=== PATIENT | female | born 1935 | race Caucasian/White ===

== ENCOUNTER → 2021-10-27 06:20 | Outpatient (CLI) | payer MEDICARE, SELFPAY ==
[2021-10-27 19:09] LABS: Anion Gap 9.3 mEq/L (5-15); Blood Urea Nitrogen 22 mg/dl (7-17); Calcium 9.2 mg/dl (8.4-10.2); Carbon Dioxide 30 mmol/L (22.0-30.0); Chloride 103 mmol/L (98-107); Estimated Glomerular Filt Rate 59 ml/min (>60); GFR (African American) 72 ML/MIN (>60); Glucose 85 mg/dl (74-100); Potassium 4.3 mmoL/L (3.5-5.1); Sodium 138 mmol/L (136-145)
== END ==
PROVIDERS: PCP Nurse Practitioner; Visit Provider Nurse Practitioner
DX: I10 Essential (primary) hypertension (principal)
CPT/HCPCS: 80048

== ENCOUNTER → 2022-02-04 11:25 | Outpatient (CLI) | payer MEDICARE, SELFPAY ==
[2022-02-04 18:16] LABS: Adenovirus,PCR Not Detected (NotDetected); Bordetella Pertussis Not Detected (NotDetected); Chlamydophila Pneumoniae, PCR Not Detected (NotDetected); Coronavirus 19, PCR Not Detected (NotDetected); Coronavirus 229E Not Detected (NotDetected); Coronavirus NL63 Not Detected (NotDetected); Coronavirus OC43 Not Detected (NotDetected); Coronovirus HKU1,PCR Not Detected (NotDetected); Influenza A, PCR Not Detected (NotDetected); Influenza AH1, 2009 Not Detected (NotDetected); Influenza AH1, PCR Not Detected (NotDetected); Influenza AH3,PCR Not Detected (NotDetected); Influenza B, PCR Not Detected (NotDetected); Mycoplasma Pneumoniae, PCR Not Detected (NotDetected); Parainfluenza 1, PCR Not Detected (NotDetected); Parainfluenza 2, PCR Not Detected (NotDetected); Parainfluenza 3, PCR Not Detected (NotDetected); Parainfluenza 4, PCR Not Detected (NotDetected); Respiratory Syncytial Virus Not Detected (NotDetected); Rhinovirus/Enterovirus Not Detected (NotDetected)
[2022-02-04 18:34] LABS: Basophils % 0.7 % (0.1-2.0); Eosinophils # 0.2 K/mm3 (0.0-0.4); Eosinophils % 3.1 % (0.1-12.0); Hematocrit 42.2 % (37.0-47.0); Hemoglobin 13.5 g/dL (12.2-16.2); Lymphocytes # 0.8 K/mm3 (0.7-4.5); Lymphocytes % 15.9 % (10-50); Mean Corpuscular Hemoglobin 30.2 pg (27.0-31.2); Mean Corpuscular Volume 94.4 fl (81-99); Mean Platelet Volume 8.7 fl (7.4-10.4); Monocytes # 0.2 K/mm3 (0.1-1.0); Monocytes % 4.4 % (1.7-9.3); Neutrophils % 75.9 % (37.0-80.0); Platelet Count 155 K/mm3 (142-424); Red Blood Count 4.47 M/mm3 (4.20-5.40); Red Cell Distribution Width 13.8 % (11.5-17.5); White Blood Count 5.3 K/mm3 (4.8-10.8)
[2022-02-05 12:57] LABS: Human Metapneumovirus Detected (NotDetected)
== END ==
PROVIDERS: PCP Nurse Practitioner; Visit Provider Nurse Practitioner
DX: J06.9 Acute upper respiratory infection, unspecified (principal); R05.9 Cough, unspecified; B97.81 Human metapneumovirus as the cause of diseases classified elsewhere
CPT/HCPCS: 85025; 87581; 87632; 87798; C9803; U0003; U0005

== ENCOUNTER → 2023-01-17 07:12 | Outpatient (CLI) | payer MEDICARE, SELFPAY ==
[2023-01-17 19:16] LABS: Basophils % 0.3 % (0.1-2.0); Eosinophils # 0.1 K/mm3 (0.0-0.4); Eosinophils % 2.1 % (0.1-12.0); Hematocrit 44.7 % (37.0-47.0); Hemoglobin 14.9 g/dL (12.2-16.2); Lymphocytes # 1.1 K/mm3 (0.7-4.5); Lymphocytes % 16.1 % (10-50); Mean Corpuscular HGB Conc 33.3 g/dL (31.8-35.4); Mean Corpuscular Hemoglobin 31.5 pg (27.0-31.2); Mean Corpuscular Volume 94.8 fl (81-99); Mean Platelet Volume 9.3 fl (7.4-10.4); Monocytes # 0.4 K/mm3 (0.1-1.0); Monocytes % 5.2 % (1.7-9.3); Neutrophils # 5.1 K/mm3 (1.8-7.8); Neutrophils % 76.3 % (37.0-80.0); Platelet Count 147 K/mm3 (142-424); Red Blood Count 4.72 M/mm3 (4.20-5.40); Red Cell Distribution Width 13.5 % (11.5-17.5); White Blood Count 6.7 K/mm3 (4.8-10.8)
[2023-01-17 19:34] LABS: Alanine Aminotransferase 22 U/L (12-78); Albumin Level 3.8 g/dl (3.5-5.0); Albumin/Globulin Ratio 1.5 (1.1-1.8); Alkaline Phosphatase 79 U/L (38-126); Anion Gap 10.9 mEq/L (5-15); Aspartate Amino Transferase 29 U/L (14-36); Bilirubin,Total 0.3 mg/dl (0.2-1.3); Blood Urea Nitrogen 22 mg/dl (7-17); Calcium 9.2 mg/dl (8.4-10.2); Carbon Dioxide 29 mmol/L (22.0-30.0); Chloride 103 mmol/L (98-107); Estimated Glomerular Filt Rate 52 ml/min (>60); GFR (African American) 63 ML/MIN (>60); Globulin 2.6 g/dL (1.3-3.2); Glucose 81 mg/dl (74-100); Potassium 3.9 mmoL/L (3.5-5.1); Sodium 139 mmol/L (136-145); Total Protein,Serum 6.4 g/dl (6.3-8.2)
[2023-01-17 20:05] LABS: Thyroid Stimulating Hormone 1.79 uIU/mL (0.465-4.68)
== END ==
PROVIDERS: PCP Nurse Practitioner; Visit Provider Nurse Practitioner
DX: I10 Essential (primary) hypertension (principal)
CPT/HCPCS: 80053; 84443; 85025

== ENCOUNTER → 2023-01-20 23:36 | Outpatient (CLI) | payer MEDICARE, SELFPAY ==
[2023-01-20 19:50] LABS: Coronavirus 19, PCR Not Detected (NotDetected); Influenza A, PCR Not Detected (NotDetected); Influenza B, PCR Not Detected (NotDetected)
[2023-01-20 20:00] LABS: Creatinine,Urine Random 82 mg/dL (Not Estab.)
[2023-01-20 20:03] LABS: Microalbumin/Creatinine Ratio 25.4
== END ==
PROVIDERS: PCP Nurse Practitioner; Visit Provider Nurse Practitioner
DX: I10 Essential (primary) hypertension (principal); J06.9 Acute upper respiratory infection, unspecified
CPT/HCPCS: 82043; 82570; 87636

== ENCOUNTER → 2023-02-02 09:18 | Outpatient (CLI) | payer MEDICARE, SELFPAY | PROVIDERS: PCP Nurse Practitioner; Visit Provider Nurse Practitioner | DX: N12 Tubulo-interstitial nephritis, not specified as acute or chronic (principal) | CPT/HCPCS: 87086 ==

== ENCOUNTER 2023-09-06 18:00 | Outpatient (CLI) | payer MEDICARE, SELFPAY ==
[2023-09-06 19:30] LABS: Creatinine,Urine Random 126 mg/dL (Not Estab.)
[2023-09-06 19:33] LABS: Microalbumin/Creatinine Ratio 69.6
[2023-09-06 19:48] LABS: Alanine Aminotransferase 25 U/L (12-78); Albumin Level 3.8 g/dl (3.5-5.0); Albumin/Globulin Ratio 1.4 (1.1-1.8); Alkaline Phosphatase 74 U/L (38-126); Aspartate Amino Transferase 32 U/L (14-36); Bilirubin,Total 0.5 mg/dl (0.2-1.3); Blood Urea Nitrogen 39 mg/dl (7-17); Calcium 9.2 mg/dl (8.4-10.2); Carbon Dioxide 28 mmol/L (22.0-30.0); Chloride 101 mmol/L (98-107); Estimated Glomerular Filt Rate 39 ml/min (>60); GFR (African American) 47 ML/MIN (>60); Globulin 2.7 g/dL (1.3-3.2); Glucose 123 mg/dl (74-100); Sodium 139 mmol/L (136-145); Total Protein,Serum 6.5 g/dl (6.3-8.2)
== END 2023-09-06 23:59 | disposition home or self-care (01) ==
LOC: LAB.DROPOF 09-07 13:54
PROVIDERS: PCP Nurse Practitioner; Visit Provider Nurse Practitioner
DX: I10 Essential (primary) hypertension (principal)
CPT/HCPCS: 80053; 82043; 82570

== ENCOUNTER 2024-02-01 10:15 | Outpatient (CLI) | payer MEDICARE, SELFPAY ==
[2024-02-01 18:53] LABS: Basophils # 0.1 K/mm3 (0-0.2); Basophils % 0.8 % (0.1-2.0); Eosinophils # 0.1 K/mm3 (0.0-0.4); Eosinophils % 1.1 % (0.1-12.0); Hematocrit 46.3 % (37.0-47.0); Hemoglobin 15.5 g/dL (12.2-16.2); Lymphocytes # 0.9 K/mm3 (0.7-4.5); Lymphocytes % 15.4 % (10-50); Mean Corpuscular HGB Conc 33.6 g/dL (31.8-35.4); Mean Corpuscular Hemoglobin 31.4 pg (27.0-31.2); Mean Corpuscular Volume 93.4 fl (81-99); Mean Platelet Volume 8.7 fl (7.4-10.4); Monocytes # 0.3 K/mm3 (0.1-1.0); Monocytes % 4.7 % (1.7-9.3); Neutrophils # 4.8 K/mm3 (1.8-7.8); Platelet Count 186 K/mm3 (142-424); Red Blood Count 4.95 M/mm3 (4.20-5.40); Red Cell Distribution Width 13.6 % (11.5-17.5); White Blood Count 6.1 K/mm3 (4.8-10.8)
[2024-02-01 19:33] LABS: Alanine Aminotransferase 20 U/L (12-78); Albumin Level 4.1 g/dl (3.5-5.0); Albumin/Globulin Ratio 1.7 (1.1-1.8); Alkaline Phosphatase 80 U/L (38-126); Anion Gap 12.9 mEq/L (5-15); Aspartate Amino Transferase 29 U/L (14-36); Bilirubin,Total 0.6 mg/dl (0.2-1.3); Blood Urea Nitrogen 29 mg/dl (7-17); Calcium 9.2 mg/dl (8.4-10.2); Carbon Dioxide 26 mmol/L (22.0-30.0); Chloride 104 mmol/L (98-107); Estimated Glomerular Filt Rate 47 ml/min (>60); GFR (African American) 57 ML/MIN (>60); Globulin 2.4 g/dL (1.3-3.2); Glucose 86 mg/dl (74-100); Potassium 4.9 mmoL/L (3.5-5.1); Sodium 138 mmol/L (136-145); Total Protein,Serum 6.5 g/dl (6.3-8.2)
[2024-02-01 20:11] LABS: Thyroid Stimulating Hormone 0.87 uIU/mL (0.465-4.68)
== END 2024-02-01 23:59 | disposition home or self-care (01) ==
LOC: LAB.DROPOF 02-02 14:37
PROVIDERS: PCP Nurse Practitioner; Visit Provider Nurse Practitioner
DX: I10 Essential (primary) hypertension (principal); N28.9 Disorder of kidney and ureter, unspecified; N39.0 Urinary tract infection, site not specified
CPT/HCPCS: 80053; 84443; 85025; 87086

== ENCOUNTER 2024-09-25 10:36 | Outpatient (CLI) | payer MEDICARE, SELFPAY ==
--- OUTSIDE RECORDS SUMMARY | 2023-02-16 10:40 | XMS_ITS | Continuity of Care Document ---
Author Organization [facility] Address [address] [place] [address] Phone Care Team Providers Care Dust Collector Treater Name Role Phone Stevan Garcia MD Unavailable Unavailable Allergies, Adverse Reactions, Alerts Substance Reaction Status Criticality No Known Allergies Active No Inform ation Medications Medication Instructions Dosage Effective Dates (start - stop) Status Comments PROLENSA 0.07% SOLUTION INSTILL 1 DROP INTO SURGICAL EYE(S) ONCE DAILY, STARTING THE DAY BEFORE AND MORNING OF SURGERY. CONTINUE ONCE DAILY FOR 4 WEEKS. - Active prednisolone acetate 1 % eye drops,suspension instill 1 drop by ophthalmic route 4 times every day into right eye 1.00 drop - Active moxifloxacin 0.5 % eye drops instill 1 drop by ophthalmic route 4 times every day into left eye 1 drop - Active Inveltys 1 % eye drops,suspension instill 1 drop by ophthalmic route in the surgery eye 3 times daily AFTER surgery and Taper as directed - Active Substitute: 1. Lotemax SM-0.38% (If copay is more than $60, please apply coupon card) 2.Prednisolone Acetate 1%. (1&2dispensed same as above)Both-1 drop TID after surgery, taper as directed Besivance 0.6 % eye drops,suspension Instill 1 drop by ophthalmic route TID into operative eye the day before and 1 drop the morning of surgery. Continue TID for 1 week. - Active Subsutution: Vigamox (moxi) 0.5% 3ml-Instill 1 drop by ophthalmic route TID into operative eye 1 day before surgery and 1 drop the morning of surgery. Continue for TID for 1 weeK lisinopril 5 mg tablet take 0.5 tablet by oral route 2 times every day 2.5 MG - Active Patient splits the pill in half and takes one in the morning and one at night Vazalore 81 mg capsule take 1 capsule by oral route every day 1 capsule - Active PROLENSA 0.07% SOLUTION INSTILL 1 DROP INTO SURGICAL EYE(S) ONCE DAILY, STARTING THE DAY BEFORE AND MORNING OF SURGERY. CONTINUE ONCE DAILY FOR 4 WEEKS. - No Longer Active Prolensa 0.07 % eye drops Instill 1 drop by ophthalmic route in the operative eye once the day before surgery and once the morning of. Continue QD x 4 weeks - No Longer Active Substitute: 1. Bromsite 1 drop QD in operative eye day before and morning of surgery, and 4 weeks after. 2.Ketorolac (.4% or .5%) 1 drop QD before surgery & morning of. Taper directed for 4 weeks Procedures Procedure Date Post OP Visit ADB Post Op Follow Up Visit Ophthalmic Biometry W Iol Calculation Pr of Comp Unilateral Toric Florentin Extracapsular Cataract Remov al With IOl Manual Or Pediatric Dermatologist Wo Endoscopic Post Op Follow Up Visit Post OP Visit ADB Toric Florentin Extracapsular Cataract Remov al With IOl Manual Or Pediatric Dermatologist Wo Endoscopic Surg Deposit Dr Surg Deposit Lens Ophthal DX Image Post Retina I And R Uni Or Bi CORNEAL TOPOGRAPHY Oct OFFICE/OUTPATIENT VISIT, NEW Advance Directives Directive Yes / No Effective Date File Name No Information Encounters Encounter Description Practice Location Reason(s) For Visit Diagnoses Date Provider Providers Copied on Encounter [facility] , [address], [place], [address], [place] tel:[phone] [facility] [place] No Information 3 Radha Calles. [address], [place], [place], [id number], [place]. tel:[phone] [facility] , [address] [facility], [place], [place], [facility], tel:[phone] [facility] [place] s/p Phaco (chief complaint) Presence of intraocular lens 3 Francis Graham. [address] [place], [place], [id number], [place]. tel:[phone] Referring Provider: Gladys Blanco, [address] [place], [address]. tel:[phone] [facility] , [address] [facility], [place], [place], [facility], tel:[phone] [facility] [place] [address] same day s/p phaco (chief complaint) Presence of intraocular lens 3 Radha Calles. [address] [facility] , [place], [place], [id number], [place]. tel:[phone] Referring Provider: Stvean Augustin, [address] [facility] , [place], [address]. tel:[phone] [facility] , [address] [facility], [place], [facility], tel:[phone] [facility] Age-related nuclear cataract, left eyeCortical age-related cataract, left eyePosterior subcapsular polar age-related cataract, left eyeRegular astigmatism, left eye 3 Radha Calles. [address] [facility] , [place], [place], [id number], [place]. tel:[phone] Referring Provider: Stevan Augustin, [address] [facility] , [place], [address]. tel:[phone] [facility] , [address] [facility], [place], [facility], tel:[phone] [facility] [place] [address] s/p Phaco (chief complaint) Presence of intraocular lens 3 Radha Calles. [address] [facility] , [place], [place], [id number], [place]. tel:[phone] Referring Provider: Stevan Augustin, [address] [facility] , [place], [address]. tel:[phone] [facility] , [address] [place], [place], [facility], [place] tel:[phone] [facility] [place] [address] S/P Phaco (chief complaint) Presence of intraocular lens 3 Ramila Gonzalez. [address] [place], [place], [id number], [place]. tel:[phone] Referring Provider: Carlos Sommers, [address] [place], [address]. tel:[phone] [facility] , [address] [place], [place], [facility], tel:[phone] [facility] Age-related nuclear cataract, right eyeCortical age-related cataract, right eyePosterior subcapsular polar age-related cataract, right eyeRegular astigmatism, right eye 3 Radha Calles. [address] [facility] , [place], [place], [id number], [place]. tel:[phone] Referring Provider: Stevan Augustin, [address] [facility] , [place], [address]. tel:[phone] [facility] , [address] [facility], [place], [facility], [place] tel:[phone] [facility] [place] No Information Oct-2 3 Radha Calles. [address] [facility] , [place], [place], [id number], [place]. tel:[phone] [facility] , [address] [place], [place], [facility], [place] tel:[phone] [facility] No Information Oct-2 2 3 Radha Calles. [address], [place], [place], [id number], . tel:[phone] Referring Provider: Atul Pham, [address] [place], [address]. tel:[phone] OFFICE/OUTPAT IENT VISIT, [facility] , [address], [place], [address], [place] tel:[phone] [facility] Cat[facility]acts (chief complaint) Cataract - Nuclear sclerosis, both eyesCataract - Cortical, both eyesCataract - Posterior subcapsular/p olar, both eyesEarly dry stage nonexudative age-related macular degeneration of both eyes Oct-2 0 3 Radha Calles. [address] [facility] , [place], [place], [id number], . tel:[phone] Referring Provider: Stevan Augustin, [address] [facility] , [place], [address]. tel:[phone] Family History Family Member Type Diagnosis Age At Onset Problem No family history of Cancer, unknown type Father Problem Hypertension Mother Problem Cataracts Mother Problem Retinal disease Mother Problem Glaucoma Problem No family history of Diabete s mellitus Payers Payer name Insurance type Covered constitution party ID Authoriza tion(s) [employer] Medicare [id number] Social History Type Description Quantity Date Captured Comments Sex Female Smoking Status No Information Chief Complaint And Reason For Visit No Information Reason For Referral Reason For Referral No Information History Of Present Illness Encounter Date Complaint History Of Prese nt Illness s/p Phaco The 87 year old patient presents for evaluation of s/p Phaco in the left eye. Pt states VA is better since using Refresh. Pt denies any pain and no new flashes or floaters. Pt states she has ordered the second script for the three drops, and is wondering if she should order more. Pt is wondering if she can bend over or lift anything and when shes allowed to wash her face pt wasnt sure how long the restriction lasted. Meds: Prednisolone 3/3 Moxifloxacin 3/3 Prolensa / same day s/p phaco The 87 year o ld patient presents for evaluation of same day s/p phaco in the left eye. Patient denies any pain. Patient went home and used drops post procedure. She has instilled one of each drop OS. PRED 0/3Moxifloxacin 0/3Prolensa 0/1 s/p Phaco The 87 year old patient presents for evaluation of s/p Phaco in the right eye. Pt states VA is good. Pt denies any pain and no new flashes or floaters. Pt states her OP told her she has Macular Degeneration, isn't sure which eye but just has more questions in regards to it. 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 Pt says their vision is doing well. Pt complains of slight itching. Pt denies redness, discharge, floaters, and flashers. Pt Sx eye still dilated. Pt denies any complications with their eye drops. Drops:Pred 3/0Moxi 3/0Prolensa 1/0 Cataracts The 87 year old patient presents for evaluation of Cataracts in the right and left eyes. Patient presents with poor vision in OU. The vision has been poor for the past couple years. Vision is gradually worsening. Patient is having difficulty with glare driving at night. No improvement with glasses. Referred by Dr. Atul Pham. -see [id number]/Retina/Macula Degen FHx: Mother-GlaucomaMeds: No(-) History of crossed or lazy eye (-) Flomax (tamsulosin) use(-) Eye trauma(-) Diabetes(+) Blood thinners -aspirin(-) Prior LASIK/PRK (+) History of eye surgery, -[facility] Laser(-) Prior CTL wear Functional Status Date Functional Assessmen t No Information Medications Administered Medication Instructions Dosage Effective Dates (start - stop) Status Comments PROLENSA 0.07% SOLUTION INSTILL 1 DROP INTO SURGICAL EYE(S) ONCE DAILY, STARTING THE DAY BEFORE AND MORNING OF SURGERY. CONTINUE ONCE DAILY FOR 4 WEEKS. - No Longer Active Instructions Date Instruction Additional Infor john Impression/Plan Related to Prese nce of intraocular lens Impression/Plan Related to Prese nce of intraocular lens Impression/Plan Related to Prese nce of intraocular lens Impression/Plan Related to Prese nce of intraocular lens Impression/Plan Related to Catar act - Posterior subcapsular/polar, both eyes Assessments Type Assessment Date No Information Patient Care Teams Name Effective Dates (start - stop) Status Members No Information
[2024-09-25 20:07] LABS: Hematocrit 40.5 % (37.0-47.0); Hemoglobin 14.0 g/dL (12.2-16.2); Immature Granulocytes % 0.2 %; Mean Corpuscular HGB Conc 34.6 g/dL (31.8-35.4); Mean Corpuscular Hemoglobin 35.3 pg (27.0-31.2); Mean Corpuscular Volume 102.0 fl (81-99); Nucleated Red Blood Cells % 0 %; Platelet Count 157 K/mm3 (142-424); Red Blood Count 3.97 M/mm3 (4.20-5.40); Red Cell Distribution Width-SD 47.8 fL; White Blood Count 4.8 K/mm3 (4.8-10.8)
[2024-09-25 20:24] LABS: Alanine Aminotransferase 17 U/L (12-78); Albumin Level 4.2 g/dl (3.5-5.0); Albumin/Globulin Ratio 1.8 (1.1-1.8); Alkaline Phosphatase 71 U/L (38-126); Anion Gap 17.6 mEq/L (5-15); Aspartate Amino Transferase 24 U/L (14-36); Bilirubin,Total 0.4 mg/dl (0.2-1.3); Blood Urea Nitrogen 33 mg/dl (7-17); Calcium 9.4 mg/dl (8.4-10.2); Carbon Dioxide 25 mmol/L (22.0-30.0); Chloride 103 mmol/L (98-107); Cholesterol 223 mg/dl (140-200); Creatinine,Serum 1.20 mg/dl (0.52-1.04); Estimated Glomerular Filt Rate 42 ml/min (>60); GFR (African American) 51 ML/MIN (>60); Globulin 2.4 g/dL (1.3-3.2); Glucose 92 mg/dl (74-100); HDL Cholesterol 53 mg/dl (40-60); Potassium 4.6 mmoL/L (3.5-5.1); Sodium 141 mmol/L (136-145); Total Protein,Serum 6.6 g/dl (6.3-8.2); Triglycerides 156 mg/dl (30-150)
[2024-09-25 20:44] LABS: 25-OH Vitamin D, Total 39.4 ng/mL (30-100)
[2024-09-25 20:55] LABS: Thyroid Stimulating Hormone 0.83 uIU/mL (0.465-4.68)
[2024-09-25 21:14] LABS: Vitamin B12 655 pg/mL (239-931)
[2024-09-25 21:36] LABS: Hemoglobin A1C 6.2 % (4.0-6.0)
--- OUTSIDE RECORDS SUMMARY | 2024-09-26 10:16 | XMS_ITS | Encounter Summary ---
Author Organization [facility] [place] [address] Care Team Providers Care Wood Carver Hand Name Role Phone Portia Domingo Primary Care Provider [phone] Sachin Gaytan DPM Unavailable Unavaila Manjula Wahl MD Unavailable [phone] Anyi Caro APRN Primary Care Provider [phone] Encounter Details Date Type Department Care Team (Late st Contact Info) Description 08/19/2020 Orders Only [facility] [address] [place] [id number] Gris Velez MD [address] [place] [phone] Social History Tobacco Use Types Packs/Day Years Used Date Smoking Tobacco: Never Smokeless Tobacco: Never Alcohol Use Standard Drinks/Week Comments No 0 (1 standard drink = 0.6 oz pur e alcohol) Comments No Sex and Gender Information Value Date Recorded Sex Assigned at Not on file Legal Sex Female 3:57 PM EDT Gender Identity Not on file Sexual Orientation Not on file COVID-19 Exposure Response Date Recorded In the last month, have you been in contact with someone who was confirmed or suspected to have Coronavirus / COVID-19? No / Unsure 08/22/2020 3:05 PM EDT documented as of this encounter Functional Status * Cognitive and Functional Status Question Answer Date of Assessment Author Is the person deaf or does h e/she have serious difficulty hearing? No 08/19/2020 3:00 PM EDT Ciera Yung RN Is the person blind or does he/she have serious difficulty seeing even when wearing glasses? No 08/19/2020 3:00 PM EDT Meño Dailey RN Does this person have seriou s difficulty walking or climbing stairs? No 08/19/2020 3:00 PM EDT Ciera Dailey RN Does this person have diffic ulty dressing or bathing? No 08/19/2020 3:00 PM LURDEST Ciera Dailey RN * Is the person deaf or does he/she have serious difficulty hearing? Answer Date of Assessment Author No 08/19/2020 3:00 PM Ciera Garcia RN * Is the person blind or does he/she have serious difficulty seeing even when wearing glasses? Answer Date of Assessment Author No 08/19/2020 3:00 PM Ciera Garcia RN * Does this person have serious difficulty walking or climbing stairs? Answer Date of Assessment Author No 08/19/2020 3:00 PM Ciera Garcia RN * Does this person have difficulty dressing or bathing? Answer Date of Assessment Author No 08/19/2020 3:00 PM Ciera Garcia RN * Because of a physical, mental or emotional condition, does this person have difficulty doing errands alone such as visiting a doctor's office or shopping? Answer Date of Assessment Author No 08/19/2020 3:00 PM Ciera Garcia RN documented as of this encounter Mental Status * Cognitive and Functional Status Question Answer Entry Date Author Because of a physical, menta l or emotional condition, does this person have difficulty doing errands alone such as visiting a doctor's office or shopping? No 08/19/2020 3:00 PM Ciera Garcia RN Because of a physical, menta l or emotional condition, does this person have serious difficulty concentrating, remembering or making decisions? No 08/19/2020 3:00 PM Ciera Garcia RN * Because of a physical, mental or emotional condition, does this person have serious difficulty concentrating, remembering or making decisions? Answer Entry Date Author No 08/19/2020 3:00 PM EDT MastersCiera RN documented in this encounter Plan of Treatment Upcoming Encounters Date Type Department Care Team (Late st Contact Info) Description 10/05/2024 9:00 AM EDT [address]ment [address] [place] [address] Manjula Vyas MD [address] [place] [address] [place] [id number] 10/08/2024 8:30 AM EDT Appointment [address] [place] [address] 10/08/2024 9:00 AM EDT Appointment [address] [place] [address] Manjula Vyas MD [address] [place] [address] [place] [address] 10/12/2024 9:45 AM EDT Office Visit [facility] [address] [facility] [address] [place] [address] Fitz Rocha PA-C [address] [place], [place] [id number] documented as of this encounter Goals Goal Patient Goal Type Associated Problems Recent Progress Patient-Stated? Author Maintain a healthy diet, exercise regularly and maintain an ideal body weight General Beatriz Lugo documented as of this encounter Procedures Procedure Name Priority Date/Time Associated Diagnosis Comments NEOGENOMICS T&B TISSUE PANEL Routine 08/19/2020 10:46 AM EDT documented in this encounter Results * NEOGENOMICS T&B TISSUE PANEL (08/19/2020 10:46 AM EDT) Pathologist [facility] Result Diagnosis = Brook monoclonal B-cells, consistent with a B-cell lymphoproliferative disorder. Comments = Flow cytometry shows a monoclonal B-cell population (15.8% of total cells) without detectable CD5, CD10 or CD11c expression, consistent with a B-cell lymphoma/leukemia. 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 Please correlate the result with morphologic findings and clinical information. Lymphocytes = T-cells (81% of lymphoid cells) show a CD4/CD8 ratio about 5.4 without overt phenotypic abnormality. NK-cells (1% of lymphoid cells) are unremarkable. Mature B-cells (18% of lymphoid cells) are monoclonal with light chain restriction and show: CD19 mod, CD20 mod, CD5 neg, CD10 neg, CD11c neg, CD23 neg, HLA-DR mod, and kappa mod (kappa:lambda 11.3). 27% of monoclonal B-cells are large in size by forward light scatter. Monocytes = Monocytes show phenotypic evidence of maturation without dysmaturation. Granulocytes = Granulocytes show phenotypic evidence of maturation without dysmaturation. CD45 Dim = CD34+ cells (0.0% of total cells) are not increased. [facility] 08/19/2020 10:4 6 AM EDT Narrative [facility] - 08/21/2020 11:23 AM EDT Requesting Provider: David Kenyonabdoulaye Specimen = [id number] us Gris Velez MD PATHOLOGY ORDERABLES Final Resul t [facility] [address] [place] [address] documented in this encounter Visit Diagnoses Not on filedocumented in this encounter Additional Health Concerns Assessment Noted Time A fall risk assessment has been complete d for the patient 02/06/2015 9:12 AM EST documented as of this encounter Care Teams Wood Carver Hand Relationship Specialty Start Date End Date Portia Domingo [address] [place], [place] [address]E [address] [place] [address] PCP - General 07/30/00 02/21/24 Anyi Caro APRN [facility] [place] [address] [place] [address] PCP - General Nurse Practitioner 02/22/24 Sachin Gaytan DPM [address] [place] [address] Mine Car Repairer-Primary Podiatric Medicine 12/20/13 Manjula Vyas MD [address] [facility] [place] [address] Medical Oncologist Internal Medicine-Hematology and Oncology 08/19/20 documented as of this encounter
--- OUTSIDE RECORDS SUMMARY | 2024-09-26 10:17 | XMS_ITS | Encounter Summary ---
Author Organization [place] [address] Care Team Providers Care Graves Registration Specialist Name Role Phone Portia Domingo Primary Care Provider [phone] Sachin Gaytan DPM Unavailable Unavaila Manjula Wahl MD Unavailable [phone] Anyi Caro APRN Primary Care Provider [phone] Encounter Details Date Type Department Care Team (Late st Contact Info) Description 08/19/2020 Orders Only [facility] [address] [place] [id number] Gris Velez MD [address] [place] [phone] Social History Tobacco Use Types Packs/Day Years [...] Date Author No 08/19/2020 3:00 PM EDT sCiera RN documented in this encounter Plan of Treatment Upcoming Encounters Date Type Department Care Team (Late st Contact Info) Description 10/05/2024 9:00 AM EDT Appointment [address] [place] [address] Manjula Vyas MD [address] [place], [place] [id number] 10/08/2024 8:30 AM EDT Appointment [address] [place] [address] 10/08/2024 9:00 AM EDT Appointment [address] [place] [address] Manjula Vyas MD [address] [place] [address] [place] [address] 10/12/2024 9:45 AM EDT [facility] [address] [facility] [address] [place] [address] Fitz Rocha PA-C [address] [place], [place] [id number] documented as of this encounter Goals Goal Patient Goal Type Associated Problems Recent Progress Patient-Stated? Author Maintain a healthy diet, exercise regularly and maintain an ideal body weight General Beatriz Lugo documented as of this encounter Procedures Procedure Name Priority Date/Time Associated Diagnosis Comments NEOGENOMICS HIGH-GRADE/LARGE B-CELL LYMPHOMA FISH Routine 08/19/2020 10:46 AM EDT documented in this encounter Results * NEOGENOMICS HIGH-GRADE/LARGE B-CELL LYMPHOMA FISH (08/19/2020 10:46 AM EDT) [facility] Result Results = See Below BCL6 (3q27) (Result) = Not Detected (Atypical) MYC (8q24) (Result) = Not Detected (Atypical) BCL2 (18q21) (Result) = Not Detected (Atypical) BCL6 (3q27) (Reference Ranges) = The sample is considered POSITIVE for BCL6 gene rearrangement if 11.6% or more nuclei show a break-apart pattern (1R1G1F). BCL2 (18q21) (Reference Ranges) = The sample is considered POSITIVE for BCL2 gene rearrangement if 5.8% or more nuclei show a break-apart pattern (1R1G1F). Nuclei Scored = 50 Billing Results (CPT Code: 13726) = Probe Set: BCL6 (3q27), MYC (8q24), BCL2 (18q21) Scoring Method: Manual CPT Code: 74799 # of Units: 3 [facility] 08/19/2020 10:4 6 AM EDT Narrative [facility] - 08/28/2020 5:22 PM EDT Requesting Provider: David Zimmer Tati Specimen = [id number] us Gris Velez MD PATHOLOGY ORDERABLES Final Resul t [facility] 1 [place] [address] documented in this encounter Visit Diagnoses Not on filedocumented in this encounter Additional Health Concerns Assessment Noted Time A fall risk assessment has been complete d for the patient 02/06/2015 9:12 AM EST documented as of this encounter Care Teams Graves Registration Specialist Relationship Specialty Start Date End Date Portia Domingo [address] [place] [address] [address] [place] [address] PCP - General 07/30/00 02/21/24 Anyi Caro APRN [address] [place] [address] [address] [place] [id number] PCP - General Nurse Practitioner 02/22/24 Sachin Gaytan DPM [address] [place] [address] [address] [place] [address] Assistant Head Cashier-Primary Podiatric Medicine 12/20/13 Manjula Vyas MD 1 [facility] [place] [address] Medical Oncologist Internal Medicine-Hematology and Oncology 08/19/20 documented as of this encounter
--- OUTSIDE RECORDS SUMMARY | 2024-09-26 10:17 | XMS_ITS | Continuity of Care Document ---
Author Organization [facility] Address [address] [place] [address] Phone Care Team Providers Care Trains Dispatcher Supervisor Name Role Phone Sachin Gaytan DPDuy Unavailable Unavaila Manjula Wahl MD Unavailable [phone] Anyi Caro APRN Primary Care Provider [phone] Encounters Date Type Department Care Team Description 07/13/2024 10:30 AM EDT [facility] [address] [facility] [address] [place] [address] Fitz Rocha PA-C Knee strain, left, initial encounter (Primary Dx); Primary osteoarthritis of left knee 06/19/2024 12:57 PM EDT - 06/19/2024 11:59 PM EDT Hospital Encounter [place] [address] [place] [address] History of diffuse large B-cell lymphoma (Primary Dx) Discharge Disposition: Home or Self Care 06/13/2024 Telephone [facility] [address] [place] [address] Idris Lopez MD Other 04/10/2024 10:43 AM EST - 04/10/2024 11:59 PM EST Hospital Encounter [place] [address] [place] [address] History of diffuse large B-cell lymphoma (Primary Dx) Discharge Disposition: Home or Self Care 04/06/2024 4:15 PM EST Office Visit [facility] [address] [address] Fizt Rocha PA-C Knee strain, left, initial encounter (Primary Dx); Complex tear of medial meniscus of left knee as current injury, initial encounter; Primary osteoarthritis of left knee 02/28/2024 1:30 PM EST Office Visit [facility] [address] [place] [address] Leana Martinez NP Knee strain, left, initial encounter (Primary Dx); Complex tear of medial meniscus of left knee as current injury, initial encounter; Complex tear of lateral meniscus of left knee as current injury, initial encounter; Primary osteoarthritis of left knee 02/24/2024 2:00 PM EST [facility] [address] [address] Leana Martinez, TAPER MACHINE Chambers cyst, left; Knee strain, left, initial encounter 02/23/2024 1:45 PM EST Office Visit [facility] [address] [address] Leana Martinez, TAPER MACHINE Knee strain, left, initial encounter (Primary Dx); Chambers cyst, left 02/22/2024 Travel 02/22/2024 11:00 AM EST - 02/22/2024 11:52 AM EST Emergency [facility] [place] [address] Nena Aguilera MD Subchondral bone cyst (Primary Dx) Discharge Disposition: Home or Self Care 01/09/2024 8:01 AM EDT - 01/09/2024 11:59 PM EDT Hospital Encounter [facility] [place] [address] [place] [address] History of diffuse large B-cell lymphoma (Primary Dx) Discharge Disposition: Home or Self Care 01/09/2024 8:01 AM EDT - 01/09/2024 11:59 PM EDT Hospital Encounter [place] [address] [place] [address] Manjula Vyas MD History of diffuse large B-cell lymphoma (Primary Dx); Ground glass opacity present on imaging of lung; History of chemotherapy Discharge Disposition: Home or Self Care 01/06/2024 7:19 AM EDT - 01/06/2024 11:59 PM EDT Hospital Encounter [place] [address] [place] [address] Manjula Vyas MD Ground glass opacity present on imaging of lung Discharge Disposition: Home or Self Care 10/21/2023 8:07 AM EDT - 10/21/2023 11:59 PM EDT Hospital Encounter [facility] [place] [address] Anyi Caro APRN Encounter for screening mammogram for high-risk patient Discharge Disposition: Home or Self Care 10/10/2023 8:33 AM EDT - 10/10/2023 11:59 PM EDT Hospital Encounter [place] [address] [place] [address] Manjula Vyas MD History of diffuse large B-cell lymphoma (Primary Dx); Ground glass opacity present on imaging of lung; History of chemotherapy; Encounter for venous access device care Discharge Disposition: Home or Self Care 10/10/2023 8:30 AM EDT - 10/10/2023 8:32 AM EDT Hospital Encounter [place] [address] [place] [address] History of diffuse large B-cell lymphoma (Primary Dx) Discharge Disposition: Home or Self Care 10/07/2023 8:34 AM EDT - 10/07/2023 11:59 PM EDT Hospital Encounter [place] [address] [place] [address] Manjula Vyas MD History of diffuse large B-cell lymphoma; Pelvic mass Discharge Disposition: Home or Self Care 07/11/2023 8:08 AM EDT - 07/11/2023 11:59 PM EDT Hospital Encounter [place] [address] [place] [address] History of diffuse large B-cell lymphoma (Primary Dx) Discharge Disposition: Home or Self Care 04/11/2023 8:22 AM EST - 04/11/2023 11:59 PM EST Hospital Encounter [place] [address] [place] [address] History of diffuse large B-cell lymphoma (Primary Dx) Discharge Disposition: Home or Self Care 04/11/2023 8:22 AM EST - 04/11/2023 11:59 PM EST Hospital Encounter [place] [address] [place] [address] Manjula Vyas MD History of diffuse large B-cell lymphoma (Primary Dx); Pelvic mass; History of chemotherapy; Encounter for venous access device care Discharge Disposition: Home or Self Care 02/04/2023 Travel 02/04/2023 9:50 AM EST - 02/04/2023 10:20 AM EST Surgery [facility] [address] [place] [id number] Stevan Garcia MD CATARACT EXTRACTION WITH PHACOEMULSIFICATION AND INTRAOCULAR LENS 02/04/2023 9:48 AM EST Anesthesia Event [facility] [address] [place] [id number] Octavio Escobar MD Grigorieva, Anastassia, MD 02/04/2023 8:33 AM EST - 02/04/2023 10:44 AM EST Hospital Encounter [facility] [address] [place] [address] Stevan Garcia MD Discharge Disposition: Home or Self Care 01/26/2023 Travel 01/26/2023 9:50 AM EST - 01/26/2023 10:20 AM EST Surgery [facility] [address] [place] [address] Stevan Garcia MD CATARACT EXTRACTION WITH PHACOEMULSIFICATION AND INTRAOCULAR LENS 01/26/2023 9:43 AM EST Anesthesia Event [facility] [place] [address] Adama Olivares MD Grigorieva, Anastassia, MD 01/26/2023 8:15 AM EST - 01/26/2023 10:39 AM EST Hospital Encounter [facility] [place] [place] [address] Stevan Garcia MD Discharge Disposition: Home or Self Care 01/19/2023 Travel 01/10/2023 1:17 PM EDT - 01/10/2023 11:59 PM EDT Hospital Encounter [place] [address] [place] [address] History of diffuse large B-cell lymphoma (Primary Dx) Discharge Disposition: Home or Self Care 10/22/2022 Travel 10/22/2022 8:16 AM EDT - 10/22/2022 11:59 PM EDT Hospital Encounter [facility] [place] [facility] [place] [phone] Portia Domingo Encounter for screening mammogram for malignant neoplasm of breast Discharge Disposition: Home or Self Care 10/11/2022 Travel 10/11/2022 10:39 AM EDT - 10/11/2022 11:59 PM EDT Hospital Encounter [place] [address] [place] [address] Manjula Vyas MD History of diffuse large B-cell lymphoma (Primary Dx); Encounter for venous access device care; History of chemotherapy Discharge Disposition: Home or Self Care 10/08/2022 Travel 10/08/2022 8:30 AM EDT - 10/08/2022 11:59 PM EDT Hospital Encounter [place] [address] [place] [address] History of diffuse large B-cell lymphoma (Primary Dx); History of chemotherapy Discharge Disposition: Home or Self Care 10/08/2022 8:05 AM EDT - 10/08/2022 8:29 AM EDT Hospital Encounter [place] [address] [place] [address] Manjula Vyas MD History of diffuse large B-cell lymphoma Discharge Disposition: Home or Self Care 07/12/2022 Travel 07/12/2022 10:14 AM EDT - 07/12/2022 11:59 PM EDT Hospital Encounter [place] [address] [place] [address] History of diffuse large B-cell lymphoma (Primary Dx) Discharge Disposition: Home or Self Care 04/12/2022 Travel 04/12/2022 12:57 PM EST - 04/12/2022 11:59 PM EST Hospital Encounter [place] [address] [place] [address] History of diffuse large B-cell lymphoma (Primary Dx); Diffuse large B-cell lymphoma of intra-abdominal lymph nodes (HCC) Discharge Disposition: Home or Self Care 04/12/2022 12:57 PM EST - 04/12/2022 11:59 PM EST Hospital Encounter [place] [address] [place] [address] Manjula Vyas MD History of diffuse large B-cell lymphoma (Primary Dx); History of chemotherapy; Encounter for venous access device care Discharge Disposition: Home or Self Care 04/09/2022 Travel 04/09/2022 8:35 AM EST - 04/09/2022 11:59 PM EST Hospital Encounter [place] [address] [place] [address] Manjula Vyas MD History of diffuse large B-cell lymphoma Discharge Disposition: Home or Self Care 03/25/2022 Orders Only [facility] [id number] [place] [address] Redd Medina RPH 01/12/2022 Travel 01/12/2022 12:58 PM EDT - 01/12/2022 11:59 PM EDT Hospital Encounter [place] [address] [place] [address] History of diffuse large B-cell lymphoma (Primary Dx) Discharge Disposition: Home or Self Care 10/23/2021 8:02 AM EDT - 10/23/2021 11:59 PM EDT Hospital Encounter [facility] [place] [address] [place] [address] Portia Domingo Screening mammogram for high-risk patient Discharge Disposition: Home or Self Care 10/12/2021 Travel 10/12/2021 12:24 PM EDT - 10/12/2021 11:59 PM [place] [address] History of diffuse large B-cell lymphoma (Primary Dx) Discharge Disposition: Home or Self Care 10/12/2021 12:24 PM EDT - 10/12/2021 11:59 PM [place] [address] Manjula Vyas MD History of diffuse large B-cell lymphoma (Primary Dx); Pelvic mass; History of chemotherapy Discharge Disposition: Home or Self Care 10/09/2021 Travel 10/09/2021 8:56 AM EDT - 10/09/2021 11:59 [place] [address] Carly Mclean APRN History of diffuse large B-cell lymphoma Discharge Disposition: Home or Self Care 08/25/2021 12:29 AM EDT - 08/26/2021 2:02 PM EDT Hospital Encounter [facility] [address] [facility] [address] [facility] [place] [address] Bailee Jacob MD Discharge Disposition: Home or Self Care 08/24/2021 Travel 08/24/2021 4:22 PM EDT - 08/24/2021 11:24 PM EDT Emergency [facility] [address] [place] [address] Meño Rangel MD McClurg, Michael A, MD Renard, Cruff, MD Colitis (Primary Dx); Right lower quadrant abdominal pain; Abnormal CT of the abdomen Discharge Disposition: Discharge/Readmit 07/13/2021 Travel 07/13/2021 12:59 PM EDT - 07/13/2021 11:59 PM EDT Hospital Encounter [place] [address] [place] [address] Anticoagulation management encounter (Primary Dx); Chemotherapy follow-up examination; History of diffuse large B-cell lymphoma Discharge Disposition: Home or Self Care 07/13/2021 12:59 PM EDT - 07/13/2021 11:59 PM EDT Hospital Encounter [place] [address] [place] [address] Carly Mclean APRN History of diffuse large B-cell lymphoma (Primary Dx); Chemotherapy follow-up examination; History of DVT of lower extremity Discharge Disposition: Home or Self Care 07/10/2021 Travel 07/10/2021 10:30 AM EDT Office Visit [facility] [address] [id number] Lukas Underwood Sensorineural hearing loss (SNHL) of both ears (Primary Dx) 04/13/2021 Travel 04/13/2021 10:58 AM EST Hospital Encounter [place] [address] [place] [address] 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); Encounter for chemotherapy management Discharge Disposition: Home or Self Care 04/13/2021 10:59 AM EST - 04/13/2021 11:59 PM EST Hospital Encounter [place] [address] [place] [address] Carly Mclean APRN History of diffuse large B-cell lymphoma (Primary Dx); Anticoagulation management encounter; Chemotherapy follow-up examination; Chemotherapy-induced thrombocytopenia; Port-A-Cath in place; Hypertension, unspecified type; Nausea Discharge Disposition: Home or Self Care 04/10/2021 Travel 04/10/2021 9:03 AM EST - 04/10/2021 11:59 PM EST Hospital Encounter [place] [address] [place] [address] Manjula Vyas MD Diffuse large B-cell lymphoma of intra-abdominal lymph nodes (HCC) Discharge Disposition: Home or Self Care 04/09/2021 Refill [place] [address] [place] [address] Manjula Vyas MD Medication Refill 04/04/2021 Refill [place] [address] [place] [address] Manjula Vyas MD Medication Refill 03/17/2021 Refill Cancer [facility] [place] [address] Manjula Vyas MD Medication Refill 02/19/2021 Travel 02/19/2021 9:27 AM EST - 02/19/2021 11:59 PM EST Hospital Encounter [place] [address] [place] [address] 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) Discharge Disposition: Home or Self Care 02/10/2021 Refill [place] [address] [place] [address] Manjula Vyas MD Medication Refill 01/14/2021 Refill [place] [address] [place] [address] Manjula Vyas MD Medication Refill 01/12/2021 Travel 01/12/2021 10:51 AM EDT Hospital Encounter [place] [address] [place] [address] 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); Encounter for chemotherapy management Discharge Disposition: Home or Self Care 01/12/2021 10:52 AM EDT - 01/12/2021 11:59 PM EDT Hospital Encounter [place] [address] [place] [address] Manjula Vyas MD 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); Acute deep vein thrombosis (DVT) of calf muscle vein of right lower extremity (HCC); Anticoagulation management encounter; History of chemotherapy; History of immunotherapy Discharge Disposition: Home or Self Care 01/09/2021 Travel 01/09/2021 9:05 AM EDT - 01/09/2021 11:59 PM EDT Hospital Encounter [facility] [address] [place] [phone] Carly Mclean APRN Diffuse large B-cell lymphoma of intra-abdominal lymph nodes (HCC) Discharge Disposition: Home or Self Care 12/27/2020 5:40 PM EDT - 12/27/2020 6:52 PM EDT Emergency [facility] [place] [address] Iglesia Akins MD Subconjunctival hemorrhage of left eye (Primary Dx) Discharge Disposition: Home or Self Care 12/18/2020 Travel 12/18/2020 1:43 PM EDT - 12/18/2020 11:59 PM EDT Hospital Encounter [address] [place] [address] 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) Discharge Disposition: Home or Self Care 12/17/2020 Travel 12/17/2020 9:00 AM EDT Hospital Encounter [address] [place] [address] 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) Discharge Disposition: Home or Self Care 12/17/2020 9:01 AM EDT - 12/17/2020 11:59 PM EDT Hospital Encounter [address] [place] [address] Carly Mclean APRN 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); Encounter for chemotherapy management; Acute deep vein thrombosis (DVT) of right peroneal vein (HCC) Discharge Disposition: Home or Self Care 11/27/2020 Travel 11/27/2020 1:58 PM EDT - 11/27/2020 11:59 PM EDT Hospital Encounter [place] [address] [place] [address] 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) Discharge Disposition: Home or Self Care 11/26/2020 Travel 11/26/2020 9:13 AM EDT - 11/26/2020 11:59 PM EDT Hospital Encounter [place] [address] [place] [address] 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) Discharge Disposition: Home or Self Care 11/26/2020 9:13 AM EDT - 11/26/2020 11:59 PM EDT Hospital Encounter [place] [address] [place] [address] Katina Berry, MICHAELA 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); Encounter for chemotherapy management; Encounter for monitoring cardiotoxic drug therapy; Acute deep vein thrombosis (DVT) of right peroneal vein (HCC) Discharge Disposition: Home or Self Care 11/25/2020 Travel 11/25/2020 8:20 AM EDT - 11/25/2020 11:59 PM EDT Hospital Encounter [facility] [place] [address] [facility] Portia Domingo Encounter for screening mammogram for malignant neoplasm of breast Discharge Disposition: Home or Self Care 11/17/2020 Refill [place] [address] [place] [address] Manjula Vyas MD Medication Refill 11/04/2020 Travel 11/04/2020 12:47 PM EDT - 11/04/2020 11:59 PM EDT Hospital Encounter [place] [address] [place] [address] 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) Discharge Disposition: Home or Self Care 11/03/2020 Travel 11/03/2020 8:13 AM EDT Hospital Encounter [place] [address] [place] [address] 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) Discharge Disposition: Home or Self Care 11/03/2020 8:14 AM EDT - 11/03/2020 11:59 PM EDT Hospital Encounter [place] [address] [place] [address] Manjula Vyas MD 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); Acute deep vein thrombosis (DVT) of calf muscle vein of right lower extremity (HCC); Anticoagulation management encounter; Encounter for chemotherapy management; Encounter for antineoplastic immunotherapy Discharge Disposition: Home or Self Care 10/30/2020 Travel 10/30/2020 9:58 AM EDT - 10/30/2020 11:59 PM EDT Hospital Encounter [place] [id number] Carly Mclean APRN Diffuse large B-cell lymphoma of intra-abdominal lymph nodes (HCC) Discharge Disposition: Home or Self Care 10/28/2020 Refill [place] [address] [place] [address] Carly Mclean APRN Medication Refill 10/14/2020 Travel 10/14/2020 3:12 PM EDT - 10/14/2020 11:59 PM EDT Hospital Encounter [place] [address] [place] [address] 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) Discharge Disposition: Home or Self Care 10/13/2020 Travel 10/13/2020 8:56 AM EDT - 10/13/2020 9:09 AM EDT Hospital Encounter [place] [address] [place] [address] 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) Discharge Disposition: Home or Self Care 10/13/2020 9:10 AM EDT - 10/13/2020 11:59 PM EDT Hospital Encounter [place] [address] [place] [address] Carly Mclean APRN 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); Encounter for chemotherapy management; Hypokalemia; Acute deep vein thrombosis (DVT) of calf muscle vein of right lower extremity (HCC); Anticoagulation management encounter Discharge Disposition: Home or Self Care 10/03/2020 [facility] [place] [address],LD 09/29/2020 Travel 09/29/2020 11:30 AM EDT - 09/29/2020 11:59 PM EDT Hospital Encounter [address] [place] [address] Acute deep vein thrombosis (DVT) of right peroneal vein (HCC) (Primary Dx); Diffuse large B-cell lymphoma of intra-abdominal lymph nodes (HCC) Discharge Disposition: Home or Self Care 09/23/2020 Travel 09/23/2020 3:24 PM EDT - 09/23/2020 11:59 PM EDT Hospital Encounter [address] [place] [address] 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) Discharge Disposition: Home or Self Care 09/22/2020 Telephone [place] [address] [place] [address] Carly Mclean APRN 09/22/2020 [place] [facility] [place] [address] Manjula Vyas MD Results (Vascular Lab called with results ) 09/22/2020 2:45 PM EDT - 09/22/2020 11:59 PM EDT Hospital Encounter [facility] [place] [address] Carly Mclean APRN Right leg pain; Diffuse large B-cell lymphoma of intra-abdominal lymph nodes (HCC) Discharge Disposition: Home or Self Care 09/22/2020 Travel 09/22/2020 7:54 AM EDT - 09/22/2020 2:44 PM EDT Hospital Encounter [address] 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 [address] Adrián Helms, CHLOÉ 09/10/2020 Telephone [facility] [place] [address] Manjula Vyas MD Paperwork/forms (Asking for copy of path report w/collection date to be faxed) 09/10/2020 Telephone [facility] [place] [address] [place] [address] Suzi Castrejon, CHLOÉ Follow-up 09/05/2020 Travel 09/05/2020 12:30 PM EDT - 09/05/2020 12:46 PM EDT Hospital Encounter [facility] [place] [address] Manjula Vyas MD Diffuse large B-cell lymphoma of intra-abdominal lymph nodes (HCC) Discharge Disposition: Home or Self Care 09/05/2020 12:47 PM EDT - 09/05/2020 11:59 PM EDT Hospital Encounter [facility] [place] [address] Manjula Vyas MD Krumme, Sarah, APRN 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); Chemotherapy follow-up examination; Pancytopenia due to antineoplastic chemotherapy Discharge Disposition: Home or Self Care 09/02/2020 Telephone [facility] [place] [address] Manjula Vyas MD 09/01/2020 Travel 09/01/2020 Social Work [facility] [place] [address] Emmy Chin MANAGER MATH 09/01/2020 Telephone [facility] [place] [address] Manjula Vyas MD Medication Problem 09/01/2020 1:11 PM EDT - 09/01/2020 11:59 PM EDT Hospital Encounter [facility] [place] [id number] 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) Discharge Disposition: Home or Self Care 08/29/2020 [facility] [place] [address] Bere Ledesma, RD,LD 08/29/2020 Travel 08/29/2020 7:31 AM EDT - 08/29/2020 11:59 PM EDT Hospital Encounter [place] [address] Manjula Vyas MD 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 [address] Manjula Vyas MD Diffuse large B-cell lymphoma of intra-abdominal lymph nodes (HCC); Encounter for monitoring cardiotoxic drug therapy Discharge Disposition: Home or Self Care 08/28/2020 9:45 AM EDT - 08/28/2020 12:46 [place] [address] Manjula Vyas MD Diffuse large B-cell lymphoma of intra-abdominal lymph nodes (HCC) Discharge Disposition: Home or Self Care 08/27/2020 Travel 08/27/2020 9:38 AM EDT - 08/27/2020 11:59 PM EDT Hospital Encounter [facility] [place] [address] Manjula Vyas MD Schmitter, Jeffrey L, MD Diffuse large B-cell lymphoma of intra-abdominal lymph nodes (HCC) Discharge Disposition: Home or Self Care 08/26/2020 10:10 AM EDT - 08/26/2020 11:59 PM EDT Hospital Encounter [facility] [address] [facility] [address] [facility] [place] [id number] Diffuse large B-cell lymphoma, unspecified body region (HCC) Discharge Disposition: Home or Self Care 08/26/2020 9:34 AM EDT - 08/26/2020 10:09 AM EDT Hospital Encounter [facility] [address] [place] [address] Covid19, [facility] [place] Pre-op testing; Encounter for laboratory testing for COVID-19 virus Discharge Disposition: Home or Self Care 08/25/2020 Travel 08/25/2020 Orders Only [facility] [place] [address] [place] [address] Sarah Donahue, Diffuse large B-cell lymphoma, unspecified body region (HCC) (Primary Dx) 08/25/2020 Telephone [facility] [place] [place] [address] Esme Graham, Clerical Staff Procedure (PAC Insert ) 08/25/2020 Social Work [facility] [place] [address] Emmy Chin MANAGER MATH 08/25/2020 Telephone [facility] [place] [address] Manjula Vyas MD Schedule Appointment 08/22/2020 Travel 08/22/2020 3:10 PM EDT - 08/22/2020 11:59 PM EDT Hospital Encounter [facility] [place] [address] Manjula Vyas MD 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 [address] Gris Velez MD 08/19/2020 Orders Only [facility] [place] [address] Gris Velez MD 08/14/2020 7:34 PM EDT - 08/19/2020 4:21 PM EDT Hospital Encounter [place] [address] Meño Rangel MD Moise, Ephese, MD Watson, James Brandon, Retroperitoneal mass (Primary Dx) Discharge Disposition: Home or Self Care 08/14/2020 1:30 PM EDT Clinical Support [facility] [address] [place] [address] Beatriz Emery Generalized abdominal pain 08/14/2020 2:16 PM EDT - 08/14/2020 7:33 PM EDT Hospital Encounter [place] [address] [place] [address] Salina Willams APRN Generalized abdominal pain Discharge Disposition: Home or Self Care 08/14/2020 12:30 PM EDT Office Visit [facility] [address] [place] [address] Salina Willams APRN Generalized abdominal pain (Primary Dx); Back pain, unspecified back location, unspecified back pain laterality, unspecified chronicity; Retroperitoneal mass; Acute renal failure, unspecified acute renal failure type; Hypercalcemia 08/14/2020 Travel 07/30/2020 2:45 PM EDT - 07/30/2020 11:59 PM EDT Hospital Encounter [facility] [address] [place] [address] Acute back pain with sciatica, right; Acute back pain with sciatica, left Discharge Disposition: Home or Self Care 07/30/2020 Travel 11/27/2019 Travel 11/27/2019 11:18 AM EDT - 11/27/2019 11:59 PM EDT Hospital Encounter [place] [facility] [place] [address] Portia Domingo Encounter for screening mammogram for malignant neoplasm of breast Discharge Disposition: Home or Self Care 10/08/2019 Travel 10/05/2019 Travel 10/27/2018 9:10 AM EDT - 10/27/2018 11:59 PM EDT Hospital Encounter [place] [facility] [place] [place] [address] Portia Domingo Encounter for screening mammogram for malignant neoplasm of breast Discharge Disposition: Home or Self Care 06/30/2018 12:30 PM EDT Office Visit [facility] [place] [address] [facility] [address] [place] [address] Dread Uribe MD Tinnitus of both ears (Primary Dx); Abnormal auditory perception of both ears; Sensorineural hearing loss (SNHL) of both ears 06/09/2018 9:03 AM EDT - 06/09/2018 11:59 PM EDT Hospital Encounter [facility] [address] [facility] [place] [address] [place] Osteopenia, unspecified location; Post-menopausal Discharge Disposition: Home or Self Care 11/08/2017 10:08 AM EDT - 11/08/2017 11:59 PM EDT Hospital Encounter [facility] [address] [place] [address] [place] Breast density Discharge Disposition: Home or Self Care 11/01/2017 Telephone [facility] [address] [place] [address] Janeth Aponte, Clerical Staff Abnormal Radiology 10/28/2017 8:43 AM EDT - 10/28/2017 11:59 PM EDT Hospital Encounter [facility] Other Location View online schedule for mobile van location [phone] [place] Encounter for screening for malignant neoplasm of breast Discharge Disposition: Home or Self Care 08/27/2016 9:19 AM EDT - 08/27/2016 11:59 PM EDT Hospital Encounter [facility] Other Location View online schedule for mobile van location [phone] [place] Visit for screening mammogram Discharge Disposition: Home or Self Care 08/29/2015 8:18 AM EDT - 08/29/2015 11:59 PM EDT Hospital Encounter [facility] Other Location View online schedule for mobile van location [phone] [place] Visit for screening mammogram Discharge Disposition: Home or Self Care 07/01/2015 9:30 AM EDT - 07/01/2015 11:59 PM EDT Hospital Encounter [facility] [address] [place] [address] Tin Short MD Traumatic subdural hemorrhage without loss of consciousness without open intracranial wound, subsequent encounter Discharge Disposition: Home or Self Care 05/30/2015 7:47 PM EST - 05/30/2015 11:59 PM EST Hospital Encounter [facility] [address] [place] [address] Tin Short MD Subdural hematoma, acute (HCC) Discharge Disposition: Home or Self Care 05/16/2015 9:35 AM EST - 05/18/2015 1:47 PM EST Hospital Encounter [facility] 2B1 NEUROSCIENCE [facility] [address] [place] [address] Jesisca Keys MD Zowtiak, Arias Pérez MD Subdural hematoma (HCC) (Primary Dx); Hematuria; Subdural hematoma, acute (HCC) Discharge Disposition: Home or Self Care 02/06/2015 9:45 AM EST Procedure visit [facility] [address] [place] [address] Sachin Gaytan, KATHY Dermatophytosis of nail (Primary Dx); Dystrophia unguium; Toe pain, bilateral 2014 Telephone [facility] [address] [facility] [address] [place] [address] Sachin Gaytan, KATHY Visit Follow Up 2014 9:30 AM EDT Procedure visit [facility] [address] [facility] [address] [place] [address] Sachin Gaytan, KATHY Dermatophytosis of nail (Primary Dx); Pain of toe, unspecified laterality 10/21/2014 1:29 PM EDT - 10/21/2014 11:59 PM EDT Hospital Encounter [place] [facility] [address] [place] [address] Portia Domingo Decreased bone density Discharge Disposition: Home or Self Care 09/02/2014 9:34 AM EDT - 09/02/2014 11:59 PM EDT Hospital Encounter [facility] Other Location View online schedule for mobile van location [phone] [place] Other screening mammogram Discharge Disposition: Home or Self Care 08/14/2014 9:45 AM EDT Procedure visit [facility] [address] [facility] [address] [place] [address] Sachin Gaytan, KATHY Dermatophytosis of nail (Primary Dx); Pain of toe, unspecified laterality 05/30/2014 9:15 AM EDT Procedure visit [facility] [address] [place] [address] Sachin Gaytan, KATYH Dermatophytosis of nail (Primary Dx); Pain in limb 03/01/2014 9:30 AM EST Procedure visit [facility] [place] [address] [place] [address] Sachin Gaytan, DPDuy Dermatophytosis of nail (Primary Dx); Pain in limb 12/21/2013 9:15 AM EDT Procedure visit [facility] [place] [address] [place] [address] Sachin Gaytan, DPM Dermatophytosis of nail (Primary Dx); Pain in limb 09/03/2013 5:53 AM EDT - 09/03/2013 11:59 PM EDT Hospital Encounter [facility] Other Location View online schedule for mobile van location [phone] [place] Other screening mammogram Discharge Disposition: Home or Self Care 06/09/2012 9:16 PM EDT - 06/09/2012 10:22 PM EDT Emergency [facility] [place] [address] Simon Smallwood MD Swelling of left knee joint (Primary Dx); Left knee pain Discharge Disposition: Home or Self Care 05/20/2012 6:04 PM EST - 05/20/2012 7:06 PM EST Emergency [facility] [address] [facility] [place] [address] Uriel Spaulding MD Knee sprain and strain (Primary Dx) Discharge Disposition: Home or Self Care 12/19/2010 8:58 PM EDT - 12/19/2010 10:33 PM EDT Emergency [facility] [address] [facility] [place] [address] Bolivar Angel MD Abrasions of multiple sites; Fracture of metacarpal base of right hand, closed Discharge Disposition: Home or Self Care 08/10/2010 2:06 PM EDT - 08/10/2010 11:59 PM EDT Hospital Encounter [facility] [place] [address] Portia Domingo Other screening mammogram Discharge Disposition: Home or Self Care 07/30/2009 12:01 AM EDT - 07/30/2009 11:59 PM EDT Hospital Encounter [facility] BREAST HEA CTR [facility] [place] 05/17/2009 12:01 AM EST - 05/17/2009 11:59 PM EST Hospital Encounter [facility] EPIC CON UNK [facility] [place] 01/09/2006 3:59 PM EDT - 01/10/2006 1:00 PM EDT Hospital Encounter [facility] ETCU FTT Generic, Historical Provider 03/30/2005 7:35 AM EST - 03/30/2005 11:59 PM EST Hospital Encounter [facility] LAB EDG Lauren Mercado MD 02/17/2005 12:08 AM EST - 02/17/2005 11:59 PM EST Hospital Encounter [facility] CTR WOM [place] 02/17/2005 12:01 AM EST - 02/17/2005 11:59 PM EST Hospital Encounter [facility] RADIOLOGY [facility] Lauren Mercado MD 03/09/2004 3:16 PM EST - 03/09/2004 11:59 PM EST Hospital Encounter [facility] RADIOLOGY [facility] Daniel Castillo ARNP 02/11/2004 3:44 PM EST - 02/11/2004 11:59 PM EST Hospital Encounter [facility] BREAST HEA CTR EDG Lauren Mercado MD 04/16/2003 5:59 AM EST - 04/16/2003 11:59 PM EST Hospital Encounter [facility] RADIOLOGY ED[facility] Lauern Mercado MD 01/30/2003 12:01 AM EST - 01/30/2003 11:59 PM EST Hospital Encounter [facility] CTR WOPortia Rowe 01/30/2003 6:15 AM EST - 01/30/2003 11:59 PM EST Hospital Encounter [facility] RADIOLOGY ED[facility] [place] 02/28/2001 Hospital Encounter [facility] UNKNFTT Generic, Historical Provider 09/07/2000 Hospital Encounter [facility] UNKNFTT Generic, Historical Provider 02/14/2000 1:34 PM EST - 02/14/2000 3:00 PM EST Emergency [facility] UNKNFTT Generic, Historical Provider 01/27/2000 Hospital Encounter [facility] UNKNFTT Generic, Historical Provider 01/14/1999 2:50 PM EDT - 01/14/1999 11:59 PM EDT Hospital Encounter [facility] CTR WOM WEL [facility] Generic, Historical Provider Allergies No known active allergies Medications I-KACIE/OCUVITE Oral Tablet Take by mouth 2 times daily. Active aspirin 81 mg Oral Tablet, Delayed Release (E.C.) Take 81 mg by mouth every other day. Active fish oil OTC (OMEGA-3 DHA-EPA 300 MG) 300-1,000 mg Oral Capsule, Delayed Release(E.C.) Take 1 g by mouth daily. Active lisinopriL-hydr ochlorothiazide (PRINZIDE;ZESTO RETIC) 20-12.5 mg Oral Tablet Take 0.5 Tablets by mouth 2 times daily. 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 CT shows acute interhemispheric fissure subdural hematoma measuring 5.4 mm anteriorly and 5.7 mm posteriorly. Surgical intervention recommenced at 10 mm > 5 mm MLS and or status change. Neurosurg with no interventions at this time. Fall 05/16/2015 Hematuria 05/16/2015 Pain in limb 12/21/2013 Immunizations Immunization Administration Dates Next Due DT 12/19/2010 Family History Medical History Relation Name Comments Early Father Macular Degen Mother Anesth Problems Neg Hx Relation Name Status Comments Father Mother Social History Smoking Status as of 09/26/2024 Tobacco Use Types Packs/Day Years Used Date Smoking Tobacco: Never Assessed Overall Financial Resource Strain (CARDIA) Answe r Date Recorded How hard is it for you to pa y for the very basics like food, housing, medical care, and heating? Not very hard 08/25/2021 Hunger Vital Sign Answer Date Recorded Within the past 12 months, y ou worried that your food would run out before you got the money to buy more. Never true 08/26/19 22 Within the past 12 months, t he food you bought just didn't last and you didn't have money to get more. Never true 08/25/2021 PRAPARE - Transportation Answer Date Re corded In the past 12 months, has l ack of transportation kept you from medical appointments or from getting medications? No 09/2021 In the past 12 months, has l ack of transportation kept you from meetings, work, or from getting things needed for daily living? No 08/25/2021 Sex and Gender Information Value Date Recorded Sex Assigned at Not on file Legal Sex Female 3:57 PM EDT Gender Identity Not on file Sexual Orientation Not on file Last Filed Vital Signs Vital Sign Reading Time Taken Comments Blood Pressure 110/81 02/22/2024 10:33 AM EST Pulse 75 02/22/2024 10:14 AM EST Temperature 36.8 C (98.3 F) 02/22/2024 10:33 AM EST Respiratory Rate 18 02/22/2024 10:14 AM EST Oxygen Saturation 99% 02/22/2024 10:14 AM EST Inhaled Oxygen Concentration - - Weight 83 kg (183 lb) 04/06/2024 4:08 PM EST Height 165.1 cm (5' 5 ) 04/06/2024 4:08 PM EST Body Mass Index 30.45 04/06/2024 4:08 PM EST Plan of Treatment Upcoming Encounters Date Type Department Care Team (Late st Contact Info) Description 10/05/2024 9:00 AM EDT Appointment [place] [address] [place] [address] Manjula Vyas MD [address] [facility] [place] [address] 10/08/2024 8:30 AM EDT Appointment [place] [address] [place] [address] 10/08/2024 9:00 AM EDT Appointment [place] [address] [place] [address] Manjula Vyas MD [address] [facility] [address] [place], [place] [id number] 10/12/2024 9:45 AM EDT Office Visit [facility] [address] [place] [address] Fitz Rocha PA-C [address] [place] [address] Medical Devices Implanted Type Area Guide Tour Device Identifier Shelf Expiration Date Model / Serial / Lot Port Shar Ti Vortex 8fr W/Attachable Bioflo Cath-08/27/2020 Implanted:Qty: 1 on 08/27/2020 by Yvon Acosta MD [employer] [id number] 80ST [id number] / / [id number] Lens Intraocular + 21.5 Diopter Clareon Toric [id number] - [id number] Implanted:Qty: 1 on 01/26/2023 by Stevan Garcia MD at [facility] Right: Eye [facility]:SURG [id number] 08/15/2025 CNW0T3.215 / [id number] / Lens Intraocular 20.5 Diopter Clareon Toric Aspheric Hydroph - [id number] Implanted:Qty: 1 on 02/04/2023 by Stevan Garcia MD at [facility] Left: Eye [employer] [facility] [id number] 07/28/2026 CNW0T3.205 / [id number] / Procedures Procedure Name Priority Date/Time Associated Diagnosis Comments MN ARTHROCENTESIS ASPIR&/INJ MAJOR JT/BURSA W/O US Routine 07/13/2024 10:30 AM EDT Knee strain, left, initial encounter Primary osteoarthritis of left knee MN ARTHROCENTESIS ASPIR&/INJ MAJOR JT/BURSA W/O US Routine 04/06/2024 4:15 PM EST Knee strain, left, initial encounter Complex tear of medial meniscus of left knee as current injury, initial encounter Primary osteoarthritis of left knee MRI KNEE LEFT WO CONTRAST STAT 02/24/2024 2:35 PM EST Chambers cyst, left Knee strain, left, initial encounter XR KNEE LEFT AP LAT INT EXT OBLIQUES AND SUNRISE ALTAGRACIA 02/22/2024 10:57 AM EST CBC WITH DIFF STAT 01/09/2024 8:11 AM EDT History of diffuse large B-cell lymphoma COMPREHENSIVE METABOLIC PANEL STAT 01/09/2024 8:11 AM EDT History of diffuse large B-cell lymphoma LACTATE DEHYDROGENASE STAT 01/09/2024 8:11 AM EDT History of diffuse large B-cell lymphoma CT CHEST WO CONTRAST Routine 01/06/2024 7:59 AM EDT Ground glass opacity present on imaging of lung MM MAMMO DIGITAL TOM SCREEN BILAT Routine 10/21/2023 8:32 AM EDT Encounter for screening mammogram for high-risk patient LACTATE DEHYDROGENASE STAT 10/10/2023 8:45 AM EDT History of diffuse large B-cell lymphoma COMPREHENSIVE METABOLIC PANEL STAT 10/10/2023 8:45 AM EDT History of diffuse large B-cell lymphoma CBC WITH DIFF STAT 10/10/2023 8:45 AM EDT History of diffuse large B-cell lymphoma CT CHEST ABDOMEN PELVIS WO ORAL WITH IV CONTRAST Routine 10/07/2023 9:25 AM EDT History of diffuse large B-cell lymphoma Pelvic mass CREATININE ISTAT Routine 10/07/2023 9:18 AM EDT LACTATE DEHYDROGENASE STAT 04/11/2023 8:40 AM EST History of diffuse large B-cell lymphoma CBC WITH DIFF STAT 04/11/2023 8:40 AM EST History of diffuse large B-cell lymphoma COMPREHENSIVE METABOLIC PANEL STAT 04/11/2023 8:40 AM EST History of diffuse large B-cell lymphoma INTRAOP AIRWAY PLACEMENT Routine 02/04/2023 9:55 AM EST CATARACT EXTRACTION WITH PHACOEMULSIFICATION AND INTRAOCULAR LENS 02/04/2023 9:48 AM EST Nuclear sclerotic cataract of left eye Regular astigmatism of left eye Special Needs MAC/TOPCIAL, CNW0TX INTRAOP AIRWAY PLACEMENT Routine 01/26/2023 9:48 AM EST CATARACT EXTRACTION WITH PHACOEMULSIFICATION AND INTRAOCULAR LENS 01/26/2023 9:44 AM EST Nuclear sclerotic cataract of right eye Regular astigmatism of right eye Special Needs MAC/TOPICAL, CNW0T3 +21.50sk MM MAMMO DIGITAL TOM SCREEN BILAT Routine 10/22/2022 8:34 AM EDT Encounter for screening mammogram for malignant neoplasm of breast CT CHEST ABDOMEN PELVIS W CONTRAST Routine 10/08/2022 9:27 AM EDT History of diffuse large B-cell lymphoma LACTATE DEHYDROGENASE STAT 10/08/2022 8:54 AM EDT History of diffuse large B-cell lymphoma History of chemotherapy COMPREHENSIVE METABOLIC PANEL STAT 10/08/2022 8:54 AM EDT History of diffuse large B-cell lymphoma History of chemotherapy CBC WITH DIFF STAT 10/08/2022 8:54 AM EDT History of diffuse large B-cell lymphoma History of chemotherapy LACTATE DEHYDROGENASE STAT 04/12/2022 1:24 PM EST 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) COMPREHENSIVE METABOLIC PANEL STAT 04/12/2022 1:24 PM EST 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) CBC WITH DIFF STAT 04/12/2022 1:24 PM EST 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) CT CHEST ABDOMEN PELVIS W CONTRAST Routine 04/09/2022 9:34 AM EST History of diffuse large B-cell lymphoma CREATININE ISTAT Routine 04/09/2022 9:21 AM EST MM MAMMO DIGITAL TOM SCREEN BILAT Routine 10/23/2021 8:12 AM EDT Screening mammogram for high-risk patient LACTATE DEHYDROGENASE ALTAGRACIA 10/12/2021 12:36 PM EDT History of diffuse large B-cell lymphoma COMPREHENSIVE METABOLIC PANEL ALTAGRACIA 10/12/2021 12:36 PM EDT History of diffuse large B-cell lymphoma CBC WITH DIFF ALTAGRACIA 10/12/2021 12:36 PM EDT History of diffuse large B-cell lymphoma CT CHEST ABDOMEN PELVIS W CONTRAST Routine 10/09/2021 9:41 AM EDT History of diffuse large B-cell lymphoma CREATININE ISTAT Routine 10/09/2021 9:33 AM EDT CBC Early AM 08/26/2021 6:07 AM EDT COMPREHENSIVE METABOLIC PANEL Early AM 08/26/2021 6:07 AM EDT ADMIT Routine 08/25/2021 12:32 AM EDT ADMIT STAT 08/24/2021 8:15 PM EDT URINALYSIS STAT 08/24/2021 8:13 PM EDT CORONAVIRUS 2019 Routine 08/24/2021 8:13 PM EDT EXTRA LARSEN URINE CX STAT 08/24/2021 8:[address] ABD PEL ED FAST W CONTRAST STAT 08/24/2021 6:27 PM EDT LACTIC ACID STAT 08/24/2021 5:04 PM EDT LIPASE LEVEL STAT 08/24/2021 5:04 PM EDT COMPREHENSIVE METABOLIC PANEL STAT 08/24/2021 5:04 PM EDT CBC WITH DIFF STAT 08/24/2021 5:04 PM EDT LACTATE DEHYDROGENASE ALTAGRACIA 07/13/2021 1:36 PM EDT Anticoagulation management encounter Chemotherapy follow-up examination COMPREHENSIVE METABOLIC PANEL ALTAGRACIA 07/13/2021 1:36 PM EDT Anticoagulation management encounter Chemotherapy follow-up examination CBC WITH DIFF ALTAGRACIA 07/13/2021 1:36 PM EDT Anticoagulation management encounter Chemotherapy follow-up examination COMPREHENSIVE METABOLIC PANEL STAT 04/13/2021 11:11 AM EST Diffuse large B-cell lymphoma of intra-abdominal lymph nodes (HCC) Encounter for chemotherapy management CBC WITH DIFF STAT 04/13/2021 11:11 AM EST Diffuse large B-cell lymphoma of intra-abdominal lymph nodes (HCC) Encounter for chemotherapy management CT ABDOMEN PELVIS W CONTRAST Routine 04/10/2021 9:31 AM EST Diffuse large B-cell lymphoma of intra-abdominal lymph nodes (HCC) CREATININE ISTAT Routine 04/10/2021 9:27 AM EST LACTATE DEHYDROGENASE STAT 01/12/2021 11:09 AM EDT Diffuse large B-cell lymphoma of intra-abdominal lymph nodes (HCC) Encounter for chemotherapy management COMPREHENSIVE METABOLIC PANEL STAT 01/12/2021 11:09 AM EDT Diffuse large B-cell lymphoma of intra-abdominal lymph nodes (HCC) Encounter for chemotherapy management CBC WITH DIFF STAT 01/12/2021 11:09 AM EDT Diffuse large B-cell lymphoma of intra-abdominal lymph nodes (HCC) Encounter for chemotherapy management PET CT SKULL BASE TO MID THIGH Routine 01/09/2021 10:47 AM EDT Diffuse large B-cell lymphoma of intra-abdominal lymph nodes (HCC) GLUCOSE METER POC Routine 01/09/2021 9:18 AM EDT COMPREHENSIVE METABOLIC PANEL STAT 12/17/2020 9:13 AM EDT Diffuse large B-cell lymphoma of intra-abdominal lymph nodes (HCC) CBC WITH DIFF STAT 12/17/2020 9:13 AM EDT Diffuse large B-cell lymphoma of intra-abdominal lymph nodes (HCC) COMPREHENSIVE METABOLIC PANEL STAT 11/26/2020 9:19 AM EDT Diffuse large B-cell lymphoma of intra-abdominal lymph nodes (HCC) CBC WITH DIFF STAT 11/26/2020 9:19 AM EDT Diffuse large B-cell lymphoma of intra-abdominal lymph nodes (HCC) MM MAMMO DIGITAL TOM SCREEN BILAT Routine 11/25/2020 8:46 AM EDT Encounter for screening mammogram for malignant neoplasm of breast CBC WITH DIFF STAT 11/03/2020 8:39 AM EDT Diffuse large B-cell lymphoma of intra-abdominal lymph nodes (HCC) COMPREHENSIVE METABOLIC PANEL STAT 11/03/2020 8:36 AM EDT Diffuse large B-cell lymphoma of intra-abdominal lymph nodes (HCC) PET CT SKULL BASE TO MID THIGH Routine 10/30/2020 11:16 AM EDT Diffuse large B-cell lymphoma of intra-abdominal lymph nodes (HCC) GLUCOSE METER POC Routine 10/30/2020 10:12 AM EDT COMPREHENSIVE METABOLIC PANEL STAT 10/13/2020 9:21 AM EDT Diffuse large B-cell lymphoma of intra-abdominal lymph nodes (HCC) CBC WITH DIFF STAT 10/13/2020 9:21 AM EDT Diffuse large B-cell lymphoma of intra-abdominal lymph nodes (HCC) CBC WITH DIFF STAT 09/29/2020 11:57 AM EDT Acute deep vein thrombosis (DVT) of right peroneal vein (HCC) Diffuse large B-cell lymphoma of intra-abdominal lymph nodes (HCC) BASIC METABOLIC PANEL STAT 09/29/2020 11:57 AM EDT Acute deep vein thrombosis (DVT) of right peroneal vein (HCC) Diffuse large B-cell lymphoma of intra-abdominal lymph nodes (HCC) VA US LOWER EXTREMITY VENOUS RIGHT STAT 09/22/2020 4:53 PM EDT Right leg pain Diffuse large B-cell lymphoma of intra-abdominal lymph nodes (HCC) CBC WITH DIFF STAT 09/22/2020 8:13 AM EDT Diffuse large B-cell lymphoma of intra-abdominal lymph nodes (HCC) URIC ACID STAT 09/22/2020 8:12 AM EDT Diffuse large B-cell lymphoma of intra-abdominal lymph nodes (HCC) LACTATE DEHYDROGENASE STAT 09/22/2020 8:12 AM EDT Diffuse large B-cell lymphoma of intra-abdominal lymph nodes (HCC) COMPREHENSIVE METABOLIC PANEL STAT 09/22/2020 8:12 AM EDT Diffuse large B-cell lymphoma of intra-abdominal lymph nodes (HCC) COMPREHENSIVE METABOLIC PANEL STAT 09/05/2020 12:45 PM EDT Diffuse large B-cell lymphoma of intra-abdominal lymph nodes (HCC) CBC WITH DIFF STAT 09/05/2020 12:45 PM EDT Diffuse large B-cell lymphoma of intra-abdominal lymph nodes (HCC) HEPATITIS B SURFACE ANTIGEN Routine 08/29/2020 8:29 AM EDT Diffuse large B-cell lymphoma of intra-abdominal lymph nodes (HCC) HEPATITIS B VIRUS CORE ANTIBODIES, TOTAL -REF LAB Routine 08/29/2020 8:29 AM EDT Diffuse large B-cell lymphoma of intra-abdominal lymph nodes (HCC) URIC ACID STAT 08/29/2020 8:29 AM EDT Diffuse large B-cell lymphoma of intra-abdominal lymph nodes (HCC) LACTATE DEHYDROGENASE STAT 08/29/2020 8:29 AM EDT Diffuse large B-cell lymphoma of intra-abdominal lymph nodes (HCC) PHOSPHORUS LEVEL STAT 08/29/2020 8:29 AM EDT Diffuse large B-cell lymphoma of intra-abdominal lymph nodes (HCC) COMPREHENSIVE METABOLIC PANEL STAT 08/29/2020 8:29 AM EDT Diffuse large B-cell lymphoma of intra-abdominal lymph nodes (HCC) CBC WITH DIFF STAT 08/29/2020 8:29 AM EDT Diffuse large B-cell lymphoma of intra-abdominal lymph nodes (HCC) PET CT SKULL BASE TO MID THIGH Routine 08/28/2020 11:22 AM EDT Diffuse large B-cell lymphoma of intra-abdominal lymph nodes (HCC) GLUCOSE METER POC Routine 08/28/2020 10:06 AM EDT EC ECHOCARDIOGRAM COMPLETE W DOPPLER AND COLOR FLOW MAPPING Routine 08/28/2020 9:49 AM EDT Diffuse large B-cell lymphoma of intra-abdominal lymph nodes (HCC) Encounter for monitoring cardiotoxic drug therapy IR ULTRASOUND GUIDED VASCULAR ACCESS Routine 08/27/2020 11:42 AM EDT Diffuse large B-cell lymphoma of intra-abdominal lymph nodes (HCC) IR PORT PLACEMENT EQUAL OR > 5 YEARS Routine 08/27/2020 11:42 AM EDT Diffuse large B-cell lymphoma of intra-abdominal lymph nodes (HCC) CBC WITH DIFF Routine 08/26/2020 10:19 AM EDT Diffuse large B-cell lymphoma, unspecified body region (HCC) PT / INR Routine 08/26/2020 10:19 AM EDT Diffuse large B-cell lymphoma, unspecified body region (HCC) CORONAVIRUS 2019 Routine 08/26/2020 9:33 AM EDT Pre-op testing Encounter for laboratory testing for COVID-19 virus BASIC METABOLIC PANEL STAT 08/19/2020 1:[address] NEEDLE BIOPSY LYMPH NODE ALTAGRACIA 08/19/2020 11:19 AM EDT NEOGENOMICS HIGH-GRADE/LARGE B-CELL LYMPHOMA FISH Routine 08/19/2020 10:46 AM EDT NEOGENOMICS T&B TISSUE PANEL Routine 08/19/2020 10:46 AM EDT PATHOLOGY TISSUE REQUEST Routine 08/19/2020 10:46 AM EDT BASIC METABOLIC PANEL Early AM 08/18/2020 6:36 AM EDT BASIC METABOLIC PANEL Early AM 08/17/2020 7:59 AM EDT BASIC METABOLIC PANEL Early AM 08/16/2020 10:08 AM EDT PARATHYROID HORMONE-RELATED PEPTIDE BY LC-MS/MS-REF LAB Routine 08/15/2020 11:00 AM EDT PARATHYROID HORMONE INTACT Routine 08/15/2020 11:00 AM EDT IP CONSULT TO INTERVENTIONAL RADIOLOGY Routine 08/15/2020 2:11 AM EDT Procedure Note - Leana Recinos PA-C - 08/15/2020 10:31 AM EDTThis note is in progress. Images from the original note were not included. INTERVENTIONAL RADIOLOGY CONSULT Date: 08/15/2020 Time: 10:31 AM Name:Barbara Evans :1935 Age:84 y.o. M/F: female Attending Provider: David Zimmer DO Primary Care Physician: Portia Domingo CC: lower back pain, abnormal CT HPI: 84 y.o. year old female with history of Active Hospital Problems Diagnosis *Retroperitoneal mass Hypercalcemia CROW (acute kidney injury) (HCC) Barbara Evans is a 84 y.o. female with no known medical history.Patient was sent to the emergency room by her PCP because of abnormal CTscan of the abdomen showing a retroperitoneal mass. Patient reports thatshe has been having lower back and mild abdominal discomfort for quitesome times but over the past 2 weeks she has been having increased painlocated mainly in the lower back. Patient reports that the pain is worsewhen she lays down and somewhat relieved upon standing up. She rated thepain as 8/10 with no radiation. She reports Aleve give her some reliefbut the pain would recurs after the medication wears off. Given thepersistence of the pain, she went to her PCP where she had a CT scan ofthe abdomen done which showed a large retroperitoneal mass with othermass/adenopathy in the left upper quadrant adjacent to the pancreasconcerning for lymphoma therefore patient was sent to the emergency roomfor evaluation. Further work-up in the ED shows significant hypercalcemiawith calcium of 13. Decision was then made to admit her to the hospitalfor further evaluation. We are being asked to consider retroperitoneal mass biopsy. FMH: Family History Family history unknown: Yes Social HX: Social History Socioeconomic History Marital status: Spouse name: None Number of children: None Years of education: None Highest education level: None Tobacco Use Smoking status: Never Smoker Smokeless tobacco: Never Used Substance and Sexual Activity Alcohol use: No Drug use: No PMH: History reviewed. No pertinent past medical history. PSxHx: Past Surgical History: Procedure Laterality Date COLONOSCOPY 02/05/03 Allergies: Allergies as of 08/14/2020 (No Known Allergies) Meds: Current Facility-Administered Medications: 0.9 % NaCl infusion, , Intravenous, Continuous, Leonardo Rascon MD allopurinoL (ZYLOPRIM) tablet 300 mg, 300 mg, Oral, Daily, Eladia Cunningham APRN fUROsemide (LASix) injection 20 mg, 20 mg, Intravenous, Daily, Leonardo Rascon MD morphine injection 2 mg, 2 mg, Intravenous, Q4H PRN OR morphineinjection 4 mg, 4 mg, Intravenous, Q4H PRN, Meño Rangel MD sodium chloride 0.9% IV line flush 50 mL, 50 mL, Intravenous, PRN,Meño Rangel MD sodium chloride 0.9% syringe 5-10 mL, 5-10 mL, Intravenous, PRN,Meño Rangel MD Vitals: 08/15/20 0902 BP: 142/83 Pulse: 62 Resp: 16 Temp: 98.2 F (36.8 C) SpO2: 96% Labs: Lab Results Component Value Date CREATININE 1.55 (H) 08/14/2020 BUN 41 (H) 08/14/2020 NA 137 08/14/2020 K 3.7 08/14/2020 CL 98 08/14/2020 CO2 30 (H) 08/14/2020 Lab Results Component Value Date WBC 6.8 08/14/2020 HGB 14.4 08/14/2020 HCT 43.3 08/14/2020 MCV 88.2 08/14/2020 PLT 108 (L) 08/14/2020 Imaging: CT ABDOMEN AND PELVIS WITH CONTRAST, 08/14/2020 9:48 PM CLINICAL HISTORY: -mass on non-con CT COMPARISON: Abdomen pelvis CT from earlier today. PROCEDURE COMMENTS: Multi-detector volumetric scanning of the abdomenand pelvis with multiplanar reformatting. 100 mL Isovue 370 IV contrast givenalong with radiodense GI contrast. FINDINGS: LOWER THORAX: Lung bases unremarkable. ABDOMEN AND PELVIS: There is infiltrative mass lesion. The lateralanterior aspect of the abdominal aorta at the level of the SMA and renal arteries,which measures 12 cm in transverse dimension, approximately 6.1 cm in APdimension. Separately, there is again infiltrative mass lesion involving the leftrenal hilum, closely associated with the pancreatic tail and body, extendingalong the posterior aspect of the stomach, which measures 12 cm in transversedimension and approximately 9 cm in AP dimension. 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 The splenic artery appears patent. There is likely softtissue extension into the anterior aspect the spleen adjacent to the splenichilum. The mass obscuring there are the pancreatic body and tail. There is trace quantity ascites in the pelvis and the right upperquadrant. High attenuation 6.9 cm mass within the uterus likely represents a fibroid is unchanged from the April 2015 comparison. 18 mm cyst right hepatic lobe. No other focal hepatic lesion.Cholelithiasis is noted. Adrenal glands, kidneys are normal. No hydroureteronephrosis.Urinary bladder is decompressed and within normal limits. There are no dilated loops of bowel. Appendix is normal. No free air.Scattered sigmoid diverticula without diverticulitis. No destructive osseous lesion. IMPRESSION: 1. Infiltrative retroperitoneal soft tissue mass closely associated withthe abdominal aorta. There is adjacent, separate infiltrative soft tissuemass lesion centered in the splenic hilum, with extension along the posterioraspect of the stomach, obscuring the pancreatic body and tail. Lymphoma isleading differential consideration. 2. Other incidental findings as above. Assessment/Plan: Active Hospital Problems Diagnosis *Retroperitoneal mass Hypercalcemia CROW (acute kidney injury) (HCC) -81 mg ASA must be held x 5 day for biopsy. Earliest procedure can beperformed is 08/19/20. -Patient is COVID vaccinated so will not need pre-procedure COVID test. -npo p MN orders will be placed for 08/19/20. -If patient is discharged home over weekend, biopsy can be pursued as OP. Signature: Leana Recinos PA-C IP CONSULT TO MEDICAL ONCOLOGY & HEMATOLOGY Routine 08/15/2020 2:11 AM EDT Procedure Note - Manjula Vyas MD - 08/15/2020 2:31 PM EDTThis note is in progress. Images from the original note were not included. HEMATOLOGY/ONCOLOGY CONSULT NOTE Primary Care Physician: Portia Domingo Date of Admission: 08/14/2020 Requesting Attending: Dr. Rangel Reason for Consult: Hypercalcemia, RP Mass HISTORY OF PRESENT ILLNESS: Pt is a 84 y.o. year old who was admitted for Chief Complaint Patient presents with Back Pain Told to come to the ED for additional testing after [facility]. (was told there was a mass and she needed more tests) Abnormal Radiology Presented w/ 4 or so weeks of progressive abd pain that radiates to back,is worse w/ lying down and fatigue. No N/V, F/C, weight loss or bowelchanges. + progressive fatigue. CT showed large RP mass and noted tohave hypercalcemia on blood work. No REVIEW OF SYSTEMS: Constitutional: No fevers, no chills, no weight loss, no night sweats, +fatigue HEENT: No sore throat, no dysphagia, no odynophagia, no mouth sores, nosinus pressure Lymph: No cervical, supraclavicular, axillary adenopathy Cardiovascular: No chest pain, no palpitations, no orthopnea, no edema Pulmonary: No cough, no hemoptysis, no shortness of breath Abdominal: No nausea, no vomiting, no diarrhea, no constipation, nomelena, + abdominal pain radiating to back : No dysuria, no flank pain MSK: No joint pain, no back pain, no joint swelling Neuro: No headaches, no focal weakness, no seizures, no neuropathy Psych: No depression, no anxiety Skin: No rashes, no pruritis HISTORY: History reviewed. No pertinent past medical history. Past Surgical History: Procedure Laterality Date COLONOSCOPY 02/05/03 Family History Family history unknown: Yes Social History Tobacco Use Smoking Status Never Smoker Smokeless Tobacco Never Used Social History Substance and Sexual Activity Alcohol Use No No Known Allergies PHYSICAL EXAM: Vitals: 08/15/20 1645 BP: 144/82 Pulse: 77 Resp: 16 Temp: 98.9 F (37.2 C) SpO2: 96% Wt Readings from Last 3 Encounters: 08/15/20 182 lb (82.6 kg) 08/14/20 182 lb (82.6 kg) 06/30/18 199 lb (90.3 kg) GEN: A/O x 3, slt drowsy HEENT: EOMI Lymph: No cervical, supraclavicular LAD Cardiovascular: RRR Pulmonary: No resp distress Abdominal: Soft, no masses noted MSK: No edema Neuro: PERRLA Psych: No anxiety, normal affect Skin: No rashes MEDICAL DATA REVIEW: Medications, Allergies, Laboratories, Images, Path reviewed Ct Abdomen Pelvis W Contrast Result Date: 08/14/2020 1. Infiltrative retroperitoneal soft tissue mass closely associated withthe abdominal aorta. There is adjacent, separate infiltrative soft tissuemass lesion centered in the splenic hilum, with extension along theposterior aspect of the stomach, obscuring the pancreatic body and tail.Lymphoma is leading differential consideration. SCr: 1.55 Ca: 13.4 UA: 9.6 LDH: 252 Plts: 108 ASSESSMENT & PLAN Present on Admission: None RP Mass - Radiographically concerning for a lymphoma. Will need tocomplete staging w/ PET/CT as an outpt. Bx planned for Tuesday (holding). Hypercalcemia - Low PTH. 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 IVFtoday, likely Aredia/zometa tomorrow. ARF - IVF TCP - Mild, OK for Bx. Suspect related to the above. Manjula Vyas MD Hematology/Oncology ADMIT STAT 08/15/2020 12:[address] ABDOMEN PELVIS W CONTRAST Routine 08/14/2020 9:48 PM EDT PT / INR STAT 08/14/2020 8:06 PM EDT LIPASE LEVEL STAT 08/14/2020 8:06 PM EDT COMPREHENSIVE METABOLIC PANEL STAT 08/14/2020 8:06 PM EDT CBC STAT 08/14/2020 8:06 PM EDT SALINE LOCK IV STAT 08/14/2020 7:[address] ABDOMEN PELVIS WITH ORAL WO IV CONTRAST STAT 08/14/2020 4:06 PM EDT Generalized abdominal pain URIC ACID Add-On 08/14/2020 1:37 PM EDT LACTATE DEHYDROGENASE Add-On 08/14/2020 1:37 PM EDT LIPASE LEVEL STAT 08/14/2020 1:37 PM EDT Generalized abdominal pain CBC WITH DIFF STAT 08/14/2020 1:37 PM EDT Generalized abdominal pain COMPREHENSIVE METABOLIC PANEL STAT 08/14/2020 1:37 PM EDT Generalized abdominal pain URINE CULTURE (NO STAIN) Routine 08/14/2020 1:03 PM EDT Back pain, unspecified back location, unspecified back pain laterality, unspecified chronicity Generalized abdominal pain SEP URINALYSIS POC Routine 08/14/2020 12:38 PM EDT Back pain, unspecified back location, unspecified back pain laterality, unspecified chronicity XR LUMBAR SPINE AP AND LATERAL Routine 07/30/2020 3:11 PM EDT Acute back pain with sciatica, left XR THORACIC SPINE AP LATERAL AND SWIMMERS Routine 07/30/2020 3:11 PM EDT Acute back pain with sciatica, right MM MAMMO DIGITAL TOM SCREEN BILAT Routine 11/27/2019 11:24 AM EDT Encounter for screening mammogram for malignant neoplasm of breast MM MAMMO DIGITAL SCREENING W CAD BILAT Routine 10/27/2018 9:24 AM EDT Encounter for screening mammogram for malignant neoplasm of breast DX BONE DENSITY AXIAL SKELETON Routine 06/09/2018 10:00 AM EDT Osteopenia, unspecified location Post-menopausal MM US BREAST LIMITED RIGHT Routine 11/08/2017 10:22 AM EDT Breast density MM MOBILE MAMMO DIGITAL SCREEN W CAD ANTHONY Routine 10/28/2017 8:55 AM EDT Encounter for screening for malignant neoplasm of breast MM MOBILE MAMMO DIGITAL SCREEN W CAD ANTHONY Routine 08/27/2016 10:00 AM EDT Visit for screening mammogram MM MOBILE MAMMO DIGITAL SCREEN W CAD ANTHONY Routine 08/29/2015 8:30 AM EDT Visit for screening mammogram CT HEAD WO CONTRAST Routine 07/01/2015 9:45 AM EDT Traumatic subdural hemorrhage without loss of consciousness without open intracranial wound, subsequent encounter CT HEAD WO CONTRAST Routine 05/30/2015 8:16 PM EST Subdural hematoma, acute (HCC) DIFFERENTIAL Early AM 05/18/2015 6:55 AM EST BASIC METABOLIC PANEL Early AM 05/18/2015 6:55 AM EST CBC WITH DIFF Early AM 05/18/2015 6:[address] HEAD WO CONTRAST Routine 05/18/2015 6:25 AM EST DIFFERENTIAL Early AM 05/17/2015 5:41 AM EST BASIC METABOLIC PANEL Early AM 05/17/2015 5:41 AM EST CBC WITH DIFF Early AM 05/17/2015 5:[address] HEAD WO CONTRAST Routine 05/17/2015 5:18 AM EST URINE CULTURE (NO STAIN) Routine 05/16/2015 6:19 PM EST XR HIPS BILATERAL AP LATERAL W AP PELVIS Routine 05/16/2015 5:47 PM EST US RENAL AND BLADDER ALTAGRACIA 05/16/2015 5:[address] ABD PEL ED FAST W CONTRAST STAT 05/16/2015 12:29 PM EST HEMOGLOBIN A1C Routine 05/16/2015 11:09 AM EST THYROID STIMULATING HORMONE Routine 05/16/2015 11:09 AM EST LIPID SCREEN Routine 05/16/2015 11:09 AM EST DIFFERENTIAL STAT 05/16/2015 11:09 AM EST PT / INR STAT 05/16/2015 11:09 AM EST BASIC METABOLIC PANEL STAT 05/16/2015 11:09 AM EST CBC WITH DIFF STAT 05/16/2015 11:[address] HEAD WO CONTRAST STAT 05/16/2015 10:17 AM EST URINALYSIS STAT 05/16/2015 9:50 AM EST DX BONE DENSITY AXIAL INCLUDING VERTEBRAL FRACTURE ASSESSMENT Routine 10/21/2014 2:16 PM EDT Decreased bone density MM MOBILE MAMMO DIGITAL SCREEN W CAD ANTHONY Routine 09/02/2014 9:47 AM EDT Other screening mammogram MM MOBILE MAMMO DIGITAL SCREEN W CAD ANTHONY Routine 09/03/2013 8:40 AM EDT Other screening mammogram D-DIMER STAT 06/09/2012 9:42 PM EDT XR KNEE LEFT AP LAT INT EXT OBLIQUES AND SUNRISE ALTAGRACIA 05/20/2012 6:34 PM EST XR HAND RIGHT PA LATERAL AND OBLIQUE ALTAGRACIA 12/19/2010 9:52 PM EDT MM MAMMO DIGITAL SCREENING W CAD BILAT Routine 08/10/2010 2:29 PM EDT Other screening mammogram SCANNED RADIOLOGY REPORT 01/12/2010 12:00 AM EDT MM DIG SCR ANTHONY PANEL W/CAD Routine 07/30/2009 1:06 PM EDT NM MYOCARDIAL PERFUSION EF ADD Routine 01/10/2006 12:00 AM EDT NM MYOCARDIAL PERFUSION WALL MOTION ADD Routine 01/10/2006 12:00 AM EDT NM MYOCARDIAL PERF MULT SPECT Routine 01/09/2006 12:00 AM EDT DIAG CHEST PA OR AP Routine 01/09/2006 12:00 AM EDT BONE DENSITY CENTRAL Routine 02/17/2005 3:31 PM EST MAMMO SCREEN W/CAD II PANEL Routine 02/17/2005 2:46 PM EST PELVIS/RESIDENTIAL INTERIOR DESIGNER FILING WRITER Routine 02/17/2005 1:25 PM EST Results * MN ARTHROCENTESIS ASPIR&/INJ MAJOR JT/BURSA W/O US (07/13/2024 10:30 AM EDT) Narrative ORTHOCINCY - 07/13/2024 10:30 AM EDT Fitz Rocha PA-C 07/13/2024 11:06 AM Large Joint Injection/Arthrocentesis: L knee on 07/13/2024 10:30 AM Indications: pain and joint swelling Details: 22 G needle, superolateral approach Medications: 2 mL BUPivacaine HCl 0.5 % (5 mg/mL); 40 mg triamcinolone acetonide 40 mg/mL Outcome: tolerated well, no immediate complications Procedure, treatment alternatives, risks and benefits explained, specific risks discussed. Consent was given by the patient. Immediately prior to procedure a time out was called to verify the correct patient, procedure, equipment, cryptologic support specialist and site/side marked as required. Patient was prepped and draped in the usual sterile fashion. Fitz Rocha PA-C PROCEDURE/MINOR SURGICAL ORDE SATHYA Final Result ORTHOHEMANT * MN ARTHROCENTESIS ASPIR&/INJ MAJOR JT/BURSA W/O US (04/06/2024 4:15 PM EST) Narrative ORTHOCINCY - 04/06/2024 4:15 PM EST Fitz Rocha PA-C 04/23/2024 3:52 PM Large Joint Injection/Arthrocentesis: L knee on 04/06/2024 4:15 PM Indications: pain Details: 22 G needle, superolateral approach Medications: 2 mL BUPivacaine HCl 0.5 % (5 mg/mL); 40 mg triamcinolone acetonide 40 mg/mL Outcome: tolerated well, no immediate complications Procedure, treatment alternatives, risks and benefits explained, specific risks discussed. Consent was given by the patient. Immediately prior to procedure a time out was called to verify the correct patient, procedure, equipment, cryptologic support specialist and site/side marked as required. Patient was prepped and draped in the usual sterile fashion. Fitz Rocha PA-C PROCEDURE/MINOR SURGICAL ORDE SATHYA Final Result Performing Organization Address [facility] de Phone Number ORTHOCINCY * MRI KNEE LEFT WO CONTRAST (02/24/2024 2:35 PM EST) Narrative [facility] - 02/24/2024 2:35 PM EST Please see the scanned MRI report associated with this order on the Imaging tab of the patient's chart. Leana Martinez NP IMG MRI ORDERABLES Final Result Performing Organization Address [facility] de Phone Number [facility] * XR KNEE LEFT AP LAT INT EXT OBLIQUES AND SUNRISE (02/22/2024 10:57 AM EST) Only the most recent of2 resultswithin the time period is included. Anatomical Region Laterality Modality Knee Radiographic Susie ging 02/22/2024 10:5 7 AM EST Impressions 02/22/2024 11:23 AM EST No acute abnormality of the knee. - Note: Radiology results need to be interpreted within a comprehensive clinical context. If you have questions about the radiology report, please contact the office of the ordering clinician. Narrative 02/22/2024 11:23 AM EST XR KNEE LEFT AP LAT INT EXT OBLIQUES AND SUNRISE, 02/22/2024 10:57 AM CLINICAL HISTORY: -knee pain COMPARISON: None. PROCEDURE COMMENTS: XR KNEE LEFT AP LAT INT EXT OBLIQUES AND SUNRISE FINDINGS: No evidence of acute fracture or traumatic malalignment. No significant effusion. Mild subchondral cystic change along the patella. Oval ossification adjacent to the medial femoral condyle which may be related to prior injury. Procedure Note Shayy Bartholomew MD - 02/22/2024 XR KNEE LEFT AP LAT INT EXT OBLIQUES AND SUNRISE, 02/22/2024 10:57 AM CLINICAL HISTORY: -knee pain COMPARISON: None. PROCEDURE COMMENTS: XR KNEE LEFT AP LAT INT EXT OBLIQUES AND SUNRISE FINDINGS: No evidence of acute fracture or traumatic malalignment. No significant effusion. Mild subchondral cystic change along the patella. Oval ossificationadjacent to the medial femoral condyle which may be related to prior injury. IMPRESSION: No acute abnormality of the knee. - Note: Radiology results need to be interpreted within a comprehensiveclinical context. If you have questions about the radiology report, please contactthe office of the ordering clinician. [facility] IMG DIAGNOSTIC IMAG ING ORDERABLES Final Result * CBC WITH DIFF (01/09/2024 8:11 AM EDT) Only the most recent of23 resultswithin the time period is included. WBC 7.1 3.7 - 10.3 x10(3)/mcL 01/09/2024 8:18 AM EDT [facility] RBC 4.65 3.90 - 5.20 x10(6)/mcL 01/09/2024 8:18 AM EDT [facility] Hgb 14.3 11.2 - 15.7 g/dL 01/09/2024 8:18 AM EDT [facility] Hct 43.8 34.0 - 45.0 % 01/09/2024 8:18 AM EDT [facility] MCV 94.2 80.0 - 100.0 fL 01/09/2024 8:18 AM EDT [facility] MCH 30.8 26.0 - 34.0 pg 01/09/2024 8:18 AM EDT [facility] MCHC 32.6 30.7 - 35.5 g/dL 01/09/2024 8:18 AM EDT [facility] RDW 13.0 <=14.9 % 01/09/2024 8:18 AM [facility] Platelet 163 155 - 369 x10(3)/mcL 01/09/2024 8:18 AM [facility] MPV 9.3 8.8 - 12.5 fL 01/09/2024 8:18 AM [facility] Neut # Prelim 4.9 1.6 - 6.1 x10(3)/mcL 01/09/2024 8:18 AM [facility] Comment:Preliminary automate d absolute neutrophil count. Value may change if manual differential is indicated. Neut Percent 68.7 % 01/09/2024 8:18 AM [facility] Comment:Neutrophils equals s egs plus bands Imm Gran% 0.1 % 01/09/2024 8:18 AM [facility] Comment:Automated count of m etamyelocytes, myelocytes and promyelocytes. Lymph Percent 22.8 % 01/09/2024 8:18 AM [facility] Mathews Percent 5.7 % 01/09/2024 8:18 AM [facility] Eos Percent 2.3 % 01/09/2024 8:18 AM [facility] Baso Percent 0.4 % 01/09/2024 8:18 AM [facility] Neut # 4.9 1.6 - 6.1 x10(3)/mcL 01/09/2024 8:18 AM [facility] Comment:Neutrophils equals s egs plus bands IMMGRAN# 0.0 0.0 - 0.1 x10(3)/mcL 01/09/2024 8:18 AM [facility] Comment:Automated count of m etamyelocytes, myelocytes and promyelocytes. An absolute IG <0.1 is reported as 0.0. Lymph # 1.6 1.2 - 3.9 x10(3)/mcL 01/09/2024 8:18 AM [facility] Mathews # 0.4 0.3 - 0.9 x10(3)/mcL 01/09/2024 8:18 AM [facility] Eos# 0.2 0.0 - 0.5 x10(3)/mcL 01/09/2024 8:18 AM [facility] Baso # 0.0 0.0 - 0.1 x10(3)/mcL 01/09/2024 8:18 AM EDT [facility] Blood BLOOD SAMPLE TAKEN FROM CENTRAL LINE / Unknown Port / Unknown 01/09/2024 8:11 AM EDT 01/09/2024 8:15 AM EDT Manjula Vyas MD HEMATOLOGY ORDERABLES Final R esult Performing Organization Address [facility] de Phone Number [facility] [address] [place] [address] * LACTATE DEHYDROGENASE (01/09/2024 8:11 AM EDT) Only the most recent of11 resultswithin the time period is included. Pathologist [facility] LDH 184 135 - 214 U/L 01/09/2024 8:34 AM EDT [facility] Blood BLOOD SAMPLE TAKEN FROM CENTRAL LINE / Unknown Port / Unknown 01/09/2024 8:11 AM EDT 01/09/2024 8:15 AM EDT us Manjula Vyas MD CHEMISTRY ORDERABLES Final Re sult Performing Organization Address [facility] de Phone Number [facility] [address] [place] [address] * (ABNORMAL) COMPREHENSIVE METABOLIC PANEL (01/09/2024 8:11 AM EDT) Only the most recent of20 resultswithin the time period is included. Sodium 140 136 - 145 mmol/L 01/09/2024 8:34 AM EDT [facility] Potassium 4.5 3.5 - 5.0 mmol/L 01/09/2024 8:34 AM EDT [facility] Chloride 104 98 - 107 mmol/L 01/09/2024 8:34 AM EDT [facility] Total CO2 26 22 - 29 mmol/L 01/09/2024 8:34 AM EDT [facility] Anion Gap 10 7 - 16 mmol/L 01/09/2024 8:34 AM EDT [facility] Calcium 9.3 8.8 - 10.4 mg/dL 01/09/2024 8:34 AM EDT [facility] Glucose Lvl 92 70 - 99 mg/dL 01/09/2024 8:34 AM EDT [facility] BUN 33(H) 8 - 23 mg/dL 01/09/2024 8:34 AM EDT [facility] Creatinine 1.21 0.51 - 1.30 mg/dL 01/09/2024 8:34 AM EDT [facility] Albumin 3.7 3.2 - 4.6 gm/dL 01/09/2024 8:34 AM EDT [facility] Total Protein 6.7 6.4 - 8.3 gm/dL 01/09/2024 8:34 AM EDT [facility] Bili Total 0.4 0.2 - 1.3 mg/dL 01/09/2024 8:34 AM EDT [facility] ALT 17 <=41 U/L 01/09/2024 8:34 AM T [facility] AST 20 <=40 U/L 01/09/2024 8:34 AM T [facility] Alk Phos 79 36 - 123 U/L 01/09/2024 8:34 AM T [facility] eGFR (CKD-EPIcr 2020) 43(L) >=60 mL/min/1.7 3 m2 01/09/2024 8:34 AM T [facility] Comment:Estimated GFR was ca lculated using the CKD-EPIcr (2020) equation refit without race. The equation is recommended by the [employer] - [place] [employer]ph[employer] Task Force. Blood BLOOD SAMPLE TAKEN FROM CENTRAL LINE / Unknown Port / Unknown 01/09/2024 8:11 AM EDT 01/09/2024 8:15 AM EDT us Manjula Vyas MD CHEMISTRY ORDERABLES Final Re sult [facility] [address] [place], [place] [id number] * CT CHEST WO CONTRAST (01/06/2024 7:59 AM EDT) Anatomical Region Laterality Modality Chest Computed Tomogra phy 01/06/2024 7:59 AM EDT Impressions 01/06/2024 10:42 AM EDT No acute intrathoracic inflammatory process. No dominant lung mass/suspicious nodule. Please see above detailed report. - Note: Radiology results need to be interpreted within a comprehensive clinical context. If you have questions about the radiology report, please contact the office of the ordering clinician. Narrative 01/06/2024 10:[address] CHEST WITHOUT CONTRAST, 01/06/2024 7:59 AM CLINICAL HISTORY: R91.8-Other nonspecific abnormal finding of lung bxpji-EUE-93-CM. Attention right upper lobe. COMPARISON: Prior comparison chest CT studies dated 10/07/2023, 10/08/2022. PROCEDURE COMMENTS: Multi-detector CT of the chest with multiplanar reconstructions per protocol. No IV contrast injection. Additional multiplanar reconstructions performed and reviewed at dedicated workstation. Dose 1 : CT DLP Total : 245.9 mGycm DLP Spiral Max : 245.9 mGycm Maximum CTDI Vol : 6.8 mGy SSDE : 8.432 mGy SSDE Diameter : 29.7 cm SSDE Source : [employer] FINDINGS: Mild diffuse global cardiac enlargement. Diffuse tortuous appearance of the thoracic aorta. The ascending thoracic aorta measures 4.5 x 4.6 cm in greatest AP/transverse dimension. Benign scattered intrathoracic nodes. Right-sided chest port. Diffuse thyroid enlargement which extends substernally. No acute lung consolidation or pleural effusions. Chronic bilateral symmetric bronchiectasis changes with greatest involvement of the lower lobes. Chronic increased postinflammatory lung markings of the lingular segment and both dependent lower lobes. Interval resolution of dependent right upper lobe groundglass nodular opacity adjacent to the pleural fissure. No dominant lung mass/suspicious nodule. Mild diffuse thoracic spinal curvature with minimal multilevel degenerative bony discogenic changes. Included images of the upper abdomen demonstrate normal adrenals. Dominant calcified gallstone. Stable low-attenuation lobulated liver cyst. Mild splenomegaly. Procedure Note Oswaldo Rose DO - 01/06/2024 CT CHEST WITHOUT CONTRAST, 01/06/2024 7:59 AM CLINICAL HISTORY: R91.8-Other nonspecific abnormal finding of lung gwnzs-GWA-82-CM. Attention right upper lobe. COMPARISON: Prior comparison chest CT studies dated 10/07/2023,10/08/2022. PROCEDURE COMMENTS: Multi-detector CT of the chest with multiplanar reconstructions per protocol. No IV contrast injection. Additionalmultiplanar reconstructions performed and reviewed at dedicated workstation. Dose 1 : CT DLP Total : 245.9 mGycm DLP Spiral Max : 245.9 mGycm Maximum CTDI Vol : 6.8 mGy SSDE : 8.432 mGy SSDE Diameter : 29.7 cm SSDE Source : [employer] FINDINGS: Mild diffuse global cardiac enlargement. Diffuse tortuousappearance of the thoracic aorta. The ascending thoracic aorta measures 4.5 x 4.6 cmin greatest AP/transverse dimension. Benign scattered intrathoracic nodes. Right-sided chest port. Diffuse thyroid enlargement which extendssubsternally. No acute lung consolidation or pleural effusions. Chronic bilateralsymmetric bronchiectasis changes with greatest involvement of the lower lobes.Chronic increased postinflammatory lung markings of the lingular segment andboth dependent lower lobes. Interval resolution of dependent right upper lobe groundglass nodular opacity adjacent to the pleural fissure. No dominantlung mass/suspicious nodule. Mild diffuse thoracic spinal curvature with minimal multileveldegenerative bony discogenic changes. Included images of the upper abdomen demonstratenormal adrenals. Dominant calcified gallstone. Stable low-attenuation lobulatedliver cyst. Mild splenomegaly. IMPRESSION: No acute intrathoracic inflammatory process. No dominant lung mass/suspicious nodule. Please see above detailed report. - Note: Radiology results need to be interpreted within a comprehensiveclinical context. If you have questions about the radiology report, please contactthe office of the ordering clinician. us Manjula Vyas MD IMG CT ORDERABLES Final Resul t * MM MAMMO DIGITAL TOM SCREEN BILAT (10/21/2023 8:32 AM EDT) Only the most recent of5 resultswithin the time period is included. Anatomical Region Laterality Modality Breast Bilateral Mammography 10/24/2023 9:28 AM EDT Impressions 10/24/2023 9:28 AM EDT Negative ([id number]) ~ RECOMMENDATION: Routine screening mammogram in 1 year. ~ DISCLAIMER * Any patient with a palpable abnormality, unexplained by breast imaging, should be managed on clinical basis by the attending physician. * Breast imaging has a false negative rate of 15%. * The patient was notified by mail of the results of this examination. *The patient's information was entered into a reminder system with a target due date for the next mammogram, in accordance with the [place] [employer] and the Society of Breast Imaging recommendations. Narrative 10/24/2023 9:28 AM EDT Procedure:MM MAMMO DIGITAL TOM SCREEN BILAT ~ Reason for exam: screening, asymptomatic. Z12.31-Encounter for screening mammogram for malignant neoplasm of quzvol-ATJ-48-CM ~ MM MAMMO DIGITAL TOM SCREEN BILAT Bilateral CC and MLO view(s) were taken. There are scattered fibroglandular densities. Prior study comparison: Compared with prior studies the most recent being 10/22/22, 10/23/21 No mammographic evidence of malignancy. ~ Procedure Note Rita Pillai MD - 10/24/2023 Procedure:MM MAMMO DIGITAL TOM SCREEN BILAT ~ Reason for exam: screening, asymptomatic. Z12.31-Encounter for screening mammogram for malignant neoplasm of dczcjx-VNK-41-CM ~ MM MAMMO DIGITAL TOM SCREEN BILAT Bilateral CC and MLO view(s) were taken. There are scattered fibroglandular densities. Prior study comparison: Compared with prior studies the most recentbeing 10/22/22, 10/23/21 No mammographic evidence of malignancy. ~ IMPRESSION: Negative ([id number]-8) ~ RECOMMENDATION: Routine screening mammogram in 1 year. ~ DISCLAIMER * Any patient with a palpable abnormality, unexplained by breast imaging, should be managed on clinical basis by the attending physician. * Breast imaging has a false negative rate of 15%. * The patient was notified by mail of the results of this examination. *The patient's information was entered into a reminder system with atarget due date for the next mammogram, in accordance with the [place] [employer] and the Society of Breast Imaging recommendations. us Anyi Caro APRN IMG MAMMOGRAPHY ORDERABLES Fin al Result * CT CHEST ABDOMEN PELVIS WO ORAL WITH IV CONTRAST (10/07/2023 9:25 AM EDT) Anatomical Region Laterality Modality Abdomen, Chest, Pelvis Computed Tomography 10/07/2023 9:25 AM EDT Impressions 10/07/2023 11:14 AM EDT Stable exam. No evidence of recurrent adenopathy in the chest, abdomen, pelvis. There is a subpleural groundglass nodule in the dependent right upper lobe which is likely infectious or inflammatory. Consider short-term 2-[address] follow-up - Note: Radiology results need to be interpreted within a comprehensive clinical context. If you have questions about the radiology report, please contact the office of the ordering clinician. 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 COMPARISON: 10/08/2022, 04/09/2022, 10/09/2021 PROCEDURE COMMENTS: Multidetector CT chest abdomen and pelvis with multiplanar reconstructions. Isovue 370 IV contrast given as recorded in EPIC. Dose 1 : CT DLP Total : 712.45 mGycm DLP Spiral Max : 414.36 mGycm Maximum CTDI Vol : 8.54 mGy FINDINGS: CT CHEST: Right IJ port catheter. Thyroid unremarkable. No axillary or mediastinal adenopathy. Heart chambers great vessels unremarkable. No pericardial effusion. No focal esophageal wall thickening. The airways are grossly patent. No dense consolidation or effusion. Pulmonary nodules: No suspicious pulmonary nodules. Groundglass subpleural nodule in the dependent right upper lobe is likely infectious or inflammatory. Coronary artery calcification: Mild. CT ABDOMEN AND PELVIS: Liver, spleen, adrenal glands, pancreas unremarkable. Cholelithiasis without evidence of cholecystitis. No renal mass. No hydronephrosis. Bladder is unremarkable. No dilated or inflamed loops of bowel. Colonic diverticulosis without evidence of diverticulitis. Again seen is a heterogeneously enhancing uterine mass suggestive of fibroid.. Overall appearance unchanged compared to multiple priors. No adenopathy. No ascites. No destructive bony lesion. Procedure Note Yvon Acosta MD - 10/07/2023 CT CHEST, ABDOMEN, AND PELVIS WITH CONTRAST, 10/07/2023 9:25 AM CLINICAL HISTORY: Z85.72-Personal history of ycw-Mndsxamzmbczhdmc-NLR-10-CM R19.68-Wqlkh-wkwixbvgh and pelvic swelling, mass and lump, unspecified ldei-NRZ-44-CM. COMPARISON: 10/08/2022, 04/09/2022, 10/09/2021 PROCEDURE COMMENTS: Multidetector CT chest abdomen and pelvis withmultiplanar reconstructions. Isovue 370 IV contrast given as recorded in EPIC. Dose 1 : CT DLP Total : 712.45 mGycm DLP Spiral Max : 414.36 mGycm Maximum CTDI Vol : 8.54 mGy FINDINGS: CT CHEST: Right IJ port catheter. Thyroid unremarkable. No axillary or mediastinal adenopathy. Heart chambers great vessels unremarkable. No pericardial effusion. No focal esophageal wall thickening. The airways are grossly patent. No dense consolidation or effusion. Pulmonary nodules: No suspicious pulmonary nodules. Groundglass subpleural nodule in the dependent right upper lobe islikely infectious or inflammatory. Coronary artery calcification: Mild. CT ABDOMEN AND PELVIS: Liver, spleen, adrenal glands, pancreasunremarkable. Cholelithiasis without evidence of cholecystitis. No renal mass. No hydronephrosis. Bladder is unremarkable. No dilated or inflamed loops of bowel. Colonic diverticulosis withoutevidence of diverticulitis. Again seen is a heterogeneously enhancing uterine mass suggestive offibroid.. Overall appearance unchanged compared to multiple priors. No adenopathy. No ascites. No destructive bony lesion. IMPRESSION: Stable exam. No evidence of recurrent adenopathy in the chest, abdomen,pelvis. There is a subpleural groundglass nodule in the dependent right upper lobewhich is likely infectious or inflammatory. Consider short-term 2-3 [address] CTfollow-up - Note: Radiology results need to be interpreted within a comprehensiveclinical context. If you have questions about the radiology report, please contactthe office of the ordering clinician. Manjula Vyas MD IM CT ORDERABLES Final Resul t * CREATININE ISTAT (10/07/2023 9:18 AM EDT) Only the most recent of4 resultswithin the time period is included. Creatinine-iST AT 1.3 0.6 - 1.3 mg/dL 10/07/2023 9:21 AM EDT [facility] Blood BLOOD SPECIMEN / Unknown 10/07/2023 9:18 AM EDT 10/07/2023 9:21 AM EDT us Manjula Vyas MD POINT OF CARE TEST ORDERABLES Final Result Performing Organization Address [facility] Co de Phone Number [facility] [address] [place] [address] * INTRAOP AIRWAY PLACEMENT (02/04/2023 9:55 AM EST) Narrative [facility] - 02/04/2023 9:55 AM EST Esme Zamora, SENIOR [employer] TECHNICIAN 02/04/2023 9:55 AM Intraop Airway Placement: Date/Time: 02/04/2023 9:55 AM Airway type: Nasal cannula salter us Octavio Escobar MD [place] ANESTHESIA Final Result Performing Organization Address [facility] Co de Phone Number [facility] [address] [place] [address] * INTRAOP AIRWAY PLACEMENT (01/26/2023 9:48 AM EST) Narrative [facility] - 01/26/2023 9:48 AM EST Esme Zamora, SENIOR W[employer] TECHNICIAN 01/26/2023 9:48 AM Intraop Airway Placement: Date/Time: 01/26/2023 9:48 AM Airway type: Nasal cannula salter Adama Olivares MD [place] ANESTHESIA Final Resul t Performing Organization Address [facility] de Phone Number [facility] [address] [place] [address] * CT CHEST ABDOMEN PELVIS W CONTRAST (10/08/2022 9:27 AM EDT) Only the most recent of3 resultswithin the time period is included. Anatomical Region Laterality Modality Abdomen, Chest, Pelvis Computed Tomography 10/08/2022 9:27 AM EDT Impressions 10/08/2022 10:33 AM EDT 1. Stable CT chest, abdomen and pelvis from April 09, 2022. No interval lymphadenopathy. - Note: Radiology results need to be interpreted within a comprehensive clinical context. If you have questions about the radiology report, please contact the office of the ordering clinician. Narrative 10/08/2022 10:[address] CHEST, ABDOMEN, AND PELVIS WITH CONTRAST, 10/08/2022 9:27 AM CLINICAL HISTORY: Z85.72-Personal history of non-Hodgkin vbkexpxky-JJN-52-CM. COMPARISON: CT chest, abdomen and pelvis April 09, 2022. PROCEDURE COMMENTS: Multidetector CT chest abdomen and pelvis with multiplanar reconstructions. Isovue 370 IV contrast given as recorded in EPIC. Dose 1 : CT DLP Total : 852 mGycm DLP Spiral Max : 580.5 mGycm Maximum CTDI Vol : 11.6 mGy SSDE : 14.384 mGy SSDE Diameter : 29.771 cm SSDE Source : [employer] FINDINGS: CT CHEST: The ascending aorta is stable at 4.2 cm. There is no hilar or mediastinal adenopathy. No axillary adenopathy. No pneumonia, effusion or pneumothorax. No worrisome lung nodules. Coronary artery calcification: Mild. CT ABDOMEN AND PELVIS: There is no retroperitoneal adenopathy identified. There is a gallstone within the gallbladder. The liver, spleen, pancreas, adrenal glands and kidneys are stable appearing. Small and large bowel show no inflammation or dilatation. Uterine fibroid is again noted, measuring 5.4 cm. No pelvic sidewall or inguinal adenopathy. No lytic or blastic skeletal lesions noted. Procedure Note Dionicio Cardoso MD - 10/08/2022 CT CHEST, ABDOMEN, AND PELVIS WITH CONTRAST, 10/08/2022 9:27 AM CLINICAL HISTORY: Z85.72-Personal history of rst-Lbozymmphvitiygx-EJY-10-CM. COMPARISON: CT chest, abdomen and pelvis April 09, 2022. PROCEDURE COMMENTS: Multidetector CT chest abdomen and pelvis withmultiplanar reconstructions. Isovue 370 IV contrast given as recorded in EPIC. Dose 1 : CT DLP Total : 852 mGycm DLP Spiral Max : 580.5 mGycm Maximum CTDI Vol : 11.6 mGy SSDE : 14.384 mGy SSDE Diameter : 29.771 cm SSDE Source : [employer] FINDINGS: CT CHEST: The ascending aorta is stable at 4.2 cm. There is no hilar or mediastinal adenopathy. No axillary adenopathy. No pneumonia, effusion or pneumothorax. No worrisome lung nodules. Coronary artery calcification: Mild. CT ABDOMEN AND PELVIS: There is no retroperitoneal adenopathy identified.There is a gallstone within the gallbladder. The liver, spleen, pancreas, adrenal glands and kidneys are stableappearing. Small and large bowel show no inflammation or dilatation. Uterine fibroid is again noted, measuring 5.4 cm. No pelvic sidewall oringuinal adenopathy. No lytic or blastic skeletal lesions noted. IMPRESSION: 1. Stable CT chest, abdomen and pelvis from April 09, 2022. Nointerval lymphadenopathy. - Note: Radiology results need to be interpreted within a comprehensiveclinical context. If you have questions about the radiology report, please contactthe office of the ordering clinician. Manjula Vyas MD IM CT ORDERABLES Final Resul t * (ABNORMAL) CBC (08/26/2021 6:07 AM EDT) Only the most recent of2 resultswithin the time period is included. WBC 3.6(L) 3.7 - 10.3 x10(3)/mcL 08/26/2021 7:09 AM EDT [facility] RBC 3.68(L) 3.90 - 5.20 x10(6)/mcL 08/26/2021 7:09 AM EDT [facility] Hgb 11.6 11.2 - 15.7 g/dL 08/26/2021 7:09 AM EDT [facility] Hct 34.8 34.0 - 45.0 % 08/26/2021 7:09 AM EDT [facility] MCV 94.6 80.0 - 100.0 fL 08/26/2021 7:09 AM EDT [facility] MCH 31.5 26.0 - 34.0 pg 08/26/2021 7:09 AM EDT [facility] MCHC 33.3 30.7 - 35.5 g/dL 08/26/2021 7:09 AM EDT [facility] RDW 13.5 <=14.9 % 08/26/2021 7:09 AM EDT [facility] Platelet 127(L) 155 - 369 x10(3)/mcL 08/26/2021 7:09 AM EDT [facility] MPV 9.7 8.8 - 12.5 fL 08/26/2021 7:09 AM EDT [facility] Blood BLOOD SAMPLE TAKEN FROM CENTRAL LINE / Unknown Port / Unknown 08/26/2021 6:07 AM EDT 08/26/2021 6:56 AM EDT S Herber DO HEMATOLOGY ORDERABLES Final R esult [facility] [address] [place] [address] * CORONAVIRUS 2019 (08/24/2021 8:13 PM EDT) Only the most recent of2 resultswithin the time period is included. CORONAVIRUS [id number] Not Detected Not Detected 08/25/2021 4:10 AM EDT [employer] Comment: Caution should be exercised when interpreting a result of 'Not Detected'. A result of 'Not Detected' does not rule out COVID-19 and cannot be used as sole basis for treatment or patient management decisions. If COVID-19 is still suspected following a 'Not Detected' result, re-testing should be considered. This test is a nucleic acid amplification test intended for the qualitative detection of nucleic acid from the SARS-CoV-2 in upper respiratory samples collected from individuals suspected of COVID-19. Test is performed on the [employer] platform under the FDA's Emergency Use Authorization (EUA). [employer] Provider Fact Sheet: https://www.fda.gov/media/313828/download [employer] Patient Fact Sheet: https://www.fda.gov/media/277367/download Performed at [facility] [address] [place] [address]. [address] CLIA [id number] Swab BOTH ANTERIOR NARES / Unknown 08/24/2021 8:13 PM EDT 08/24/2021 8:30 PM EDT us Shante Campa APRN MICROBIOLOGY - GENERAL ORDER KAMALA Final Result [facility] Chat& (ChatAnd) [facility] [address] [place] [address] * EXTRA LARSEN URINE CX (08/24/2021 8:13 PM EDT) Urine URINE SPECIMEN COLLECTION, CLEAN CATCH / Unknown 08/24/2021 8:13 PM EDT 08/24/2021 8:30 PM EDT Shante Campa APRN MICROBIOLOGY - GENERAL ORDER KAMALA Final Result Performing Organization Address [facility] Co de Phone Number [facility] [address] [place] [address] * (ABNORMAL) URINALYSIS (08/24/2021 8:13 PM EDT) Only the most recent of2 resultswithin the time period is included. UA Color Yellow 08/24/2021 8:43 PM EDT [facility] UA Appear Hazy(A) Clear 08/24/2021 8:43 PM EDT [facility] UA Glucose Negative Negative mg/dL 08/24/2021 8:43 PM EDT [facility] UA Ketones Negative Negative mg/dL 08/24/2021 8:43 PM EDT [facility] UA Blood Negative Negative 08/24/2021 8:43 PM EDT [facility] UA pH 6.0 5.0 - 8.0 pH 08/24/2021 8:43 PM EDT [facility] UA Protein Negative Negative mg/dL 08/24/2021 8:43 PM EDT [facility] UA Urobilinogen 0.2 <=1 mg/dL 8:43 PM EDT [facility] UA Bili Negative Negative 08/24/2021 8:43 PM EDT [facility] UA Nitrite Positive(A) Negative 08/24/2021 8:43 PM EDT [facility] UA Leuk Est Small(A) Negative 08/24/2021 8:43 PM EDT [facility] UA Spec Grav 1.015 1.001 - 1.035 no units 08/24/2021 8:43 PM EDT [facility] Comment:Reference range theodora d for random specimens only. UA WBC 30(H) 0 - 4 /HPF 08/24/2021 8:43 PM EDT [facility] UA Squam Epi 1+ /LPF 08/24/2021 8:43 PM EDT [facility] UA Amorph Trace /LPF 08/24/2021 8:43 PM EDT [facility] UA Bacteria 1+(A) Negative /HPF 08/24/2021 8:43 PM EDT [facility] Urine URINE SPECIMEN COLLECTION, CLEAN CATCH / Unknown 08/24/2021 8:13 PM EDT 08/24/2021 8:30 PM EDT us Shante Campa [employer] URINE ORDERABLES Final Resul t [facility] [address] [place] [address] * CT ABD PEL ED FAST W CONTRAST (08/24/2021 6:27 PM EDT) Only the most recent of2 resultswithin the time period is included. Anatomical Region Laterality Modality Abdomen, Pelvis Computed Tomogra phy 08/24/2021 6:27 PM EDT Impressions 08/24/2021 6:51 PM EDT Mild wall thickening and inflammatory changes involving the proximal ascending colon most prominent at the cecum. Findings concerning for an infectious or inflammatory colitis however underlying mass cannot be entirely excluded. Correlate with colonoscopy. Cholelithiasis. No findings to suggest acute cholecystitis. - Note: Radiology results need to be interpreted within a comprehensive clinical context. If you have questions about the radiology report, please contact the office of the ordering clinician. Narrative 08/24/2021 6:[address] ABDOMEN AND PELVIS WITH CONTRAST (FAST), 08/24/2021 6:27 PM CLINICAL HISTORY: -abdominal pain, history of lymphoma. COMPARISON: 04/10/2021 PROCEDURE COMMENTS: Multi-detector CT scanning of the abdomen and pelvis with multiplanar reformatting per expedited protocol. Isovue 370 IV contrast given as recorded in EPIC. Dose 1 : CT DLP Total : 416.9 mGycm DLP Spiral Max : 416.9 mGycm Maximum CTDI Vol : 8.2 mGy SSDE : 10.086 mGy SSDE Diameter : 30.1 cm SSDE Source : [employer] FINDINGS: LOWER THORAX: Lung bases unremarkable. ABDOMEN AND PELVIS: 1.4 cm hepatic cyst. Cholelithiasis. No findings to suggest acute cholecystitis. Pancreas and spleen are unremarkable. No findings to suggest bowel obstruction. Appendix is unremarkable. Wall thickening and inflammation of the cecum and proximal ascending colon. Sigmoid diverticulosis. No acute diverticulitis. No bladder stone. No pelvic fluid collection. Uterus is heterogeneous and enlarged. 6.1 cm fibroid in the posterior uterine body, similar to previous exam. No abdominal aortic aneurysm. Adrenal glands are unremarkable. No hydronephrosis. No adenopathy. No acute osseous abnormality identified. Procedure Note Shayy Bartholomew MD - 08/24/2021 CT ABDOMEN AND PELVIS WITH CONTRAST (FAST), 08/24/2021 6:27 PM CLINICAL HISTORY: -abdominal pain, history of lymphoma. COMPARISON: 04/10/2021 PROCEDURE COMMENTS: Multi-detector CT scanning of the abdomen and pelviswith multiplanar reformatting per expedited protocol. Isovue 370 IV contrastgiven as recorded in EPIC. Dose 1 : CT DLP Total : 416.9 mGycm DLP Spiral Max : 416.9 mGycm Maximum CTDI Vol : 8.2 mGy SSDE : 10.086 mGy SSDE Diameter : 30.1 cm SSDE Source : [employer] FINDINGS: LOWER THORAX: Lung bases unremarkable. ABDOMEN AND PELVIS: 1.4 cm hepatic cyst. Cholelithiasis. No findings tosuggest acute cholecystitis. Pancreas and spleen are unremarkable. No findings to suggest bowel obstruction. Appendix is unremarkable. Wall thickening and inflammation of the cecum and proximal ascending colon.Sigmoid diverticulosis. No acute diverticulitis. No bladder stone. No pelvic fluid collection. Uterus is heterogeneousand enlarged. 6.1 cm fibroid in the posterior uterine body, similar toprevious exam. No abdominal aortic aneurysm. Adrenal glands are unremarkable. No hydronephrosis. No adenopathy. No acute osseous abnormality identified. IMPRESSION: Mild wall thickening and inflammatory changes involving the proximal ascending colon most prominent at the cecum. Findings concerningfor an infectious or inflammatory colitis however underlying mass cannot beentirely excluded. Correlate with colonoscopy. Cholelithiasis. No findings to suggest acute cholecystitis. - Note: Radiology results need to be interpreted within a comprehensiveclinical context. If you have questions about the radiology report, please contactthe office of the ordering clinician. Shante Campa APRN IMG CT ORDERABLES Final Resu lt * LIPASE LEVEL (08/24/2021 5:04 PM EDT) Only the most recent of3 resultswithin the time period is included. Lipase Lvl 22 13 - 60 U/L 08/24/2021 5:30 PM EDT [facility] Blood VENOUS BLOOD / Unknown Venipuncture / Unknown 08/24/2021 5:04 PM EDT 08/24/2021 5:13 PM EDT Shante Campa APRN CHEMISTRY ORDERABLES Final R esult Performing Organization Address City/[facility] Co de Phone Number [facility] [address] [place] [address] * LACTIC ACID (08/24/2021 5:04 PM EDT) Lactic Acid 1.5 0.5 - 1.9 mmol/L 08/24/2021 5:28 PM EDT [facility] Blood VENOUS BLOOD / Unknown Venipuncture / Unknown 08/24/2021 5:04 PM EDT 08/24/2021 5:13 PM EDT Shante Campa [employer] CHEMISTRY ORDERABLES Final R esult Performing Organization Address City/[facility]/ZIP Co de Phone Number [facility] [address] [place] [address] * CT ABDOMEN PELVIS W CONTRAST (04/10/2021 9:31 AM EST) Only the most recent of2 resultswithin the time period is included. Anatomical Region Laterality Modality Abdomen, Chest, Pelvis, Hip Comp uted Tomography 04/10/2021 9:31 AM EST Impressions 04/10/2021 12:29 PM EST Continued improvement in appearance of the abdomen and pelvis with minimal residual masses in the left upper abdomen. Overall, significant improvement since July. - Note: Radiology results need to be interpreted within a comprehensive clinical context. If you have questions about the radiology report, please contact the office of the ordering clinician. 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 COMPARISON: 08/14/2020 and PET/CT 01/09/2021 PROCEDURE COMMENTS: Multi-detector CT of the abdomen and pelvis with multiplanar reformatting. Isovue 370 IV contrast given along with radiodense GI contrast as recorded in EPIC. Dose 1 : CT DLP Total : 399.9 mGycm DLP Spiral Max : 399.9 mGycm Maximum CTDI Vol : 8.3 mGy FINDINGS: Lung bases: Unremarkable. Organs: No significant change in 1.7 cm low-attenuation lesion right hepatic lobe. Cholelithiasis. No acute cholecystitis. Pancreas is unremarkable. Small somewhat wedge-shaped low attenuation along the periphery of the anterior spleen. This measures 1.3 x 1.2 cm. GI: No findings to suggest obstruction. No evidence of acute appendicitis. Pelvis: No bladder stone. No pelvic fluid collection. No adenopathy. Fibroid in the uterine fundus is similar to previous exam. Retroperitoneum/peritoneum: No abdominal aortic aneurysm. Adrenal glands are unremarkable. No hydronephrosis. No renal stone. Residual soft tissue mass anterior to the spleen measures up to 2.0 x 0.9 cm. Resolution of bulky periaortic adenopathy as well as mass surrounding much of the splenic artery since July. Bones/soft tissues: No acute bony abnormality. Procedure Note Shayy Bartholomew MD - 04/10/2021 CT ABDOMEN AND PELVIS WITH CONTRAST, 04/10/2021 9:31 AM CLINICAL HISTORY: C83.33-Diffuse large b-cell lymphoma, intra-abdominallymph nodes (HCC)-ICD-10-CM. COMPARISON: 08/14/2020 and PET/CT 01/09/2021 PROCEDURE COMMENTS: Multi-detector CT of the abdomen and pelvis with multiplanar reformatting. Isovue 370 IV contrast given along withradiodense GI contrast as recorded in EPIC. Dose 1 : CT DLP Total : 399.9 mGycm DLP Spiral Max : 399.9 mGycm Maximum CTDI Vol : 8.3 mGy FINDINGS: Lung bases: Unremarkable. Organs: No significant change in 1.7 cm low-attenuation lesion righthepatic lobe. Cholelithiasis. No acute cholecystitis. Pancreas is unremarkable.Small somewhat wedge-shaped low attenuation along the periphery of theanterior spleen. This measures 1.3 x 1.2 cm. GI: No findings to suggest obstruction. No evidence of acuteappendicitis. Pelvis: No bladder stone. No pelvic fluid collection. No adenopathy.Fibroid in the uterine fundus is similar to previous exam. Retroperitoneum/peritoneum: No abdominal aortic aneurysm. Adrenal glandsare unremarkable. No hydronephrosis. No renal stone. Residual soft tissuemass anterior to the spleen measures up to 2.0 x 0.9 cm. Resolution of bulky periaortic adenopathy as well as mass surrounding much of the splenicartery since July. Bones/soft tissues: No acute bony abnormality. IMPRESSION: Continued improvement in appearance of the abdomen and pelvis with minimal residual masses in the left upper abdomen. Overall, significant improvement since July. - Note: Radiology results need to be interpreted within a comprehensiveclinical context. If you have questions about the radiology report, please contactthe office of the ordering clinician. Manjula Vyas MD IM CT ORDERABLES Final Resul t * PET CT SKULL BASE TO MID THIGH (01/09/2021 10:47 AM EDT) Only the most recent of3 resultswithin the time period is included. Anatomical Region Laterality Modality Positron Emissio n Tomography (PET) 01/09/2021 10:4 7 AM EDT Impressions 01/09/2021 3:19 PM EDT Stable PET scan. No evidence of recurrent disease. Gallstones in gallbladder. Scattered uptake in the bowel which is a normal finding however more intense uptake in the sigmoid colon. Correlation with recent colonoscopy. Deauville stage 1. - Note: Radiology results need to be interpreted within a comprehensive clinical context. If you have questions about the radiology report, please contact the office of the ordering clinician. 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 COMPARISON: 10/30/2020 PROCEDURE COMMENTS: 13 mCi 18F-fluorodeoxyglucose (FDG) was administered I.V. Serum blood glucose at the time of the injection was 71 mg/dL. Uptake time was approximately 45 minutes. Scanning performed from the skull vertex to the mid thigh. As an integrated part of the study, noncontrast CT scanning performed for attenuation correction and localization purposes. FINDINGS: Normal distribution of physiologic background activity was present including gastrointestinal, genitourinary, cardiovascular, neurologic systems. Index activity in the right lobe of the liver was 3.9 SUV max. Head and Neck: There are no focal areas of abnormal FDG uptake in the head or neck region. Chest: There are no areas of abnormal uptake identified in the chest. No mediastinal or hilar uptake. No supraclavicular or axillary devin uptake. Abdomen and pelvis: No focal areas of abnormal FDG uptake identified. There is a cyst in the liver. There are calcified stones in a distended gallbladder. No retroperitoneal or mesenteric devin uptake. There is scattered uptake throughout bowel loops. There is a more focal area of intense uptake identified in the sigmoid colon left pelvis where there is diverticulosis. The patient's not had a recent colonoscopy then further evaluation is region recommended. Musculoskeletal: No hypermetabolic foci. Notable CT findings: Splenomegaly unchanged. Calcified gallstone the gallbladder. Umbilical hernia containing small bowel with no evidence of obstruction. Prominent diverticulosis of the colon. No lymphadenopathy. 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 COMPARISON: 10/30/2020 PROCEDURE COMMENTS: 13 mCi 18F-fluorodeoxyglucose (FDG) was administeredI.V. Serum blood glucose at the time of the injection was 71 mg/dL. Uptake timewas approximately 45 minutes. Scanning performed from the skull vertex to themid thigh. As an integrated part of the study, noncontrast CT scanningperformed for attenuation correction and localization purposes. FINDINGS: Normal distribution of physiologic background activity waspresent including gastrointestinal, genitourinary, cardiovascular, neurologicsystems. Index activity in the right lobe of the liver was 3.9 SUV max. Head and Neck: There are no focal areas of abnormal FDG uptake in thehead or neck region. Chest: There are no areas of abnormal uptake identified in the chest.No mediastinal or hilar uptake. No supraclavicular or axillary nodaluptake. Abdomen and pelvis: No focal areas of abnormal FDG uptake identified.There is a cyst in the liver. There are calcified stones in a distendedgallbladder. No retroperitoneal or mesenteric devin uptake. There is scattered uptakethroughout bowel loops. There is a more focal area of intense uptake identified inthe sigmoid colon left pelvis where there is diverticulosis. The patient's nothad a recent colonoscopy then further evaluation is region recommended. Musculoskeletal: No hypermetabolic foci. Notable CT findings: Splenomegaly unchanged. Calcified gallstone the gallbladder. Umbilical hernia containing small bowel with no evidence of obstruction. Prominent diverticulosis of the colon. No lymphadenopathy. IMPRESSION: Stable PET scan. No evidence of recurrent disease. Gallstones in gallbladder. Scattered uptake in the bowel which is a normal findinghowever more intense uptake in the sigmoid colon. Correlation with recentcolonoscopy. Deauville stage 1. - Note: Radiology results need to be interpreted within a comprehensiveclinical context. If you have questions about the radiology report, please contactthe office of the ordering clinician. Carly Mclean [employer] IMG PET ORDERABLES Final Result * GLUCOSE METER POC (01/09/2021 9:18 AM EDT) Only the most recent of3 resultswithin the time period is included. [facility] Glucose Meter POC 71 70 - 100 mg/dL 01/09/2021 9:19 AM EDT [facility] Sample Type Capillary 01/09/2021 9:19 AM EDT [facility] Patient Status Non-Critical Patient 01/09/2021 9:19 AM EDT [facility] Blood BLOOD SPECIMEN / Unknown 01/09/2021 9:18 AM EDT 01/09/2021 9:19 AM EDT Carly Sherrynasim Mclean [employer] POINT OF CARE TEST ORDER KAMALA Final Result [facility] [address] [place], [place] [id number] * (ABNORMAL) BASIC METABOLIC PANEL (09/29/2020 11:57 AM EDT) Only the most recent of8 resultswithin the time period is included. [facility] Sodium 139 136 - 145 mmol/L [facility]2020 [facility] Potassium 3.6 3.5 - 5.0 mmol/L 09/29/2020 12:23 PM [facility] Chloride 106 98 - 107 mmol/L 09/29/2020 12:[facility] Total CO2 29 22 - 29 mmol/L 09/29/2020 12:23 PM [facility] Anion Gap 4(L) 7 - 16 mmol/L 09/29/2020 12:23 PM [facility] Calcium 8.4(L) 8.8 - 10.4 mg/dL 09/29/2020 12:23 PM [facility] Glucose Lvl 94 82 - 100 mg/dL 09/29/2020 12:23 PM [facility] BUN 16 8 - 23 mg/dL 09/29/2020 12:23 PM [facility] Creatinine 0.73 0.51 - 1.30 mg/dL 09/29/2020 12:23 PM [facility] GFR Afr Am 87 >=60 mL/min/1.7 3 m2 09/29/2020 12:23 PM EDT [facility] GFR Non Afr Am 75 >=60 mL/min/1.7 3 m2 09/29/2020 12:23 PM EDT [facility] Comment: This estimated GFR was calculated using CKD-EPI equation which is modified based on ethnicity for Non Americans and Americans. Both results are reported since it is not always possible to determine the patient's ethnicity. This equation should only be used for individuals 18 and older. It has not been validated for use with the elderly (>70 years), women, or in some racial or ethnic subgroups, such as Hispanics. The equation will be less accurate in people with differences in nutritional status or muscle mass. Blood BLOOD SAMPLE TAKEN FROM CENTRAL LINE / Unknown Port / Unknown 09/29/2020 11:57 AM EDT 09/29/2020 11:59 AM EDT Carly Mclean APRN CHEMISTRY ORDERABLES Fin al Result Performing Organization Address City/State/[facility] Co de Phone Number [facility] [address] [place] [phone] * [facility] LOWER EXTREMITY VENOUS RIGHT (09/22/2020 4:53 PM EDT) Anatomical Region Laterality Modality Vascular, Thigh, Leg Electrocard iography 09/22/2020 4:29 PM EDT Impressions 09/22/2020 10:49 PM EDT CONCLUSIONS Acute deep vein thrombosis of the right peroneal veins. No other evidence of a DVT of the right lower extremity or contralateral left common femoral vein. No evidence of a superficial vein thrombosis of the right lower extremity. Narrative Procedure Note Bebeto Cespedes MD - 09/22/2020 IMPRESSION CONCLUSIONS Acute deep vein thrombosis of the right peroneal veins. No other evidence of a DVT of the right lower extremity or contralateralleft common femoral vein. No evidence of a superficial vein thrombosis of the right lowerextremity. Carly Mclean APRN IMG VASCULAR ORDERABLES Final Result * URIC ACID (09/22/2020 8:12 AM EDT) Only the most recent of3 resultswithin the time period is included. Uric Acid 3.3 2.4 - 5.7 mg/dL 09/22/2020 10:22 AM EDT [facility] Blood BLOOD SAMPLE TAKEN FROM CENTRAL LINE / Unknown Port / Unknown 09/22/2020 8:12 AM EDT 09/22/2020 8:22 AM EDT Carly Mclean [employer] CHEMISTRY ORDERABLES Fin al Result Performing Organization Address City/[facility]/ZIP Co de Phone Number [facility] [address] [place] [address] * HEPATITIS B VIRUS CORE ANTIBODIES, TOTAL -REF LAB (08/29/2020 8:29 AM EDT) Pathologist [facility] HBcAb Negative Negative 08/30/2020 9:28 PM EDT [employer] [employer] Comment: INTERPRETIVE INFORMATION: Hepatitis B Core Ab (Total) This assay should not be used for blood donor screening, associated re-entry protocols, or for screening Human Cells, Tissues and Cellular and Tissue-Based Products (HCT/P). Performed by [employer], [address] [place] [phone] [email or web address], Louisa Valencia MD, Lab. Director Blood BLOOD SAMPLE TAKEN FROM CENTRAL LINE / Unknown Port / Unknown 08/29/2020 8:29 AM EDT 08/29/2020 8:36 AM EDT Manjula Vyas MD CHEMISTRY ORDERABLES Final Re sult Performing Organization Address [facility]/ZIP Co de Phone Number [employer] [address] [place], [place] [phone] * HEPATITIS B SURFACE ANTIGEN (08/29/2020 8:29 AM EDT) Pathologist [facility] Hep Bs Ag Non-Reactiv e Non-Reacti ve 08/29/2020 10:39 AM EDT [facility] [place], [facility] Blood BLOOD SAMPLE TAKEN FROM CENTRAL LINE / Unknown Port / Unknown 08/29/2020 8:29 AM EDT 08/29/2020 8:36 AM EDT us Manjula Vyas MD CHEMISTRY ORDERABLES Final Re sult Performing Organization Address [facility]/ZIP Co de Phone Number [facility] [place], [facility] [address] [facility], [place] [address] * PHOSPHORUS LEVEL (08/29/2020 8:29 AM EDT) Phosphorus 2.8 2.5 - 4.5 mg/dL 08/29/2020 8:56 AM EDT [facility] Blood BLOOD SAMPLE TAKEN FROM CENTRAL LINE / Unknown Port / Unknown 08/29/2020 8:29 AM EDT 08/29/2020 8:41 AM EDT us Manjula Vyas MD CHEMISTRY ORDERABLES Final Re sult Performing Organization Address [facility] [place] [address] * EC ECHOCARDIOGRAM COMPLETE W DOPPLER AND COLOR FLOW MAPPING (08/28/2020 9:49 AM EDT) Ejection Fraction 55-60 % PYRAMIS Anatomical Region Laterality Modality Electrocardiogra phy 08/28/2020 9:06 AM EDT Impressions 08/28/2020 12:42 PM EDT CONCLUSIONS Left ventricular ejection fraction is in the normal range. Mild aortic regurgitation. Mild tricuspid regurgitation. Narrative Procedure Note Atul Figueredo MD - 08/28/2020 IMPRESSION CONCLUSIONS Left ventricular ejection fraction is in the normal range. Mild aortic regurgitation. Mild tricuspid regurgitation. us Manjula Vyas MD IMG ECHO ORDERABLES Final Res ult * IR ULTRASOUND GUIDED VASCULAR ACCESS (08/27/2020 11:42 AM EDT) Anatomical Region Laterality Modality Interventional R adiology 08/27/2020 11:4 2 AM EDT Impressions 08/27/2020 1:40 PM EDT SUCCESSFUL PLACEMENT OF PORTED CATHETER THE CATHETER IS READY FOR USE. Narrative 08/27/2020 1:40 PM EDT PROCEDURE: PORTED CATHETER INSERTION HISTORY: Patient with lymphoma requiring chemotherapy. CONSENT: Risks, benefits, treatment options, potential complications and personnel to be involved were discussed (including the risks of radiation exposure, contrast and anesthesia administration) with the patient and all questions were answered and consent was obtained prior to procedure. MEDICATION RECONCILIATION: The patient's medications and allergies were reviewed in the electronic medical record and reconciled to the proposed procedure/treatment. SAMMIE-PROCEDURE DISCUSSION: The appropriate elements of the pre-procedure discussion, safety check list and sign-out were performed. TIME OUT: A time out was performed immediately prior to procedure start with the nursing, and interventional team, correctly identifying the name, date of , procedure, anatomy (including marking of site and side), patient position, procedure consent form, relevant diagnostic and radiology test results, antibiotic administration, safety precautions, and procedure-specific equipment needs. Patient position: Supine Anesthesia: After establishing pulse oximetry, BP and EKG monitoring by the Radiology nurse, moderate sedation with Versed and Fentanyl was administered. Physician Intra-Service time: 30 Minutes Local anesthesia: 2% Buffered Lidocaine Image guidance: Fluoroscopic and sonographic Total Fluoroscopy time: 30 Minutes Cumulative Air Kerma: 0.2 mGy TECHNIQUE: The patient's chest and neck were prepped and draped in the usual sterile fashion. After local anesthesia, access was obtained into the vein using a 21 G needle micropuncture set. After local anestheisa, small incision and pocket was made for the reservoir. Catheter was tunneled from the pocket to the venotomy site. The catheter was trimmed to appropriate length. Micropuncture set was exchanged over guide wire for a peel away sheath. Catheter was advanced through the peel away sheath under fluoroscopic guidance. The port was accessed and demonstrated good blood draw and flush. The port was flushed with heparinized saline. The pocket incision was closed with interrupted Vicryl sutures and Monocryl subcuticular suture. Exofin skin glue was applied the reservoir and venotomy incisions.. The patient tolerated the procedure well. There were no significant complications and no other complications during the procedure. CONCLUSION: The patient was comfortable and was transferred to the recovery room in stable condition. Estimated Blood Loss: Minimal RESULT: Access site: Right internal jugular vein Indwelling device: [address] injectable Power Port (standard port) Location of tip: superior vena cava/right atrium junction Procedure Note Yovn Acosta MD - 08/27/2020 PROCEDURE: PORTED CATHETER INSERTION HISTORY: Patient with lymphoma requiring chemotherapy. CONSENT: Risks, benefits, treatment options, potential complicationsand personnel to be involved were discussed (including the risks ofradiation exposure, contrast and anesthesia administration) with the patient andall questions were answered and consent was obtained prior to procedure. MEDICATION RECONCILIATION: The patient's medications and allergies were reviewed in the electronic medical record and reconciled to the proposed procedure/treatment. SAMMIE-PROCEDURE DISCUSSION: The appropriate elements of thepre-procedure discussion, safety check list and sign-out were performed. TIME OUT: A time out was performed immediately prior to procedure startwith the nursing, and interventional team, correctly identifying the name,date of , procedure, anatomy (including marking of site and side), patient position, procedure consent form, relevant diagnostic and radiology test results, antibiotic administration, safety precautions, andprocedure-specific equipment needs. Patient position: Supine Anesthesia: After establishing pulse oximetry, BP and EKG monitoring bythe Radiology nurse, moderate sedation with Versed and Fentanyl wasadministered. Physician Intra-Service time: 30 Minutes Local anesthesia: 2% Buffered Lidocaine Image guidance: Fluoroscopic and sonographic Total Fluoroscopy time: 30 Minutes Cumulative Air Kerma: 0.2 mGy TECHNIQUE: The patient's chest and neck were prepped and draped in theusual sterile fashion. After local anesthesia, access was obtained into thevein using a 21 G needle micropuncture set. After local anestheisa, smallincision and pocket was made for the reservoir. Catheter was tunneled from thepocket to the venotomy site. The catheter was trimmed to appropriate length. Micropuncture set was exchanged over guide wire for a peel away sheath. Catheter was advanced through the peel away sheath under fluoroscopicguidance. The port was accessed and demonstrated good blood draw and flush. Theport was flushed with heparinized saline. The pocket incision was closed with interrupted Vicryl sutures and Monocryl subcuticular suture. Exofin skinglue was applied the reservoir and venotomy incisions.. The patient tolerated the procedure well. There were no significant complications and no other complications during the procedure. CONCLUSION: The patient was comfortable and was transferred to therecovery room in stable condition. Estimated Blood Loss: Minimal RESULT: Access site: Right internal jugular vein Indwelling device: [address] injectable Power Port (standard port) Location of tip: superior vena cava/right atrium junction IMPRESSION: SUCCESSFUL PLACEMENT OF PORTED CATHETER THE CATHETER IS READY FOR USE. us Manjula Vyas MD IMG IR ORDERABLES Final Resul t * IR PORT PLACEMENT EQUAL OR > 5 YEARS (08/27/2020 11:42 AM EDT) Anatomical Region Laterality Modality Interventional R adiology 08/27/2020 11:4 2 AM EDT Impressions 08/27/2020 1:40 PM EDT SUCCESSFUL PLACEMENT OF PORTED CATHETER THE CATHETER IS READY FOR USE. Narrative 08/27/2020 1:40 PM EDT PROCEDURE: PORTED CATHETER INSERTION HISTORY: Patient with lymphoma requiring chemotherapy. CONSENT: Risks, benefits, treatment options, potential complications and personnel to be involved were discussed (including the risks of radiation exposure, contrast and anesthesia administration) with the patient and all questions were answered and consent was obtained prior to procedure. MEDICATION RECONCILIATION: The patient's medications and allergies were reviewed in the electronic medical record and reconciled to the proposed procedure/treatment. SAMMIE-PROCEDURE DISCUSSION: The appropriate elements of the pre-procedure discussion, safety check list and sign-out were performed. TIME OUT: A time out was performed immediately prior to procedure start with the nursing, and interventional team, correctly identifying the name, date of , procedure, anatomy (including marking of site and side), patient position, procedure consent form, relevant diagnostic and radiology test results, antibiotic administration, safety precautions, and procedure-specific equipment needs. Patient position: Supine Anesthesia: After establishing pulse oximetry, BP and EKG monitoring by the Radiology nurse, moderate sedation with Versed and Fentanyl was administered. Physician Intra-Service time: 30 Minutes Local anesthesia: 2% Buffered Lidocaine Image guidance: Fluoroscopic and sonographic Total Fluoroscopy time: 30 Minutes Cumulative Air Kerma: 0.2 mGy TECHNIQUE: The patient's chest and neck were prepped and draped in the usual sterile fashion. After local anesthesia, access was obtained into the vein using a 21 G needle micropuncture set. After local anestheisa, small incision and pocket was made for the reservoir. Catheter was tunneled from the pocket to the venotomy site. The catheter was trimmed to appropriate length. Micropuncture set was exchanged over guide wire for a peel away sheath. Catheter was advanced through the peel away sheath under fluoroscopic guidance. The port was accessed and demonstrated good blood draw and flush. The port was flushed with heparinized saline. The pocket incision was closed with interrupted Vicryl sutures and Monocryl subcuticular suture. Exofin skin glue was applied the reservoir and venotomy incisions.. The patient tolerated the procedure well. There were no significant complications and no other complications during the procedure. CONCLUSION: The patient was comfortable and was transferred to the recovery room in stable condition. Estimated Blood Loss: Minimal RESULT: Access site: Right internal jugular vein Indwelling device: [address] injectable Power Port (standard port) Location of tip: superior vena cava/right atrium junction Procedure Note Yvon Acosta MD - 08/27/2020 PROCEDURE: PORTED CATHETER INSERTION HISTORY: Patient with lymphoma requiring chemotherapy. CONSENT: Risks, benefits, treatment options, potential complicationsand personnel to be involved were discussed (including the risks ofradiation exposure, contrast and anesthesia administration) with the patient andall questions were answered and consent was obtained prior to procedure. MEDICATION RECONCILIATION: The patient's medications and allergies were reviewed in the electronic medical record and reconciled to the proposed procedure/treatment. SAMMIE-PROCEDURE DISCUSSION: The appropriate elements of thepre-procedure discussion, safety check list and sign-out were performed. TIME OUT: A time out was performed immediately prior to procedure startwith the nursing, and interventional team, correctly identifying the name,date of , procedure, anatomy (including marking of site and side), patient position, procedure consent form, relevant diagnostic and radiology test results, antibiotic administration, safety precautions, andprocedure-specific equipment needs. Patient position: Supine Anesthesia: After establishing pulse oximetry, BP and EKG monitoring bythe Radiology nurse, moderate sedation with Versed and Fentanyl wasadministered. Physician Intra-Service time: 30 Minutes Local anesthesia: 2% Buffered Lidocaine Image guidance: Fluoroscopic and sonographic Total Fluoroscopy time: 30 Minutes Cumulative Air Kerma: 0.2 mGy TECHNIQUE: The patient's chest and neck were prepped and draped in theusual sterile fashion. After local anesthesia, access was obtained into thevein using a 21 G needle micropuncture set. After local anestheisa, smallincision and pocket was made for the reservoir. Catheter was tunneled from thepocket to the venotomy site. The catheter was trimmed to appropriate length. Micropuncture set was exchanged over guide wire for a peel away sheath. Catheter was advanced through the peel away sheath under fluoroscopicguidance. The port was accessed and demonstrated good blood draw and flush. Theport was flushed with heparinized saline. The pocket incision was closed with interrupted Vicryl sutures and Monocryl subcuticular suture. Exofin skinglue was applied the reservoir and venotomy incisions.. The patient tolerated the procedure well. There were no significant complications and no other complications during the procedure. CONCLUSION: The patient was comfortable and was transferred to therecovery room in stable condition. Estimated Blood Loss: Minimal RESULT: Access site: Right internal jugular vein Indwelling device: [address] injectable Power Port (standard port) Location of tip: superior vena cava/right atrium junction IMPRESSION: SUCCESSFUL PLACEMENT OF PORTED CATHETER THE CATHETER IS READY FOR USE. Manjula Vyas MD [facility] IR ORDERABLES Final Resul t * PT / INR (08/26/2020 10:19 AM EDT) Only the most recent of3 resultswithin the time period is included. PT 11.9 10.0 - 13.1 second(s) 08/26/2020 3:12 PM EDT PREFERRED [employer] [employer] INR 1.06 0.89 - 1.17 no units 08/26/2020 3:12 PM EDT [employer] [employer] Comment: Level of Therapy Indications Target INR Range Standard Dose Treatment and prophylaxis of venous 2.0 - 3.0 thrombosis, pulmonary embolism High Dose High risk patients with mechanical 2.5 - 3.5 heart valves Blood VENOUS BLOOD / Unknown Venipuncture / Unknown 08/26/2020 10:19 AM EDT 08/26/2020 10:21 AM EDT us Yariel Wakefield MD HEMATOLOGY ORDERABLES Fin al Result [employer], [employer] [address] [place] [address] , [place] [address] * CT NEEDLE BIOPSY LYMPH NODE (08/19/2020 11:19 AM EDT) Anatomical Region Laterality Modality Computed Tomogra phy 08/19/2020 11:1 9 AM EDT Impressions 08/19/2020 4:[address]-guided core biopsy of retroperitoneal mass/node as described above with no immediate complications. Narrative 08/19/2020 4:[address] NEEDLE BIOPSY LYMPH NODE, CT-guided core biopsy of left retroperitoneal mass/adenopathy, 08/19/2020 11:19 AM HISTORY: -retroperitoneal mass biopsy. Please schedule for saturday 08/19 after holding 81 mg ASA -COVID immunized. Technical factors and findings: Procedure performed by Dr. Wakefiled following informed consent. Following initiation of EKG and pulse oximetry monitoring by the radiology nurse, conscious sedation was provided. IV Versed and fentanyl were administered. Physician time of procedure and monitored sedation was 21 minutes. With the patient prone, scans were obtained through the midabdomen, demonstrating confluent adenopathy/mass within the retroperitoneum. Biopsy was performed from posterior left paraspinal approach into the left side of the retroperitoneal mass/node. Continuous CT was utilized. Under aseptic technique and after local anesthesia was administered, 17-gauge guide needle was placed with the tip confirmed to be within the posterior aspect of the mass/node. 3 18-gauge cores were then obtained using the CrossFiber gun. Touch prep of the initial core was reviewed by the geospatial information technologist. Remainder this core was placed in solution for flow cytometry. 2 additional cores were placed in formalin for subsequent histologic evaluation. Patient tolerated the procedure well there were no immediate complications. Procedure Note Yariel Wakefield MD - 08/19/2020 CT NEEDLE BIOPSY LYMPH NODE, CT-guided core biopsy of leftretroperitoneal mass/adenopathy, 08/19/2020 11:19 AM HISTORY: -retroperitoneal mass biopsy. Please schedule for tuesdayfter holding 81 mg ASA -COVID immunized. Technical factors and findings: Procedure performed by Dr. Wakefield following informed consent.Following initiation of EKG and pulse oximetry monitoring by the radiology nurse, conscious sedation was provided. IV Versed and fentanyl wereadministered. Physician time of procedure and monitored sedation was 21 minutes. With the patient prone, scans were obtained through the midabdomen, demonstrating confluent adenopathy/mass within the retroperitoneum. Biopsywas performed from posterior left paraspinal approach into the left side ofthe retroperitoneal mass/node. Continuous CT was utilized. Under aseptic technique and after local anesthesia was administered,17-gauge guide needle was placed with the tip confirmed to be within the posterioraspect of the mass/node. 3 18-gauge cores were then obtained using the CrossFibergun. Touch prep of the initial core was reviewed by the cytopathologytechnologist. Remainder this core was placed in solution for flow cytometry. 2additional cores were placed in formalin for subsequent histologic evaluation. Patient tolerated the procedure well there were no immediatecomplications. IMPRESSION: CT-guided core biopsy of retroperitoneal mass/node as described above withno immediate complications. us Leana Recinos PA-C IM CT ORDERABLES Final Resu lt * [employer] HIGH-GRADE/LARGE B-CELL LYMPHOMA FISH (08/19/2020 10:46 AM EDT) Pathologist [facility] Glyde Result Results = See Below BCL6 (3q27) [...] Scored = 50 Billing Results (CPT Code: 20846) = Probe Set: BCL6 (3q27), MYC (8q24), BCL2 (18q21) Scoring Method: Manual CPT Code: 43490 # of Units: 3 [facility] 08/19/2020 10:4 6 AM EDT Narrative [facility] - 08/28/2020 5:22 PM EDT Requesting Provider: David Duffy Specimen = [id number] us Gris Velez MD PATHOLOGY ORDERABLES Final Resul t [facility] [address] [place] [address] * [employer] T&B TISSUE PANEL (08/19/2020 10:46 AM EDT) [employer] Result Diagnosis = [place] monoclonal B-cells, consistent with a B-cell lymphoproliferative disorder. Comments = Flow cytometry shows a monoclonal B-cell population (15.8% of total cells) without detectable CD5, CD10 or CD11c expression, consistent with a B-cell lymphoma/leukemia. 29% B-lymphocytes appear to be intermediate to large based on forward light scatter characteristics, which favors a large B-cell lymphoma or [id number] high grade follicular lymphoma. Please correlate the [...] (0.0% of total cells) are not increased. [facility] 08/19/2020 10:4 6 AM EDT Narrative [facility] - 08/21/2020 11:23 AM EDT Requesting Provider: David Duffy Specimen = [id number] us Gris Velez MD PATHOLOGY ORDERABLES Final Resul t [facility] [address] [place] [address] * PATHOLOGY TISSUE REQUEST (08/19/2020 10:46 AM EDT) CASE REPORT Surgical Pathology Case: [id number] Authorizing Provider: Yariel Wakefield MD Collected: 08/19/2020 1046 Ordering Location: ED 2A MED SURG Received: 08/19/2020 1055 Pathologist: Gris Velez MD Specimen: Lymph Node 08/21/2020 9:36 AM EDT [facility] FINAL DIAGNOSIS Left retroperitoneal lymph node, core biopsy: - Large B-cell lymphoma, CD20 positive. 08/21/2020 9:36 AM EDT [facility] at 0936 EDT COMMENT The differential includes diffuse large B-cell lymphoma and double hit lymphoma. The high-grade B-cell FISH panel will be performed on block A2. 08/21/2020 9:36 AM EDT [facility] MICROSCOPIC DESCRIPTION Sections show cores of lymph node tissue replaced by a diffuse infiltrate of large atypical lymphocytes. The atypical lymphocytes have prominent nucleoli and scant cytoplasm. Immunohistochemical stains show the atypical lymphocytes to be positive for CD20, PAX5, CD45, and BCL2 and negative for CD3, cyclin D1, CD5, CD10, and pankeratin. Ki-67 shows a proliferation rate of 95%. All controls stain appropriately. ASR: Some of the immunohistochemical stains were developed and their performance characteristics determined by [facility]. They have not been cleared or approved by the US Food and Drug Administration. The FDA does not require these tests to go through pre-market FDA review. These tests are used for clinical purposes. They should not be regarded as investigational or for research. This laboratory is certified under the Clinical Laboratory Improvement Amendments (CLIA) as qualified to perform high complexity clinical laboratory testing. 08/21/2020 9:36 AM EDT [facility] FLOW CYTOMETRY SUMMARY Diagnosis: [place] monoclonal B-cells, consistent with a B-cell lymphoproliferative disorder. Comments: Flow cytometry shows a monoclonal B-cell population (15.8% of total cells) without detectable CD5, CD10 or CD11c expression, consistent with a B-cell lymphoma/leukemia. 29% B-lymphocytes appear to be intermediate to large based on forward light scatter characteristics, which favors a large B-cell lymphoma or [id number] high grade follicular lymphoma. Please correlate the result with morphologic findings and clinical information. Flow Differential (%) and Population Analysis: Lymphocytes: 86.6% T-cells (81% of lymphoid cells) show a CD4/CD8 ratio about 5.4 without overt phenotypic abnormality. NKcells (1% of lymphoid cells) are unremarkable. Mature B-cells (18% of lymphoid cells) are monoclonal with light chain restriction and show: CD19 mod, CD20 mod, CD5 neg, CD10 neg, CD11c neg, CD23 neg, HLADR mod, and kappa mod (kappa:lambda 11.3). 27% of monoclonal B-cells are large in size by forward light scatter. Monocytes: 5.8% Monocytes show phenotypic evidence of maturation without dysmaturation. Granulocytes: 3.9% Granulocytes show phenotypic evidence of maturation without dysmaturation. CD45 Dim: 2.3% CD34+ cells (0.0% of total cells) are not increased. For additional information see the [place] report [id number]. 08/21/2020 9:36 AM EDT [facility] EMBEDDED IMAGES 08/21/2020 9:36 AM EDT [facility] GROSS DESCRIPTION Received fresh, labeled with the patient's name and lymph node . It consists of four cylindrical fragments of santana-red tissue, ranging from 0.1 cm in greatest dimension to 1.5 x less than 0.1 cm. A b2b outside sales representative section is submitted in RPMI in flow cytometry. The remainder of the specimen is entirely submitted in cassettes A1-A3. /BR Evaluation Episode #1: Adequate / HE 08/21/2020 9:36 AM EDT [facility] Tissue STRUCTURE OF LYMPH NODE / Unknown 08/19/2020 10:46 AM EDT 08/19/2020 10:55 AM EDT us Yariel Wakefield MD PATHOLOGY ORDERABLES Rosanna diehl Result [place] [id number] * (ABNORMAL) PARATHYROID HORMONE-RELATED PEPTIDE BY LC-MS/MS-REF LAB (08/15/2020 11:00 AM EDT) Pathologist [facility] PTHrP by LC-MS/MS, Plasma 10.2(H) 0.0 - 3.4 pmol/L 08/29/2020 1:17 PM EDT [employer] Comment: INTERPRETIVE INFORMATION: Parathyroid Hormone-Related Peptide This test was developed and its performance characteristics determined by [facility] [employer] [facility]. It has not been cleared or approved by the US Food and Drug Administration. This test was performed in a CLIA certified laboratory and is intended for clinical purposes. Performed By: [facility] [address] [place] [address] Blood Bank Laboratory Technician: Louisa Valencia MD Blood VENOUS BLOOD / Unknown Venipuncture / Unknown 08/15/2020 11:00 AM EDT 08/15/2020 11:09 AM EDT Leonardo Rascon MD CHEMISTRY ORDERABLES Final Resul t [employer] [address] [place] [address] * (ABNORMAL) PARATHYROID HORMONE INTACT (08/15/2020 11:00 AM EDT) Pathologist [facility] PTH Intact 10.80(L) 15.00 - 65.00 pg/mL 08/15/2020 12:23 PM EDT [facility]REFERR[facility] Blood VENOUS BLOOD / Unknown Venipuncture / Unknown 08/15/2020 11:00 AM EDT 08/15/2020 11:09 AM EDT Narrative [facility]REFERR[facility] - 08/15/2020 12:23 PM EDT Intact PTH Calcium Interpretation ------- 15 - 65 8.6 - 10.2 Normal > 65 > 10.2 Primary Hyperparathyroidism < 20 > 10.2 Non-Parathyroid hypercalcemia < 15 < 8.6 Hypoparathyroidism Consider the above as guidelines only. PTH results should be interpreted in conjunction with the total or ionized calcium level. The finding of a persistently high-normal calcium accompanied by a high-normal PTH (or a low-normal calcium accompanied by a low-normal PTH) warrants further investigation. Although the PTH may itself be within normal limits, it may be inappropriately high (or low) relative to the circulating calcium level. Ingestion of pierce doses of biotin (>5 mg/day) taken within 8 hours of drawing blood sample can interfere with this immunoassay test. us Leonardo Rascon MD CHEMISTRY ORDERABLES Final Resul t PREFERRED [facility] [address] [facility] , [place] [address] * CT ABDOMEN PELVIS WITH ORAL WO IV CONTRAST (08/14/2020 4:06 PM EDT) Anatomical Region Laterality Modality Abdomen Computed Tomogra phy 08/14/2020 4:06 PM EDT Impressions 08/14/2020 4:52 PM EDT Large retroperitoneal mass with other mass/adenopathy in the left upper quadrant and adjacent to the pancreas. Limited evaluation of this given lack of contrast although favored to be lymphoma. Other primary malignancy possible including possibly pancreatic as well. Consider contrasted scan for better evaluation with tissue sampling. Abnormal appearance of the uterus similar to 2016 nonspecific although suggesting benign etiology such as fibroid. CODE ALTAGRACIA: Results will be conveyed to the patient's care team by Radiology personnel as soon as possible following completion of this dictation. Note: Radiology results need to be interpreted within a comprehensive clinical context. If you have questions about the radiology report, please contact the office of the ordering clinician. Narrative 08/14/2020 4:[address] ABDOMEN AND PELVIS WITH ORAL AND WITHOUT IV CONTRAST, 08/14/2020 4:06 PM CLINICAL HISTORY: R10.84-Generalized abdominal [id number]. COMPARISON: 2016 PROCEDURE COMMENTS: Multi-detector CT scanning of the abdomen with multiplanar reformatting. Oral contrast given. No IV contrast. Automated exposure control for dose reduction was used. CTDIvol: 10.4 mGy. DLP: 513 mGy-cm. FINDINGS: Lung bases are clear. Large retroperitoneal/periaortic mass measuring at least 8.2 x 10 cm. This appears to be largely displacing the pancreas anteriorly. There is however fullness in the region of the pancreatic body which could be pancreas itself versus adenopathy not well evaluated given lack of contrast. No other abnormal soft tissue density throughout the left upper quadrant between the spleen and stomach and mesenteric fat. No suspicious focal liver lesion on this noncontrast exam with likely cyst in the right lobe. Gallstone within an otherwise normal gallbladder. Adrenals grossly normal. Renal parenchyma is also normal in noncontrast appearance without obstruction. Bladder is mildly distended, grossly normal. The small and large bowel are normal in caliber without obstruction or definite wall thickening. Uterus is a rounded masslike appearance similar to 2016, not as well evaluated given lack contrast. Small amount of free fluid. No suspicious osseous lesion. Procedure Note Rafal Brewer MD - 08/14/2020 CT ABDOMEN AND PELVIS WITH ORAL AND WITHOUT IV CONTRAST, 08/14/2020 4:06PM CLINICAL HISTORY: R10.84-Generalized abdominal [id number]. COMPARISON: 2016 PROCEDURE COMMENTS: Multi-detector CT scanning of the abdomen withmultiplanar reformatting. Oral contrast given. No IV contrast. Automated exposurecontrol for dose reduction was used. CTDIvol: 10.4 mGy. DLP: 513 mGy-cm. FINDINGS: Lung bases are clear. Large retroperitoneal/periaortic mass measuring at least 8.2 x 10 cm.This appears to be largely displacing the pancreas anteriorly. There ishowever fullness in the region of the pancreatic body which could be pancreasitself versus adenopathy not well evaluated given lack of contrast. No otherabnormal soft tissue density throughout the left upper quadrant between the spleenand stomach and mesenteric fat. No suspicious focal liver lesion on this noncontrast exam with likely cystin the right lobe. Gallstone within an otherwise normal gallbladder.Adrenals grossly normal. Renal parenchyma is also normal in noncontrast appearance withoutobstruction. Bladder is mildly distended, grossly normal. The small and large bowel are normal in caliber without obstruction ordefinite wall thickening. Uterus is a rounded masslike appearance similar to 2016, not as wellevaluated given lack contrast. Small amount of free fluid. No suspicious osseous lesion. IMPRESSION: Large retroperitoneal mass with other mass/adenopathy in the left upperquadrant and adjacent to the pancreas. Limited evaluation of this given lack ofcontrast although favored to be lymphoma. Other primary malignancy possibleincluding possibly pancreatic as well. Consider contrasted scan for betterevaluation with tissue sampling. Abnormal appearance of the uterus similar to 2016 nonspecific although suggesting benign etiology such as fibroid. CODE ALTAGRACIA: Results will be conveyed to the patient's care team byRadiology personnel as soon as possible following completion of this dictation. Note: Radiology results need to be interpreted within a comprehensiveclinical context. If you have questions about the radiology report, please contactthe office of the ordering clinician. Salina Willams APRN IMG CT ORDERABLES Final Re sult * URINE CULTURE (NO STAIN) (08/14/2020 1:03 PM EDT) Only the most recent of2 resultswithin the time period is included. Pathologist [facility] Culture Multiple bacterial species isolated from urine consistent with urogenital commensal organisms. 08/16/2020 9:46 AM EDT [facility]REF[facility] Urine URINE SPECIMEN COLLECTION, CLEAN CATCH / Unknown 08/14/2020 1:03 PM EDT 08/14/2020 1:03 PM EDT Salina Willams APRN MICROBIOLOGY - GENERAL ORD ERABLES Final Result [employer], [employer] [address] , [place] [address] * (ABNORMAL) SEP URINALYSIS POC (08/14/2020 12:38 PM EDT) UA Color POC Yellow Color 08/14/2020 12:41 PM EDT [facility] UA Appear POC Slightly Cloudy(A) Clear 08/14/2020 12:41 PM EDT [facility] UA Gluc POC Negative Negative mg/dL 08/14/2020 12:41 PM EDT [facility] UA Bili POC Negative Negative 08/14/2020 12:41 PM EDT [facility] UA Ketones POC Negative Negative mg/dL 08/14/2020 12:41 PM EDT [facility] UA SG POC >=1.030 1.001 - 1.035 no units 08/14/2020 12:41 PM EDT [facility] UA Blood POC Negative Negative 08/14/2020 12:41 PM EDT [facility] UA pH POC 5.0 5.0 - 8.0 pH 08/14/2020 12:41 PM EDT [facility] UA Protein POC Trace(A) Negative mg/dL 08/14/2020 12:41 PM EDT [facility] UA Urobilinogen POC 0.2 0.2, 1.0 08/14/2020 12:41 PM EDT [facility] UA Nitrite POC Negative Negative 08/14/2020 12:41 PM EDT [facility] UA Leuk Est POC Negative Negative 12:41 PM EDT [facility] Urine STRUCTURE OF URINARY TRACT PROPER / Unknown 08/14/2020 12:38 PM EDT 08/14/2020 12:41 PM EDT us Salina Willams [employer]ID [employer]AN[employer] COOKING POINT OF CARE TEST ORDERAB LES Final Result [facility] [address] [place] [address] * XR LUMBAR SPINE AP AND LATERAL (07/30/2020 3:11 PM EDT) Anatomical Region Laterality Modality L-spine Radiographic Susie ging 07/30/2020 3:11 PM EDT Impressions 07/30/2020 4:17 PM EDT 1. Advanced lower lumbar facet arthropathy with grade 1 spondylolisthesis at L3-L4 and L4-L5. 2. Transitional anatomy as above, recommend numbering correlation prior to any planned intervention. - Note: Radiology results need to be interpreted within a comprehensive clinical context. If you have questions about the radiology report, please contact the office of the ordering clinician. Narrative 07/30/2020 4:17 PM EDT AP AND LATERAL LUMBAR SPINE, 07/30/2020 3:11 PM CLINICAL HISTORY: M54.42-Lumbago with sciatica, left [id number] COMPARISON: None. PROCEDURE COMMENTS: Minimum of 3 views lumbar spine per protocol. FINDINGS: Transitional anatomy is present. The lowest fully formed disc space is labeled as L5-S1. There is a partially lumbarized S1 with a rudimentary disc space at S1-S2. There is degenerative anterolisthesis of L3 on L4 measuring 2 mm and anterolisthesis of L4 on L5 measuring 9 mm. This is present in the setting of advanced lower lumbar facet arthropathy. Mild intervertebral disc space narrowing at L4-L5. Procedure Note Tianna Ramos MD - 07/30/2020 AP AND LATERAL LUMBAR SPINE, 07/30/2020 3:11 PM CLINICAL HISTORY: M54.42-Lumbago with sciatica, left qoxf-IGN-47-CM COMPARISON: None. PROCEDURE COMMENTS: Minimum of 3 views lumbar spine per protocol. FINDINGS: Transitional anatomy is present. The lowest fully formed discspace is labeled as L5-S1. There is a partially lumbarized S1 with a rudimentarydisc space at S1-S2. There is degenerative anterolisthesis of L3 on I4buxudhdjd 2 mm and anterolisthesis of L4 on L5 measuring 9 mm. This is present in thesetting of advanced lower lumbar facet arthropathy. Mild intervertebral discspace narrowing at L4-L5. IMPRESSION: 1. Advanced lower lumbar facet arthropathy with grade 1 spondylolisthesisat L3-L4 and L4-L5. 2. Transitional anatomy as above, recommend numbering correlation priorto any planned intervention. - Note: Radiology results need to be interpreted within a comprehensiveclinical context. If you have questions about the radiology report, please contactthe office of the ordering clinician. us Anyi Caro [employer] IMG DIAGNOSTIC IMAGING ORDERAB LES Final Result * XR THORACIC SPINE AP LATERAL AND SWIMMERS (07/30/2020 3:11 PM EDT) Anatomical Region Laterality Modality T-spine Radiographic Susie ging 07/30/2020 3:11 PM EDT Impressions 07/30/2020 3:41 PM EDT Mild degenerative change. No fracture or malalignment. - Note: Radiology results need to be interpreted within a comprehensive clinical context. If you have questions about the radiology report, please contact the office of the ordering clinician. Narrative 07/30/2020 3:41 PM EDT XR THORACIC SPINE AP LATERAL AND SWIMMERS, 07/30/2020 3:11 PM CLINICAL HISTORY: M54.41-Lumbago with sciatica, right bhod-AEG-58-CM COMPARISON: None. PROCEDURE COMMENTS: Frontal, lateral, and swimmers views of the thoracic spine per ordered protocol. FINDINGS: Vertebral height and alignment anatomic. No fractures. Mild degenerative changes noted in the midthoracic region. Procedure Note Jeffery Figueredo MD - 07/30/2020 XR THORACIC SPINE AP LATERAL AND SWIMMERS, 07/30/2020 3:11 PM CLINICAL HISTORY: M54.41-Lumbago with sciatica, right kylb-KVG-65-CM COMPARISON: None. PROCEDURE COMMENTS: Frontal, lateral, and swimmers views of the thoracicspine per ordered protocol. FINDINGS: Vertebral height and alignment anatomic. No fractures. Mild degenerative changes noted in the midthoracic region. IMPRESSION: Mild degenerative change. No fracture or malalignment. - Note: Radiology results need to be interpreted within a comprehensiveclinical context. If you have questions about the radiology report, please contactthe office of the ordering clinician. Anyi Caro APRN IMG DIAGNOSTIC IMAGING ORDERAB LES Final Result * MM MAMMO DIGITAL SCREENING W CAD BILAT (10/27/2018 9:24 AM EDT) Only the most recent of2 resultswithin the time period is included. Anatomical Region Laterality Modality Breast Bilateral Mammography 10/30/2018 8:53 AM EDT Impressions 10/30/2018 8:53 AM EDT Negative (DIB-Ldsrdsca-0) ~ RECOMMENDATION: Routine screening mammogram in 1 year. ~ DISCLAIMER * Any patient with a palpable abnormality, unexplained by breast imaging, should be managed on clinical basis by the attending physician. * Breast imaging has a false negative rate of 15%. * The patient was notified by mail of the results of this examination. *The patient's information was entered into a reminder system with a target due date for the next mammogram. The mammogram was reviewed by a Radiologist and CAD. Narrative 10/30/2018 8:53 AM EDT Procedure:MM MAMMO DIGITAL SCREENING W CAD BILAT ~ Reason for exam: screening, asymptomatic. Z12.31-Encounter for screening mammogram for malignant neoplasm of rtkaux-GUE-42-CM ~ MM MAMMO DIG SCREEN CAD BILAT Bilateral CC and MLO view(s) were taken. There are scattered fibroglandular densities. Prior study comparison: Compared with prior studies the most recent being 10/28/17, 08/27/16 No mammographic evidence of malignancy. ~ Procedure Note Davdi German MD - 10/30/2018 Procedure:MM MAMMO DIGITAL SCREENING W CAD BILAT ~ Reason for exam: screening, asymptomatic. Z12.31-Encounter for screening mammogram for malignant neoplasm of ewcygw-OQC-08-CM ~ MM MAMMO DIG SCREEN CAD BILAT Bilateral CC and MLO view(s) were taken. There are scattered fibroglandular densities. Prior study comparison: Compared with prior studies the most recentbeing 10/28/17, 08/27/16 No mammographic evidence of malignancy. ~ IMPRESSION: Negative (FSY-Qlvvcurx-2) ~ RECOMMENDATION: Routine screening mammogram in 1 year. ~ DISCLAIMER * Any patient with a palpable abnormality, unexplained by breast imaging, should be managed on clinical basis by the attending physician. * Breast imaging has a false negative rate of 15%. * The patient was notified by mail of the results of this examination. *The patient's information was entered into a reminder system with atarget due date for the next mammogram. The mammogram was reviewed by a Radiologist and CAD. R Kentrell Domingo [facility] MAMMOGRAPHY ORDERABLES Rosanna l Result * DX BONE DENSITY AXIAL SKELETON (06/09/2018 10:00 AM EDT) Anatomical Region Laterality Modality Dexa Scan 06/09/2018 Narrative 06/09/2018 12:54 PM EDT Indication: The patient is a female age 65 or older who requires a bone density assessment. Study was performed on [employer]. Bone Density: Region BMD T-score Z-score AP Spine (L2, L3) 0.900 -1.4 1.4 Femoral Neck (Right) 0.704 -1.3 1.1 Total Hip (Right) 0.938 0.0 2.2 1/3 Radius (Left) 0.584 -1.8 1.7 World Health Organization criteria for BMD interpretation classify patients as: Normal (T-score at or above -1.0), Low Bone Density (T-score between -1.0 and -2.5), or Osteoporotic (T-score at or below -2.5). T Scores are reported in Postmenopausal women and in men age 50 and older. Z-scores are reported in females prior to menopause and in males younger than age 50. 10-year Fracture Risk(1): Major Osteoporotic Fracture 12% Hip Fracture 2.9% Reported Risk Factors: [place] (), Neck BMD=0.704, BMI=32.5 (1) FRAX(R) Version 3.08. Fracture probability calculated for an untreated patient. Fracture probability may be lower if the patient has received treatment. Previous Exams: Region Date Age BMD T-score BMD Change AP Spine(L2, L3) 06/09/2018 82 0.900 -1.4 -1.9% 10/21/2014 78 0.917 -1.3 Total Hip(Right) 06/09/2018 82 0.938 0.0 -0.3% 10/21/2014 78 0.941 0.0 1/3 Forearm(Left) 06/09/2018 82 0.584 -1.8 2.3% 10/21/2014 78 0.571 -2.0 *Denotes significance at 95% confidence level, LSC for AP Spine = 0.022 g/cm2, LSC for Total Hip = 0.027 g/cm2, LSC for 1/3 Forearm = 0.023 g/cm2 BMD is shown in g/cm2 and BMD Change indicates change vs previous BMD Clinical Information Provided by Patient: Has used or is currently using the following medications: Calcium, BABY ASPIRIN Patient maximum height was 66 Menopause Age: 49 Patient is POSTMENOPAUSAL PRIORS 2014 Interpretation: Bone mineral density is in the low bone density range. A minimum of two years may be required between bone density studies due to inherent testing precision limitations. Intervals between BMD testing should be determined according to each patient's clinical status: typically one year after initiation or change of therapy is appropriate, with longer intervals once therapeutic effect is established. The spine bone mineral density is not significantly changed since the last exam. The spine portion of the study is limited by visual hypertrophic change with associated vertebra deleted. The right hip bone mineral density is not significantly changed since the last exam. Although not approved for monitoring therapy the forearm bone mineral density is not significantly changed since the last exam. Reported by: Leanne Schroeder PA-C, CCD on 06/09/2018 11:52:00 AM. Portia Domingo [facility] DEXA ORDERABLES Final Resul t * MM US BREAST LIMITED RIGHT (11/08/2017 10:22 AM EDT) Anatomical Region Laterality Modality Breast Right Ultrasound 11/08/2017 1:26 PM EDT Impressions 11/08/2017 1:26 PM EDT Benign finding (TAA-Ubrlgvnp-4) The ultrasound correlate to the mammographic finding is a benign-appearing subcentimeter cluster of microcysts. No findings worrisome for breast malignancy. ~ RECOMMENDATION: Routine screening mammogram in 1 year. These findings and follow-up recommendations were discussed with the patient by Dr. Pillai at the time of the study. ~ DISCLAIMER * Any patient with a palpable abnormality, unexplained by breast imaging, should be managed on clinical basis by the attending physician. * Breast imaging has a false negative rate of 15%. * The patient was notified by mail of the results of this examination. *The patient's information was entered into a reminder system with a target due date for the next mammogram. Narrative 11/08/2017 1:26 PM EDT Procedure:MM US BREAST LIMITED RIGHT ~ R92.2-Inconclusive gyxhbadma-HRC-33-CM ~ MM US BREAST LIMITED RIGHT ~ Prior study comparison: Compared with screening mammogram 10-28-17. Targeted right breast ultrasound of the retroareolar right breast demonstrates a focal cluster of small microcysts measuring 5 to 6 mm. During scanning, no solid masses or shadowing seen. ~ Procedure Note Rita Pillai MD - 11/08/2017 Procedure:MM US BREAST LIMITED RIGHT ~ R92.2-Inconclusive knsiolsrb-FAB-89-CM ~ MM US BREAST LIMITED RIGHT ~ Prior study comparison: Compared with screening mammogram 10-28-17. Targeted right breast ultrasound of the retroareolar right breast demonstrates a focal cluster of small microcysts measuring 5 to 6 mm. During scanning, no solid masses or shadowing seen. ~ IMPRESSION: Benign finding (NHK-Kuvrdbmy-5) The ultrasound correlate to the mammographic finding is abenign-appearing subcentimeter cluster of microcysts. No findings worrisome for breast malignancy. ~ RECOMMENDATION: Routine screening mammogram in 1 year. These findings and follow-up recommendations were discussed with the patient by Dr. Pillai at the time of the study. ~ DISCLAIMER * Any patient with a palpable abnormality, unexplained by breast imaging, should be managed on clinical basis by the attending physician. * Breast imaging has a false negative rate of 15%. * The patient was notified by mail of the results of this examination. *The patient's information was entered into a reminder system with atarget due date for the next mammogram. us R Kentrell Domingo IM MAMMOGRAPHY ORDERABLES Rosanna l Result * MM MOBILE MAMMO DIGITAL SCREEN W CAD ANTHONY (10/28/2017 8:55 AM EDT) Only the most recent of5 resultswithin the time period is included. Anatomical Region Laterality Modality Breast Mammography 10/31/2017 12:1 1 PM EDT Impressions 10/31/2017 12:11 PM EDT Incomplete-need additional imaging evaluation (DWF-Dfautils-8) ~ RECOMMENDATION: Ultrasound of the right breast. ~ DISCLAIMER * Any patient with a palpable abnormality, unexplained by breast imaging, should be managed on clinical basis by the attending physician. * Breast imaging has a false negative rate of 15%. * The patient was notified by mail of the results of this examination. *The patient's information was entered into a reminder system with a target due date for the next mammogram. The mammogram was reviewed by a Radiologist and CAD. Narrative 10/31/2017 12:11 PM EDT Procedure:MM MOBILE MAMMO DIGITAL SCREEN W CAD ANTHONY ~ Reason for exam: screening, asymptomatic. Z12.31-Encounter for screening mammogram for malignant neoplasm of levjxj-WYY-84-CM ~ MM MOBILE MAMMO DIGITAL SCREEN W CAD ANTHONY Bilateral CC and MLO view(s) were taken. There are scattered fibroglandular densities. Prior study comparison: Compared with prior studies the most recent being August 27, 2016 New 5 mm circumscribed subareolar nodule on the right. No other change. ~ Procedure Note Miguel Angel An MD - 10/31/2017 Procedure:MM MOBILE MAMMO DIGITAL SCREEN W CAD ANTHONY ~ Reason for exam: screening, asymptomatic. Z12.31-Encounter for screening mammogram for malignant neoplasm of ecgmxg-APD-07-CM ~ MM MOBILE MAMMO DIGITAL SCREEN W CAD ANTHONY Bilateral CC and MLO view(s) were taken. There are scattered fibroglandular densities. Prior study comparison: Compared with prior studies the most recentbeing August 27, 2016 New 5 mm circumscribed subareolar nodule on the right. No other change. ~ IMPRESSION: Incomplete-need additional imaging evaluation (GHL-Jzqbxavb-3) ~ RECOMMENDATION: Ultrasound of the right breast. ~ DISCLAIMER * Any patient with a palpable abnormality, unexplained by breast imaging, should be managed on clinical basis by the attending physician. * Breast imaging has a false negative rate of 15%. * The patient was notified by mail of the results of this examination. *The patient's information was entered into a reminder system with atarget due date for the next mammogram. The mammogram was reviewed by a Radiologist and CAD. R Kentrell Domingo [facility] MAMMOGRAPHY ORDERABLES Rosanna l Result * CT HEAD WO CONTRAST (07/01/2015 9:45 AM EDT) Only the most recent of5 resultswithin the time period is included. Anatomical Region Laterality Modality Head Computed Tomogra phy 07/01/2015 9:45 AM EDT Impressions 07/01/2015 11:59 AM EDT Impression: No acute findings of the brain. Narrative 07/01/2015 11:[address] HEAD WO CONTRAST 07/01/2015 9:45 AM HISTORY: S06.0V0S-Iwdvftqan subdural hemorrhage without loss of consciousness, subsequent sowvagoeh-XGE-90-CM. Compare: Multiple priors, most recent May 30, 2015 Previously seen high left parafalcine subdural has resolved. Densely calcified or osseous density again noted extending in the wording from the right frontal region inner table unchanged Atrophy and ischemic leukoencephalopathy noted. No hemorrhage or mass effect. No fracture or extraaxial collection. Procedure Note Dionicio Thomas MD - 07/01/2015 CT HEAD WO CONTRAST 07/01/2015 9:45 AM HISTORY: S06.2X3P-Csqocnpqx subdural hemorrhage without loss ofconsciousness, subsequent vwwjbsqyd-IEK-32-CM. Compare: Multiple priors, most recent May 30, 2015 Previously seen high left parafalcine subdural has resolved. Densely calcified or osseous density again noted extending in the wordingfrom the right frontal region inner table unchanged Atrophy and ischemic leukoencephalopathy noted. No hemorrhage or masseffect. No fracture or extraaxial collection. Impression: No acute findings of the brain. Tin Short MD IM CT ORDERABLES Final Resul t * DIFFERENTIAL (05/18/2015 6:55 AM EST) Only the most recent of3 resultswithin the time period is included. Neut Percent 64.9 % [facility] Lymph Percent 24.6 % [facility] Mathews Percent 6.8 % [facility] Eos Percent 3.0 % [facility] Baso Percent 0.7 % [facility] Neut# 3.2 1.8 - 7.7 x10(3)/[facility] Lymph# 1.2 0.6 - 4.8 x10(3)/mcL [facility] Mathews# 0.3 0.0 - 1.3 x10(3)/mcL [facility] Eos# 0.2 0.0 - 0.5 x10(3)/mcL [facility] Baso# 0.0 0.0 - 0.2 x10(3)/[facility] Blood specimen (specimen) 05/18/2015 6:55 AM EST 05/18/2015 7:32 AM EST us Elvia Kelly DO HEMATOLOGY ORDERABLES Final Re sult [facility] [address] [place] [address] * XR HIPS BILATERAL AP LATERAL W AP PELVIS (05/16/2015 5:47 PM EST) Anatomical Region Laterality Modality Hip Radiographic Susie ging 05/16/2015 5:4 7 PM EST Impressions 05/16/2015 6:35 PM EST IMPRESSION: 1. No acute fracture. 2. Moderate right and mild left hip osteoarthritis. Narrative 05/16/2015 6:35 PM EST XR HIPS BILATERAL AP LATERAL W AP PELVIS 05/16/2015 5:47 PM HISTORY: Pain -fall TECHNIQUE: 5 views COMPARISON: None FINDINGS: No acute fracture or dislocation. Moderate right and mild left hip osteoarthritis. Moderate degenerative changes at the pubic symphysis are noted. There is residual contrast within the abdomen from prior CT. Procedure Note Armando Mace MD - 05/16/2015 XR HIPS BILATERAL AP LATERAL W AP PELVIS 05/16/2015 5:47 PM HISTORY: Pain -fall TECHNIQUE: 5 views COMPARISON: None FINDINGS: No acute fracture or dislocation. Moderate right and mild left hip osteoarthritis. Moderate degenerative changes at the pubic symphysis arenoted. There is residual contrast within the abdomen from prior CT. IMPRESSION: 1. No acute fracture. 2. Moderate right and mild left hip osteoarthritis. us Elvia Kelly DO IMG DIAGNOSTIC IMAGING ORDERAB LES Final Result * US RENAL AND BLADDER (05/16/2015 5:32 PM EST) Anatomical Region Laterality Modality Abdomen, Pelvis Ultrasound 05/16/2015 5:32 PM EST Impressions 05/16/2015 5:42 PM EST IMPRESSION: Slightly atrophic right kidney cholelithiasis. Otherwise, negative ultrasound bilateral kidneys and urinary bladder. Narrative 05/16/2015 5:42 PM EST PROCEDURE: Ultrasound bilateral kidneys and urinary bladder,05/16/2015 5:32 PM INDICATION: Hematuria after fall FINDINGS: Ultrasound bilateral kidneys and urinary bladder. No prior. There is no hydronephrosis, nephrolithiasis, solid or cystic mass in either kidney. The right kidney is atrophic and measures 9.9 x 6.4 x 5.0 CM. The left kidney measures 11.3 x 5.3 x 4.4 CM. The urinary bladder is sonographic normal. Note is made of cholelithiasis. Procedure Note Jacobo Winkler MD - 05/16/2015 PROCEDURE: Ultrasound bilateral kidneys and urinary bladder,05/16/2015 5:32PM INDICATION: Hematuria after fall FINDINGS: Ultrasound bilateral kidneys and urinary bladder. No prior.There is no hydronephrosis, nephrolithiasis, solid or cystic mass in either kidney.The right kidney is atrophic and measures 9.9 x 6.4 x 5.0 CM. The leftkidney measures 11.3 x 5.3 x 4.4 CM. The urinary bladder is sonographic normal.Note is made of cholelithiasis. IMPRESSION: Slightly atrophic right kidney cholelithiasis. Otherwise,negative ultrasound bilateral kidneys and urinary bladder. Elvia Kelly DO [place] US ORDERABLES Final Result * HEMOGLOBIN A1C (05/16/2015 11:09 AM EST) Hgb A1c 5.3 <=7.0 % Brian HAYWARD OD LABOR[facility] Comment: Reference Interval for Hgb A1c Hgb A1c Interpretation < 6.0 Non-Diabetic Range 6.0 - 7.0 ADA Therapeutic Target > 7.0 Action suggested Blood specimen (specimen) UPPER LIMB STRUCTURE / Unknown 05/16/2015 11:09 AM EST 05/16/2015 2:34 PM EST us Elvia Kelly DO CHEMISTRY ORDERABLES Final Res ult Performing Organization Address [facility] Co de Phone Number [facility] [address] [place] [address] * THYROID STIMULATING HORMONE (05/16/2015 11:09 AM EST) TSH 1.540 0.270 - 4.200 mcIU/mL [facility] Blood specimen (specimen) UPPER LIMB STRUCTURE / Unknown 05/16/2015 11:09 AM EST 05/16/2015 2:34 PM EST us Elvia Kelly DO CHEMISTRY ORDERABLES Final Res ult Performing Organization Address [facility] de Phone Number [facility] [address] [place] [address] * (ABNORMAL) LIPID SCREEN (05/16/2015 11:09 AM EST) Cholesterol 218(H) <=200 mg/dL [facility] Comment: < 200 Desirable 200 - 239 Borderline High >= 240 High Triglyceride 112 <=150 mg/dL [facility] Comment: < 150 Normal 150 - 199 Borderline High 200 - 499 High >= 500 Very High HDL 65 >=40 mg/dL [facility] Comment: > 60 Optimal 40 - 60 Acceptable < 40 Low LDL Calculated 131(H) <=100 mg/dL [facility] Comment: < 100 Optimal 100 - 129 Near or above optimal 130 - 159 Borderline High 160 - 189 High >= 190 Very High Blood specimen (specimen) UPPER LIMB STRUCTURE / Unknown 05/16/2015 11:09 AM EST 05/16/2015 2:34 PM EST us Elvia Kelly DO CHEMISTRY ORDERABLES Edited Re sult - Final Performing Organization Address [facility] Co de Phone Number [facility] [address] [place] [address] * DX BONE DENSITY AXIAL INCLUDING VERTEBRAL FRACTURE ASSESSMENT (10/21/2014 2:16 PM EDT) Anatomical Region Laterality Modality Dexa Scan 10/21/2014 Narrative 10/22/2014 8:53 AM EDT Indication: The patient is a post-menopausal female over age 65 with clinical risk factors for an osteoporotic fracture that requires a bone density assessment. Vertebral Fracture Assessment was performed per protocol. Study was performed on [employer]. Bone Density: Region BMD T-score Z-score AP Spine (L2, L3) 0.917 -1.3 1.4 Femoral Neck (Left) 0.784 -0.6 1.7 Total Hip (Left) 0.951 0.1 2.1 Femoral Neck (Right) 0.720 -1.2 1.1 Total Hip (Right) 0.941 0.0 2.0 1/3 Radius (Left) 0.571 -2.0 1.1 World Health Organization criteria for BMD interpretation classify patients as: Normal (T-score at or above -1.0), Low Bone Density (T-score between -1.0 and -2.5), or Osteoporotic (T-score at or below -2.5). T Scores are reported in Postmenopausal women and in men age 50 and older. Z-scores are reported in females prior to menopause and in males younger than age 50. Previous Exams: Region Date Age BMD T-score BMD Change AP Spine(L2, L3) 10/21/2014 78 0.917 -1.3 4.8%* 02/17/2005 69 0.875 -1.7 Total Hip(Left) 10/21/2014 78 0.951 0.1 -4.9%* 02/17/2005 69 0.999 0.5 *Denotes significance at 95% confidence level, site specific LSC for AP Spine = 0.032 g/cm2, site specific LSC for Total Hip = 0.025 g/cm2 BMD is shown in g/cm2 and BMD Change indicates change vs previous BMD 10-year Fracture Risk(1): Major Osteoporotic Fracture 11% Hip Fracture 2.2% Reported Risk Factors: [place] (), Neck BMD=0.720, BMI=32.8 (1) FRAX(R) Version 3.01. Fracture probability calculated for an untreated patient. Fracture probability may be lower if the patient has received treatment. Vertebral Deformity Assessment: Exam date 10/21/2014 Vertebral Level Impression T8 Normal T9 Normal T10 Normal T11 Normal T12 Normal L1 Normal L2 Normal L3 Normal L4 Normal A spine fracture indicates 5X risk for subsequent spine fracture and 2X risk for subsequent hip fracture. Clinical Information Provided by Patient: Patient maximum height was 66.5 Interpretation: DXA: Bone mineral density is in the low bone density range. The spine bone mineral density is significantly increased from the last exam. The spine portion of the study is limited by hypertrophic changes. The left hip bone mineral density is significantly decreased since the last exam. A minimum of two years may be required between bone density studies due to inherent testing precision limitations. Intervals between BMD testing should be determined according to each patient's clinical status: typically one year after initiation or change of therapy is appropriate, with longer intervals once therapeutic effect is established. VFA: The scan is interpretable from T8 to L4. No vertebral fractures are identified. Note: VFA is designed to detect vertebral fractures and not other abnormalities. Reported by: Rachana Frost PA-C,CCD on 10/21/2014 2:57:00 PM. Portia Domingo IMG DEXA ORDERABLES Final Resul t * D-DIMER (06/09/2012 9:42 PM EDT) D-Dimer <230 <=230 ng/mL D-DU [facility] Comment: This test has been clinically validated by the bracelet and brooch maker and approved by the FDA for exclusion of pulmonary embolism (PE) or deep vein thrombosis (DVT) in patients with a low clinical risk assessment. The cutoff for exclusion of PE and DVT is < 230 ng/mL D-Dimer Units. Increased levels of D-dimer are associated with PE, DVT, disseminated intravascular coagulation, malignancies, inflammation, sepsis, surgery, trauma, , and advanced patient age. [BEVERLEY 2006 11:295(2): 199-207] Blood specimen (specimen) UPPER LIMB STRUCTURE / Unknown 06/09/2012 9:42 PM EDT 06/09/2012 9:44 PM EDT Simon Smallwood MD HEMATOLOGY ORDERABLES Final Resu lt [facility] [address] [place] [address] * XR HAND RIGHT PA LATERAL AND OBLIQUE (12/19/2010 9:52 PM EDT) Anatomical Region Laterality Modality Hand Radiographic Susie ging 12/19/2010 9:20 PM EDT Impressions 12/19/2010 10:02 PM EDT IMPRESSION: First metacarpal base fracture Narrative 12/19/2010 10:02 PM EDT XR HAND RIGHT PA LATERAL AND OBLIQUE in the 12/19/2010 Clinical Indication: -HAND INJURY There is a fracture involving the base of the first metacarpal bone with intra-articular extension. No other fractures or dislocations seen Procedure Note Marino Hodgson - 12/19/2010 XR HAND RIGHT PA LATERAL AND OBLIQUE in the 12/19/2010 Clinical Indication: -HAND INJURY There is a fracture involving the base of the first metacarpal bone withintra-articular extension. No other fractures or dislocations seen IMPRESSION: First metacarpal base fracture us Bolivar Angel MD IMG DIAGNOSTIC IMAGING ORDERA BLES Final Result * SCANNED RADIOLOGY REPORT (01/12/2010 12:00 AM EDT) Anatomical Region Laterality Modality Other Narrative 01/12/2010 8:36 PM EDT Ordered by an unspecified provider. Transcriptions Unknown, U - 01/12/2010 8:35 PM EDT us U Unknown IMG DIAGNOSTIC IMAGING ORDERABLE S Final Result * MM DIG SCR ANTHONY PANEL W/CAD (07/30/2009 1:06 PM EDT) Anatomical Region Laterality Modality Other 07/30/2009 1:06 PM EDT Narrative 07/31/2009 6:18 AM EDT Procedure-MM DIG SCR ANTHONY PANEL W/CAD MM DIGITAL SCR BILAT PANEL Bilateral CC and MLO view(s) were taken. There are scattered fibroglandular densities. Compared with prior studies the most recent being 02-17-05 IMPRESSION- No radiographic evidence of malignancy ([id number]) RECOMMENDATION- Routine screening mammogram in 1 year. * The patient with a palpable abnormality, unexplained by breast imaging, should be managed on clinical basis by the attending physician. * Breast imaging has a false negative rate of 15%. * The patient was notified by mail of the results of this examination. Sewer Inspector- KAYLYNN FIGUEREDO Reading Physician- DIONICIO THOMAS MD Released Date Time- 07/31/09 1155 Procedure Note Dionicio Thomas W - 07/31/2009 Procedure-MM DIG SCR ANTHONY PANEL W/CAD MM DIGITAL SCR BILAT PANEL Bilateral CC and MLO view(s) were taken. There are scattered fibroglandular densities. Compared with prior studies the most recent being 02-17-05 IMPRESSION- No radiographic evidence of malignancy ([id number]) RECOMMENDATION- Routine screening mammogram in 1 year. * The patient with a palpable abnormality, unexplained by breast imaging, should be managed on clinical basis by the attending physician. * Breast imaging has a false negative rate of 15%. * The patient was notified by mail of the results of this examination. Sewer Inspector- KAYLYNN FIGUEREDO Reading Physician- DIONICIO THOMAS MD Released Date Time- 07/31/09 1155 us R Kentrell Domingo [facility] al Result * NM MYOCARDIAL PERFUSION EF ADD (01/10/2006 12:00 AM EDT) Anatomical Region Laterality Modality Other 01/10/2006 01/10/2006 Narrative 01/10/2006 12:00 AM EDT VERIFIED [facility] Reason: Chest Pain Dict.Staff: JAGJIT SAGE Verified By: KHANG HERNANDEZ Florentino: 01/10/06 12:51 pm Exams: NM-MYOCARDIAL PERF MULT SPECT NM-RILEY PERF WALL MOTION ADD GATED STRESS AND REST CARDIAC SPECT WITH GATED WALL MOTION ANALYSIS CALCULATED EJECTION FRACTION 01-10-06: HISTORY: CHEST PAIN Treadmill exercise stress achieving target heart rate. Stress EKG reportedly showed post exercise ischemic change. 12.5mCi Tc 99m Myoview rest cardiac SPECT. 36.2mCi Tc 99m Myoview stress cardiac SPECT. No significant perfusion defect seen. No significant regional wall motion abnormality identified. LV end diastolic volume 76ml, systolic volume 14ml for calculated LVEF of 82% IMPRESSION: 1. NORMAL GATED STRESS AND REST SPECT. ALONA/chantelle end of result Procedure Note Unknown, U - 07/03/2009 VERIFIED [facility] Reason: Chest Pain Dict.Staff: JAGJIT SAGE Verified By: KHANG HERNANDEZ Florentino: 01/10/06 12:51 pm Exams: NM-MYOCARDIAL PERF MULT SPECT NM-RILEY PERF WALL MOTION ADD GATED STRESS AND REST CARDIAC SPECT WITH GATED WALL MOTION ANALYSIS CALCULATED EJECTION FRACTION 01-10-06: HISTORY: CHEST PAIN Treadmill exercise stress achieving target heart rate. Stress EKG reportedly showed post exercise ischemic change. 12.5mCi Tc 99m Myoview rest cardiac SPECT. 36.2mCi Tc 99m Myoview stress cardiac SPECT. No significant perfusion defect seen. No significant regional wall motion abnormality identified. LV end diastolic volume 76ml, systolic volume 14ml for calculated LVEF of 82% IMPRESSION: 1. NORMAL GATED STRESS AND REST SPECT. ALONA/pp end of result us U Unknown IMG [facility] RAD HISTORICAL Final Result * NM MYOCARDIAL PERFUSION WALL MOTION ADD (01/10/2006 12:00 AM EDT) Anatomical Region Laterality Modality Other 01/10/2006 01/10/2006 Narrative 01/10/2006 12:00 AM EDT VERIFIED [facility] Reason: Chest Pain Dict.Staff: JAGJIT SAGE Verified By: KHANG HERNANDEZ Florentino: 01/10/06 12:51 pm Exams: NM-MYOCARDIAL PERF MULT SPECT NM-RILEY PERF WALL MOTION ADD GATED STRESS AND REST CARDIAC SPECT WITH GATED WALL MOTION ANALYSIS CALCULATED EJECTION FRACTION 01-10-06: HISTORY: CHEST PAIN Treadmill exercise stress achieving target heart rate. Stress EKG reportedly showed post exercise ischemic change. 12.5mCi Tc 99m Myoview rest cardiac SPECT. 36.2mCi Tc 99m Myoview stress cardiac SPECT. No significant perfusion defect seen. No significant regional wall motion abnormality identified. LV end diastolic volume 76ml, systolic volume 14ml for calculated LVEF of 82% IMPRESSION: 1. NORMAL GATED STRESS AND REST SPECT. ALONA/pp end of result Procedure Note Unknown, U - 07/03/2009 VERIFIED [facility] Reason: Chest Pain Dict.Staff: JAGJIT SAGE Verified By: KHANG HERNANDEZ Florentino: 01/10/06 12:51 pm Exams: NM-MYOCARDIAL PERF MULT SPECT NM-RILEY PERF WALL MOTION ADD GATED STRESS AND REST CARDIAC SPECT WITH GATED WALL MOTION ANALYSIS CALCULATED EJECTION FRACTION 01-10-06: HISTORY: CHEST PAIN Treadmill exercise stress achieving target heart rate. Stress EKG reportedly showed post exercise ischemic change. 12.5mCi Tc 99m Myoview rest cardiac SPECT. 36.2mCi Tc 99m Myoview stress cardiac SPECT. No significant perfusion defect seen. No significant regional wall motion abnormality identified. LV end diastolic volume 76ml, systolic volume 14ml for calculated LVEF of 82% IMPRESSION: 1. NORMAL GATED STRESS AND REST SPECT. ALONA/pp end of result us U Unknown IMG [facility] RAD HISTORICAL Final Result * NM MYOCARDIAL PERF MULT SPECT (01/09/2006 12:00 AM EDT) Anatomical Region Laterality Modality Other 01/09/2006 01/09/2006 Narrative 01/09/2006 12:00 AM EDT VERIFIED [facility] Reason: Chest Pain Dict.Staff: JAGJIT SAGE Verified By: KHANG HERNANDEZ Florentino: 01/10/06 12:51 pm Exams: NM-MYOCARDIAL PERF MULT SPECT NM-RILEY PERF WALL MOTION ADD GATED STRESS AND REST CARDIAC SPECT WITH GATED WALL MOTION ANALYSIS CALCULATED EJECTION FRACTION 01-10-06: HISTORY: CHEST PAIN Treadmill exercise stress achieving target heart rate. Stress EKG reportedly showed post exercise ischemic change. 12.5mCi Tc 99m Myoview rest cardiac SPECT. 36.2mCi Tc 99m Myoview stress cardiac SPECT. No significant perfusion defect seen. No significant regional wall motion abnormality identified. LV end diastolic volume 76ml, systolic volume 14ml for calculated LVEF of 82% IMPRESSION: 1. NORMAL GATED STRESS AND REST SPECT. ALONA/pp end of result Procedure Note Unknown, U - 07/03/2009 VERIFIED [facility] Reason: Chest Pain Dict.Staff: JAGJIT SAGE Verified By: KHANG HERNANDEZ Florentino: 01/10/06 12:51 pm Exams: NM-MYOCARDIAL PERF MULT SPECT NM-RILEY PERF WALL MOTION ADD GATED STRESS AND REST CARDIAC SPECT WITH GATED WALL MOTION ANALYSIS CALCULATED EJECTION FRACTION 01-10-06: HISTORY: CHEST PAIN Treadmill exercise stress achieving target heart rate. Stress EKG reportedly showed post exercise ischemic change. 12.5mCi Tc 99m Myoview rest cardiac SPECT. 36.2mCi Tc 99m Myoview stress cardiac SPECT. No significant perfusion defect seen. No significant regional wall motion abnormality identified. LV end diastolic volume 76ml, systolic volume 14ml for calculated LVEF of 82% IMPRESSION: 1. NORMAL GATED STRESS AND REST SPECT. ALONA/chantelle end of result us U Unknown IMG [facility] RAD HISTORICAL Final Result * XR CHEST PA OR AP (01/09/2006 12:00 AM EDT) Anatomical Region Laterality Modality Other 01/09/2006 01/09/2006 Narrative 01/09/2006 12:00 AM EDT VERIFIED [facility] Reason: cp ac 2 Dict.Staff: NAHEED PEPPER III Verified By: KHANG HERNANDEZ Florentino: 01/10/06 12:50 pm Exams: DIAG-PORTABLE CHEST AP UPRIGHT PORTABLE CHEST: 01/09/2006 @1336 HISTORY: CHEST PAIN AND TIGHTNESS. FINDINGS: 1. Cardiopericardial silhouette and mediastinum are within normal limits. The lungs are clear. IMPRESSION: NO ACUTE DISEASE. EVGENY/cortes end of result Procedure Note Unknown, U - 07/03/2009 VERIFIED [facility] Reason: cp ac 2 Dict.Staff: NAHEED PEPPER III Verified By: KHANG HERNANDEZ Florentino: 01/10/06 12:50 pm Exams: DIAG-PORTABLE CHEST AP UPRIGHT PORTABLE CHEST: 01/09/2006 @1336 HISTORY: CHEST PAIN AND TIGHTNESS. FINDINGS: 1. Cardiopericardial silhouette and mediastinum are within normal limits. The lungs are clear. IMPRESSION: NO ACUTE DISEASE. EVGENY/cortes end of result us U Unknown [facility] RAD HISTORICAL Final Result * MM BONE DENSITY CENTRAL (02/17/2005 3:31 PM EST) Anatomical Region Laterality Modality Other 02/17/2005 3:31 PM EST Narrative 02/19/2005 2:34 PM EST Study- Bone densitometry was performed on [employer] equipment. Previous DXA study indicates normal/low bone density. CLINICAL INDICATIONS- Patient is a postmenopausal woman with a history of- adult fracture. FINDINGS- REGION DATE BMD T- Change vs (g/cm2) Score previous Spine L1-4 02/17/05 0.894 -1.4 +3.7% 01/14/99 0.863 -1.7 Hip Total, Left 02/17/05 1.006 +0.5 +12.8% 01/14/99 0.892 -0.4 Spine portion of the study is limited by hypertrophic change. IMPRESSION- 1. BMD is in the low-bone density range. 2. Spine BMD is significantly increased from the last exam. 3. Hip BMD is significantly increased from the last exam. RECOMMENDATIONS- 1. Reevaluate and consider follow up DXA in 24 months or sooner if clinically indicated. USEFULNESS OF THE SPINE MEASUREMENT IS LIMITED IN PATIENTS OVER THE AGE OF 70 DUE TO DEGENERATIVE BONY SCLEROSIS The World Health Organization defines normal bone mass for postmenopausal woman as a T-Score at or above -1, osteopenia as a T- Score between -1 and -2.5, osteoporosis as a T-Score at or below -2.5 and severe osteoporosis at or below -2.5 with a fracture. A patient's risk for fracture doubles for each standard deviation decline in bone density. Sewer Inspector- ZACHERY Araujo Radiologist- ESME FREIRE MD. Released Date Time- 02/19/05 1646 Procedure Note Esme Freire - 05/27/2009 Study- Bone densitometry was performed on [employer] equipment. Previous DXA study indicates normal/low bone density. CLINICAL INDICATIONS- Patient is a postmenopausal woman with a history of- adult fracture. FINDINGS- REGION DATE BMD T- Change vs (g/cm2) Score previous Spine L1-4 02/17/05 0.894 -1.4 +3.7% 01/14/99 0.863 -1.7 Hip Total, Left 02/17/05 1.006 +0.5 +12.8% 01/14/99 0.892 -0.4 Spine portion of the study is limited by hypertrophic change. IMPRESSION- 1. BMD is in the low-bone density range. 2. Spine BMD is significantly increased from the last exam. 3. Hip BMD is significantly increased from the last exam. RECOMMENDATIONS- 1. Reevaluate and consider follow up DXA in 24 months or sooner if clinically indicated. USEFULNESS OF THE SPINE MEASUREMENT IS LIMITED IN PATIENTS OVER THE AGE OF 70 DUE TO DEGENERATIVE BONY SCLEROSIS The World Health Organization defines normal bone mass for postmenopausal woman as a T-Score at or above -1, osteopenia as a T- Score between -1 and -2.5, osteoporosis as a T-Score at or below -2.5 and severe osteoporosis at or below -2.5 with a fracture. A patient's risk for fracture doubles for each standard deviation decline in bone density. Sewer Inspector- ZACHERY Araujo Radiologist- ESME FREIRE MD. Released Date Time- 02/19/05 1646 Portia Domingo [facility] RAD HISTORICAL Fin al Result * MM MAMMO SCREEN W/CAD II PANEL (02/17/2005 2:46 PM EST) Anatomical Region Laterality Modality Other 02/17/2005 2:46 PM EST Narrative 02/18/2005 11:06 AM EST Procedure-WW MAMMO SCREEN W/CAD II PANEL Reason for exam- screening. Screening Mammogram With CAD Bilateral CC and MLO view(s) were taken. Prior study comparison- February 11, 2004, bilateral screening mammogram with CAD. January 14, 1999, bilateral screening mammogram. There are scattered fibroglandular densities. No significant changes when compared with prior studies. IMPRESSION- No radiographic evidence of malignancy ([id number]) RECOMMENDATION- Routine screening mammogram in 1 year. * The patient with a palpable abnormality, unexplained by breast imaging, should be managed on clinical basis by the attending physician. * Breast imaging has a false negative rate of 15%. * The patient was notified by mail of the results of this examination. The mammogram was reviewed by a Radiologist and CAD. Sewer Inspector- KAYLYNN Araujo Radiologist- TITO CONROY MD Released Date Time- 02/18/051610 Procedure Note Tito Conroy - 05/27/2009 Procedure-WW MAMMO SCREEN W/CAD II PANEL Reason for exam- screening. Screening Mammogram With CAD Bilateral CC and MLO view(s) were taken. Prior study comparison- February 11, 2004, bilateral screening mammogram with CAD. January 14, 1999, bilateral screening mammogram. There are scattered fibroglandular densities. No significant changes when compared with prior studies. IMPRESSION- No radiographic evidence of malignancy ([id number]) RECOMMENDATION- Routine screening mammogram in 1 year. * The patient with a palpable abnormality, unexplained by breast imaging, should be managed on clinical basis by the attending physician. * Breast imaging has a false negative rate of 15%. * The patient was notified by mail of the results of this examination. The mammogram was reviewed by a Radiologist and CAD. Sewer Inspector- KAYLYNN Araujo Radiologist- TITO CONROY MD Released Date Time- 02/18/051610 Lauren Mercado MD [facility] RAD HISTORIC AL Final Result * US PELVIS/RESIDENTIAL INTERIOR DESIGNER FILING WRITER (02/17/2005 1:25 PM EST) Anatomical Region Laterality Modality Other 02/17/2005 1:25 PM EST Narrative 02/17/2005 3:53 PM EST W/SCRIPT Transabdominal/endovaginal pelvic ultrasound- History of fibroids. Followup study. Comparison with 02/11/04 ultrasound exam. Real-time transabdominal endovaginal pelvic ultrasound performed. The bladder is not optimally distended on the transabdominal study which provides a poor sonographic window. The uterus is anteverted (7.5 x 4.1.x 4.6 cm). A dominant fibroid is noted involving the majority of the uterine fundus anteriorly. The exact dimensions are difficult to measure, but this fibroid is estimated to measure at least 2.3 x 2.5 cm. This fibroid was present on the prior exam and measured 2.7 x 2.7 x 2.2 cm on the previous study. The endometrial stripe measures 7 mm in greatest thickness. Multiple small cervical nabothian cysts. The ovaries were not confidently visualized on either the transabdominal or endovaginal study, and this, in part, was secondary to the patient's large body habitus and bowel within the pelvic cavity. Impression- 1. Nonvisualization of the ovaries. 2. Anteverted uterus. The endometrium measures 6 mm, which is slightly thickened in this postmenopausal patient. The endometrium measured 5 mm on the prior exam. 3. Dominant fundal fibroid. Sewer Inspector- ADRIÁN TRISTAN Reading Radiologist- OSWALDO ROSE DO Released Date Time- 02/17/051930 Procedure Note Oswaldo Rose - 05/27/2009 W/SCRIPT Transabdominal/endovaginal pelvic ultrasound- History of fibroids. Followup study. Comparison with 02/11/04 ultrasound exam. Real-time transabdominal endovaginal pelvic ultrasound performed. The bladder is not optimally distended on the transabdominal study which provides a poor sonographic window. The uterus is anteverted (7.5 x 4.1.x 4.6 cm). A dominant fibroid is noted involving the majority of the uterine fundus anteriorly. The exact dimensions are difficult to measure, but this fibroid is estimated to measure at least 2.3 x 2.5 cm. This fibroid was present on the prior exam and measured 2.7 x 2.7 x 2.2 cm on the previous study. The endometrial stripe measures 7 mm in greatest thickness. Multiple small cervical nabothian cysts. The ovaries were not confidently visualized on either the transabdominal or endovaginal study, and this, in part, was secondary to the patient's large body habitus and bowel within the pelvic cavity. Impression- 1. Nonvisualization of the ovaries. 2. Anteverted uterus. The endometrium measures 6 mm, which is slightly thickened in this postmenopausal patient. The endometrium measured 5 mm on the prior exam. 3. Dominant fundal fibroid. Sewer Inspector- ADRIÁN Araujo Radiologist- OSWALDO ROSE DO Released Date Time- 02/17/051930 Lauren Mercado MD [facility] Final Result Visit Diagnoses Diagnosis Start Date Other screening mammogram 08/10/2010 Abrasions of multiple sites Abrasion or friction burn of other, multiple, and unspecified sites, without mention of infection 12/19/2010 Fracture of metacarpal base of right hand, closed Closed fracture of base of other metacarpal bone(s) 12/19/2010 Knee sprain and strain Sprain and strain of unspecified site of knee and leg 05/20/2012 Swelling of left knee joint Effusion of lower leg joint 06/09/2012 Left knee pain Pain in joint, lower leg 06/09/2012 Other screening mammogram 09/03/2013 Dermatophytosis of nail 12/21/2013 Pain in limb 12/21/2013 Dermatophytosis of nail 03/01/2014 Pain in limb 03/01/2014 Dermatophytosis of nail 05/30/2014 Pain in limb 05/30/2014 Dermatophytosis of nail 08/14/2014 Pain of toe, unspecified laterality 08/14/2014 Other screening mammogram 09/02/2014 Decreased bone density Other disorders of bone and cartilage 10/21/2014 Dermatophytosis of nail 2014 Pain of toe, unspecified laterality 2014 Dermatophytosis of nail 02/06/2015 Dystrophia unguium Other specified disease of nail 02/06/2015 Toe pain, bilateral 02/06/2015 Subdural hematoma (HCC) Subdural hemorrhage 05/16/2015 Hematuria Hematuria, unspecified 05/16/2015 Subdural hematoma, acute (HCC) Subdural hemorrhage 05/16/2015 Subdural hematoma, acute (HCC) Subdural hemorrhage 05/30/2015 Traumatic subdural hemorrhage without loss of consciousness without open intracranial wound, subsequent encounter 07/01/2015 Visit for screening mammogram Other screening mammogram 08/29/2015 Visit for screening mammogram Other screening mammogram 08/27/2016 Encounter for screening for malignant neoplasm of breast 10/28/2017 Breast density Other sign and symptom in breast 11/08/2017 Osteopenia, unspecified location 06/09/2018 Post-menopausal Asymptomatic postmenopausal status (age-related) (natural) 06/09/2018 Tinnitus of both ears Unspecified tinnitus 06/30/2018 Abnormal auditory perception of both ears 06/30/2018 Sensorineural hearing loss (SNHL) of both ears 06/30/2018 Encounter for screening mammogram for malignant neoplasm of breast Other screening mammogram 10/27/2018 Encounter for screening mammogram for malignant neoplasm of breast Other screening mammogram 11/27/2019 Acute back pain with sciatica, right 07/30/2020 Acute back pain with sciatica, left 07/30/2020 Generalized abdominal pain Abdominal pain, generalized 08/14/2020 Generalized abdominal pain Abdominal pain, generalized 08/14/2020 Generalized abdominal pain Abdominal pain, generalized 08/14/2020 Back pain, unspecified back location, unspecified back pain laterality, unspecified chronicity 08/14/2020 Retroperitoneal mass Abdominal or pelvic swelling, mass or lump, unspecified site 08/14/2020 Acute renal failure, unspecified acute renal failure type 08/14/2020 Hypercalcemia 08/14/2020 Retroperitoneal mass Abdominal or pelvic swelling, mass or lump, unspecified site 08/14/2020 Diffuse large B-cell lymphoma of intra-abdominal lymph nodes (HCC) Other malignant lymphomas of intra-abdominal lymph nodes 08/22/2020 Encounter for monitoring cardiotoxic drug therapy Encounter for therapeutic drug monitoring 08/22/2020 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) 08/22/2020 Diffuse large B-cell lymphoma, unspecified body region (HCC) 08/25/2020 Diffuse large B-cell lymphoma, unspecified body region (HCC) 08/26/2020 Pre-op testing Preoperative examination, unspecified 08/26/2020 Encounter for laboratory testing for COVID-19 virus 08/26/2020 Diffuse large B-cell lymphoma of intra-abdominal lymph nodes (HCC) Other malignant lymphomas of intra-abdominal lymph nodes 08/27/2020 Diffuse large B-cell lymphoma of intra-abdominal lymph nodes (HCC) Other malignant lymphomas of intra-abdominal lymph nodes 08/28/2020 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) 08/28/2020 Encounter for chemotherapy management 08/28/2020 Encounter for antineoplastic immunotherapy 08/28/2020 Diffuse large B-cell lymphoma of intra-abdominal lymph nodes (HCC) Other malignant lymphomas of intra-abdominal lymph nodes 08/28/2020 Encounter for monitoring cardiotoxic drug therapy Encounter for therapeutic drug monitoring 08/28/2020 Diffuse large B-cell lymphoma of intra-abdominal lymph nodes (HCC) Other malignant lymphomas of intra-abdominal lymph nodes 08/28/2020 Diffuse large B-cell lymphoma of intra-abdominal lymph nodes (HCC) Other malignant lymphomas of intra-abdominal lymph nodes 08/29/2020 Diffuse large B-cell lymphoma of intra-abdominal lymph nodes (HCC) Other malignant lymphomas of intra-abdominal lymph nodes 09/01/2020 Diffuse large B-cell lymphoma of intra-abdominal lymph nodes (HCC) Other malignant lymphomas of intra-abdominal lymph nodes 09/05/2020 Diffuse large B-cell lymphoma of intra-abdominal lymph nodes (HCC) Other malignant lymphomas of intra-abdominal lymph nodes 09/05/2020 Chemotherapy follow-up examination 09/05/2020 Pancytopenia due to antineoplastic chemotherapy Antineoplastic chemotherapy induced pancytopenia 09/05/2020 Acute deep vein thrombosis (DVT) of right peroneal vein (HCC) 09/22/2020 Diffuse large B-cell lymphoma of intra-abdominal lymph nodes (HCC) Other malignant lymphomas of intra-abdominal lymph nodes 09/22/2020 Right leg pain Pain in limb 09/22/2020 Diffuse large B-cell lymphoma of intra-abdominal lymph nodes (HCC) Other malignant lymphomas of intra-abdominal lymph nodes 09/22/2020 Diffuse large B-cell lymphoma of intra-abdominal lymph nodes (HCC) Other malignant lymphomas of intra-abdominal lymph nodes 09/22/2020 Diffuse large B-cell lymphoma of intra-abdominal lymph nodes (HCC) Other malignant lymphomas of intra-abdominal lymph nodes 09/22/2020 Encounter for chemotherapy management 09/22/2020 Right leg pain Pain in limb 09/22/2020 Hoarseness of voice Dysphonia 09/22/2020 At high risk of tumor lysis syndrome Other specified conditions influencing health status 09/22/2020 Hypokalemia Hypopotassemia 09/22/2020 Diffuse large B-cell lymphoma of intra-abdominal lymph nodes (HCC) Other malignant lymphomas of intra-abdominal lymph nodes 09/23/2020 Acute deep vein thrombosis (DVT) of right peroneal vein (HCC) 09/29/2020 Diffuse large B-cell lymphoma of intra-abdominal lymph nodes (HCC) Other malignant lymphomas of intra-abdominal lymph nodes 09/29/2020 Diffuse large B-cell lymphoma of intra-abdominal lymph nodes (HCC) Other malignant lymphomas of intra-abdominal lymph nodes 10/13/2020 Diffuse large B-cell lymphoma of intra-abdominal lymph nodes (HCC) Other malignant lymphomas of intra-abdominal lymph nodes 10/13/2020 Encounter for chemotherapy management 10/13/2020 Hypokalemia Hypopotassemia 10/13/2020 Acute deep vein thrombosis (DVT) of calf muscle vein of right lower extremity (HCC) 10/13/2020 Anticoagulation management encounter Encounter for therapeutic drug monitoring 10/13/2020 Diffuse large B-cell lymphoma of intra-abdominal lymph nodes (HCC) Other malignant lymphomas of intra-abdominal lymph nodes 10/14/2020 Acute deep vein thrombosis (DVT) of right peroneal vein (HCC) 10/28/2020 Diffuse large B-cell lymphoma of intra-abdominal lymph nodes (HCC) Other malignant lymphomas of intra-abdominal lymph nodes 10/30/2020 Diffuse large B-cell lymphoma of intra-abdominal lymph nodes (HCC) Other malignant lymphomas of intra-abdominal lymph nodes 11/03/2020 Diffuse large B-cell lymphoma of intra-abdominal lymph nodes (HCC) Other malignant lymphomas of intra-abdominal lymph nodes 11/03/2020 Acute deep vein thrombosis (DVT) of calf muscle vein of right lower extremity (HCC) 11/03/2020 Anticoagulation management encounter Encounter for therapeutic drug monitoring 11/03/2020 Encounter for chemotherapy management 11/03/2020 Encounter for antineoplastic immunotherapy 11/03/2020 Diffuse large B-cell lymphoma of intra-abdominal lymph nodes (HCC) Other malignant lymphomas of intra-abdominal lymph nodes 11/04/2020 Hoarseness of voice Dysphonia 11/17/2020 Encounter for screening mammogram for malignant neoplasm of breast Other screening mammogram 11/25/2020 Diffuse large B-cell lymphoma of intra-abdominal lymph nodes (HCC) Other malignant lymphomas of intra-abdominal lymph nodes 11/26/2020 Diffuse large B-cell lymphoma of intra-abdominal lymph nodes (HCC) Other malignant lymphomas of intra-abdominal lymph nodes 11/26/2020 Encounter for chemotherapy management 11/26/2020 Encounter for monitoring cardiotoxic drug therapy Encounter for therapeutic drug monitoring 11/26/2020 Acute deep vein thrombosis (DVT) of right peroneal vein (HCC) 11/26/2020 Diffuse large B-cell lymphoma of intra-abdominal lymph nodes (HCC) Other malignant lymphomas of intra-abdominal lymph nodes 11/27/2020 Diffuse large B-cell lymphoma of intra-abdominal lymph nodes (HCC) Other malignant lymphomas of intra-abdominal lymph nodes 12/17/2020 Diffuse large B-cell lymphoma of intra-abdominal lymph nodes (HCC) Other malignant lymphomas of intra-abdominal lymph nodes 12/17/2020 Encounter for chemotherapy management 12/17/2020 Acute deep vein thrombosis (DVT) of right peroneal vein (HCC) 12/17/2020 Diffuse large B-cell lymphoma of intra-abdominal lymph nodes (HCC) Other malignant lymphomas of intra-abdominal lymph nodes 12/18/2020 Subconjunctival hemorrhage of left eye 12/27/2020 Diffuse large B-cell lymphoma of intra-abdominal lymph nodes (HCC) Other malignant lymphomas of intra-abdominal lymph nodes 01/09/2021 Diffuse large B-cell lymphoma of intra-abdominal lymph nodes (HCC) Other malignant lymphomas of intra-abdominal lymph nodes 01/12/2021 Encounter for chemotherapy management 01/12/2021 Diffuse large B-cell lymphoma of intra-abdominal lymph nodes (HCC) Other malignant lymphomas of intra-abdominal lymph nodes 01/12/2021 Acute deep vein thrombosis (DVT) of calf muscle vein of right lower extremity (HCC) 01/12/2021 Anticoagulation management encounter Encounter for therapeutic drug monitoring 01/12/2021 History of chemotherapy Personal history of antineoplastic chemotherapy 01/12/2021 History of immunotherapy 01/12/2021 Hoarseness of voice Dysphonia 01/14/2021 Hoarseness of voice Dysphonia 02/10/2021 Diffuse large B-cell lymphoma of intra-abdominal lymph nodes (HCC) Other malignant lymphomas of intra-abdominal lymph nodes 02/19/2021 Diffuse large B-cell lymphoma of intra-abdominal lymph nodes (HCC) Other malignant lymphomas of intra-abdominal lymph nodes 03/17/2021 Hoarseness of voice Dysphonia 04/04/2021 Acute deep vein thrombosis (DVT) of right peroneal vein (HCC) 04/09/2021 Diffuse large B-cell lymphoma of intra-abdominal lymph nodes (HCC) Other malignant lymphomas of intra-abdominal lymph nodes 04/10/2021 Diffuse large B-cell lymphoma of intra-abdominal lymph nodes (HCC) Other malignant lymphomas of intra-abdominal lymph nodes 04/13/2021 Encounter for chemotherapy management 04/13/2021 History of diffuse large B-cell lymphoma 04/13/2021 Anticoagulation management encounter Encounter for therapeutic drug monitoring 04/13/2021 Chemotherapy follow-up examination 04/13/2021 Chemotherapy-induced thrombocytopenia Other secondary thrombocytopenia 04/13/2021 Port-A-Cath in place Other postprocedural status 04/13/2021 Hypertension, unspecified type 04/13/2021 Nausea Nausea alone 04/13/2021 Sensorineural hearing loss (SNHL) of both ears 07/10/2021 Anticoagulation management encounter Encounter for therapeutic drug monitoring 07/13/2021 Chemotherapy follow-up examination 07/13/2021 History of diffuse large B-cell lymphoma 07/13/2021 History of diffuse large B-cell lymphoma 07/13/2021 Chemotherapy follow-up examination 07/13/2021 History of DVT of lower extremity Personal history of venous thrombosis and embolism 07/13/2021 Colitis Other and unspecified noninfectious gastroenteritis and colitis 08/24/2021 Right lower quadrant abdominal pain Abdominal pain, right lower quadrant 08/24/[address] of the abdomen Nonspecific (abnormal) findings on radiological and other examination of abdominal area, including retroperitoneum 08/24/2021 History of diffuse large B-cell lymphoma 10/09/2021 History of diffuse large B-cell lymphoma 10/12/2021 History of diffuse large B-cell lymphoma 10/12/2021 Pelvic mass Abdominal or pelvic swelling, mass or lump, unspecified site 10/12/2021 History of chemotherapy Personal history of antineoplastic chemotherapy 10/12/2021 Screening mammogram for high-risk patient 10/23/2021 History of diffuse large B-cell lymphoma 01/12/2022 History of diffuse large B-cell lymphoma 04/09/2022 History of diffuse large B-cell lymphoma 04/12/2022 Diffuse large B-cell lymphoma of intra-abdominal lymph nodes (HCC) Other malignant lymphomas of intra-abdominal lymph nodes 04/12/2022 History of diffuse large B-cell lymphoma 04/12/2022 History of chemotherapy Personal history of antineoplastic chemotherapy 04/12/2022 Encounter for venous access device care 04/12/2022 History of diffuse large B-cell lymphoma 07/12/2022 History of diffuse large B-cell lymphoma 10/08/2022 History of chemotherapy Personal history of antineoplastic chemotherapy 10/08/2022 History of diffuse large B-cell lymphoma 10/08/2022 History of diffuse large B-cell lymphoma 10/11/2022 Encounter for venous access device care 10/11/2022 History of chemotherapy Personal history of antineoplastic chemotherapy 10/11/2022 Encounter for screening mammogram for malignant neoplasm of breast Other screening mammogram 10/22/2022 History of diffuse large B-cell lymphoma 01/10/2023 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 01/26/2023 Regular astigmatism of right eye Regular astigmatism 01/26/2023 Nuclear sclerotic cataract of left eye Senile nuclear sclerosis 02/04/2023 Regular astigmatism of left eye Regular astigmatism 02/04/2023 History of diffuse large B-cell lymphoma 04/11/2023 History of diffuse large B-cell lymphoma 04/11/2023 Pelvic mass Abdominal or pelvic swelling, mass or lump, unspecified site 04/11/2023 History of chemotherapy Personal history of antineoplastic chemotherapy 04/11/2023 Encounter for venous access device care 04/11/2023 History of diffuse large B-cell lymphoma 07/11/2023 History of diffuse large B-cell lymphoma 10/07/2023 Pelvic mass Abdominal or pelvic swelling, mass or lump, unspecified site 10/07/2023 History of diffuse large B-cell lymphoma 10/10/2023 Ground glass opacity present on imaging of lung 10/10/2023 History of chemotherapy Personal history of antineoplastic chemotherapy 10/10/2023 Encounter for venous access device care 10/10/2023 History of diffuse large B-cell lymphoma 10/10/2023 Encounter for screening mammogram for high-risk patient 10/21/2023 Ground glass opacity present on imaging of lung 01/06/2024 History of diffuse large B-cell lymphoma 01/09/2024 History of diffuse large B-cell lymphoma 01/09/2024 Ground glass opacity present on imaging of lung 01/09/2024 History of chemotherapy Personal history of antineoplastic chemotherapy 01/09/2024 Subchondral bone cyst Cyst of bone (localized), unspecified 02/22/2024 Chambers cyst, left 02/23/2024 Knee strain, left, initial encounter 02/23/2024 Chambers cyst, left 02/24/2024 Knee strain, left, initial encounter 02/24/2024 Knee strain, left, initial encounter 02/28/2024 Complex tear of medial meniscus of left knee as current injury, initial encounter 02/28/2024 Complex tear of lateral meniscus of left knee as current injury, initial encounter 02/28/2024 Primary osteoarthritis of left knee Primary localized osteoarthrosis, lower leg 02/28/2024 Knee strain, left, initial encounter 04/06/2024 Complex tear of medial meniscus of left knee as current injury, initial encounter 04/06/2024 Primary osteoarthritis of left knee Primary localized osteoarthrosis, lower leg 04/06/2024 History of diffuse large B-cell lymphoma 04/10/2024 History of diffuse large B-cell lymphoma 06/19/2024 Knee strain, left, initial encounter 07/13/2024 Primary osteoarthritis of left knee Primary localized osteoarthrosis, lower leg 07/13/2024 Subdural hematoma, acute (HCC) Subdural hemorrhage 05/16/2015 Fall Unspecified fall 05/16/2015 Hematuria Hematuria, unspecified 05/16/2015 Retroperitoneal mass Abdominal or pelvic swelling, mass or lump, unspecified site 08/14/2020 Hypercalcemia 08/14/2020 CROW (acute kidney injury) Acute kidney failure, unspecified 08/14/2020 Colitis Other and unspecified noninfectious gastroenteritis and colitis 08/24/2021 Colitis Other and unspecified noninfectious gastroenteritis and colitis 08/25/2021 History of diffuse large B-cell lymphoma 08/25/2021 Constipation Unspecified constipation 08/25/2021 Goals Goal Patient Goal Type Associated Problems Recent Progress Patient-Stated? Author Maintain a healthy diet, exercise regularly and maintain an ideal body weight Beatriz Giraldo Care Teams Trains Dispatcher Supervisor Relationship Specialty Start Date End Date Anyi Caro APRN [address] [facility] [address] [place] [id number] PCP - General Nurse Practitioner 02/22/24 Sachin Gaytan DPM Automated Cutting Machine Operator-Primary Podiatric Medicine 12/20/13 Manjula Vyas MD [address] [place] [address] [id number] [id number] Medical Oncologist Internal Medicine-Hematology and Oncology 08/19/20
== END 2024-09-25 23:59 | disposition home or self-care (01) ==
LOC: LAB.DROPOF 09-26 10:05
PROVIDERS: PCP Nurse Practitioner; Visit Provider Nurse Practitioner
DX: N28.9 Disorder of kidney and ureter, unspecified (principal); I10 Essential (primary) hypertension; E55.9 Vitamin D deficiency, unspecified; R73.01 Impaired fasting glucose
CPT/HCPCS: 80053; 80061; 82043; 82306; 82570; 82607; 83036; 84443; 85025